=== PATIENT | female | born 1935 | race Caucasian/White ===

== ENCOUNTER 2024-11-24 11:55 | Emergency (ER) | payer MEDICARE, BC, SELFPAY ==
[2024-11-24 12:05] VITALS: BP 114/56; PULSE 88; RESP 18; TEMP 36.6; O2SAT 94
--- NOTE | 2024-11-24 12:08 | XR_ITS ---
Examination: AP chest single view TECHNIQUE: AP sitting portable chest single view Exam date and time: November 24, 2024 12:33 PM INDICATIONS: Shortness of breath today. FINDINGS: Large retrocardiac gastric hernia Pneumonia left base obscuring detail left hemidiaphragm Moderate vascular congestion Mild enlargement cardiac contour Prominent osteopenia with old right-sided rib fractures and bilateral shoulder arthroplasties IMPRESSION: Mild left base pneumonia Mild heart failure
[2024-11-24] MEDS: SCOPOLAMINE 1 MG TDSY TOP (14:16)
[2024-11-24] MEDS: ALPRazoLAM 0.25 MG TABLET 0.5 MG PO (14:16)
[2024-11-24] MEDS: AZITHROMYCIN 250 MG TABLET 500 MG PO (14:16)
--- NOTE | 2024-11-24 14:18 | PD.EDSOB ---
ED SOB =RME/HPI General Chief Complaint: Shortness of Breath/Dyspnea Stated Complaint: SOB, WEAKNESS Time Seen by Provider: 11/24/24 12:00 Arrival date/time: 11/24/24 11:55 RME / HPI RME / HPI Narrative: This section includes all my notes and documentations, including HPI, PE, and ED course. Pieter Schultz MD HPI: 89-year-old female here with about a week history of worsening cough, productive cough, purulent sputum, and dyspnea. No fever or chills. No orthopnea. No leg pain or swelling. She also reports dizziness, spinning sensation. No speech or visual impairment. No loss of power in arms or legs. No other complaints. ROS: All negative except as documented in HPI. Physical Exam: General: Alert and oriented. Appears anxious. Eyes: Conjunctivae and lids clear. EOMI. PERRL. ENT: No nasal congestion. Pharynx normal. Tympanic membrane normal bilaterally. Neck: Supple. No carotid bruit. No JVD. Heart: RRR. Lungs: No respiratory distress. Good air movement with scattered rhonchi. Abdomen: Soft and nontender. Legs: No clubbing, cyanosis, edema. Skin: Warm and dry. Neuro: Alert and oriented X 3. Cranial Nerves II-XII grossly intact. No peripheral motor deficits. I reviewed all diagnostic test results. My interpretation of the chest x-ray is increased bronchial markings. COVID/influenza negative. At this point, diagnoses include low respiratory infection and vertigo and anxiety. Treatment here included Zithromax and Xanax and scopolamine patch. Significant improvement noted. Recommended a trial of treatment at home. Based on my best medical judgment, made decision no further evaluation or treatment indicated at this time. Patient understands and agrees to the discharge instructions customized and printed, see below. Discharge instructions from Dr. Schultz: --No physical exertion for 3 days to help rest the lungs. ?-No smoking or exposure to smoking or pets or dust or cold or humidity. --Zithromax to kill the germs causing the bronchitis. --Prednisone to help decrease the swelling in the airways. --Albuterol 2 puffs every 4-6 hours as needed for cough or shortness of breath. --In case you have starting CHF, take Lasix 20 mg daily for 7 days then as needed. And when resting or sleeping, elevate your feet/ankles above your waist level and elevate head of bed. And limit all fluid intake to 4 cups per 24 hours for 3 full days. --See a private doctor on 11/28/2024 if not completely better. --Seek immediate medical care with worsening or with any concerns. Pieter Schultz MD Related Data Home Medications ?Medication ?Instructions ?Recorded ?Confirmed meclizine 25 mg tablet 25 mg PO QDAY PRN Dizziness 07/23/23 03/06/24 buspirone 15 mg tablet 15 mg PO QDAY 03/06/24 03/06/24 famotidine 10 mg tablet 10 mg PO QDAY 03/06/24 03/06/24 losartan 25 mg tablet 25 mg PO QDAY 03/06/24 03/06/24 venlafaxine 150 mg 150 mg PO BID 03/06/24 03/06/24 capsule,extended release 24 hr Previous Rx's ?Medication ?Instructions ?Recorded albuterol sulfate 90 mcg/actuation 2 inh inhalation QID PRN shortness 11/24/24 aerosol inhaler of breath or wheezing #8.5 grams azithromycin 500 mg tablet 500 mg PO QDAY 3 days #3 tabs 11/24/24 (Zithromax TRI-MOSES) furosemide 20 mg tablet (Lasix) 20 mg PO QDAY #30 tabs 11/24/24 prednisone 20 mg tablet 40 mg PO DAILY 3 days #6 tabs 11/24/24 Allergies Allergy/AdvReac Type Severity Reaction Status Date / Time ciprofloxacin Allergy Intermediate itching Verified 03/06/24 11:37 morphine Allergy Verified 03/06/24 11:37 vancomycin Allergy Verified 03/06/24 11:37 Course Quality Measures none Orders Category Date Time Status Bedside COVID-19 Antigen Test NOW Care 11/24/24 12:08 Active Bedside Influenza A&B Antigen Test NOW Care 11/24/24 12:08 Active Glucose [Bedside Blood Glucose] NOW Care 11/24/24 12:31 Active XR chest 1V portable Stat Exams 11/24/24 12:08 Completed ALPRazoLAM [Xanax] Med 11/24/24 12:07 Discontinued 0.5 mg PO X1 ONE Azithromycin Po [Zithromax PO] Med 11/24/24 14:00 Discontinued 500 mg PO X1 ONE Scopolamine [Transderm-Scop Patch] Med 11/24/24 12:07 Discontinued 1 mg TOP X1 ONE Vital Signs Vital signs: Vital Signs Temperature 97.9 F 11/24/24 12:05 Pulse Rate 88 11/24/24 12:05 Respiratory Rate 18 11/24/24 12:05 Blood Pressure 114/56 L 11/24/24 12:05 Pulse Oximetry (%) 94 L 11/24/24 12:05 Oxygen Delivery Method Room Air 11/24/24 12:05 Shortness of Breath / Dyspnea Patient data External records reviewed:: [facility] previous records Clinical information provided by:: patient Social determinants that could affect healthcare access:: none Patient has the following chronic illnesses:: Anxiety and DM How is presenting disease/condition affected by chronic disease/condition?: exacerbated by Evaluation data The following diagnostics were reviewed and interpreted by me:: lab results and radiology exam(s) Lab and/or radiology exams considered but not ordered:: None Interpretation Summary: Low respiratory infection Medications / Prescriptions Medications or Prescriptions considered but not ordered:: None Medication administrations:: Medication Administration History Discontinued Medications Alprazolam (Alprazolam 0.25 Mg Tablet) 0.5 mg PO X1 ONE Stop: 11/24/24 12:08 Last Admin: 11/24/24 14:16 Dose: 0.5 mg Documented By: SUE Azithromycin (Azithromycin 250 Mg Tablet) 500 mg PO X1 ONE Stop: 11/24/24 14:01 Last Admin: 11/24/24 14:16 Dose: 500 mg Documented By: SUE Scopolamine (Scopolamine 1 Mg Tdsy) 1 mg TOP X1 ONE Stop: 11/24/24 12:08 Last Admin: 11/24/24 14:16 Dose: 1 mg Documented By: SUE Xanax and Zithromax and scopolamine patch Consultations Consultation(s) initiated? (list below): No Diagnosis Shortness of Breath Differential Diagnosis: acute exacerbation of chronic obstructive airways disease, congestive heart failure, community acquired pneumonia, asthma with exacerbation and other (Bronchitis, lower respiratory infection) Most likely diagnosis given after review of the tests above:: Low respiratory infection Admission Indicated Admission indicated?: not indicated Explain why admission is indicated or not indicated:: Admission criteria not met Admission Request Was there a request for admission?: No Disposition Plan Disposition Plan: Discharge Discharge Attestation Discharge Attestation: The patient and all family members were given an opportunity to ask questions and understood the discharge instructions. Discharge instructions specifically effects, indications for sooner follow up or return to the emergency department, and the expected course of current diagnosis. Patient condition: Stable Discharge Plan Plan Patient Disposition: HOME (Self Care) Prescriptions/Referrals Prescriptions/Med Rec: New prednisone 20 mg tablet 40 mg PO DAILY 3 Days Qty: 6 0RF Taper: Prednisone Taper 20 mg DAILY for 2 Days and 0 Hour 10 mg DAILY for 2 Days and 0 Hour 5 mg DAILY for 7 Days and 0 Hour furosemide [Lasix] 20 mg tablet 20 mg PO QDAY Qty: 30 0RF albuterol sulfate 90 mcg/actuation HFA aerosol inhaler 2 inh inhalation QID PRN (Reason: shortness of breath or wheezing) Qty: 8.5 0RF azithromycin [Zithromax TRI-MOSES] 500 mg tablet 500 mg PO QDAY 3 Days Qty: 3 0RF No Action meclizine 25 mg tablet 25 mg PO QDAY PRN (Reason: Dizziness) Patient Comments: Take 1 tablet oral once a day as needed famotidine 10 mg Tablet 10 mg PO QDAY venlafaxine 150 mg capsule,extended release 24hr 150 mg PO BID Patient Comments: TAKE 1 CAPSULE (150 MG TOTAL) TWO TIMES DAILY BY MOUTH losartan 25 mg Tablet 25 mg PO QDAY buspirone 15 mg Tablet 15 mg PO QDAY Problem List Clinical Impression: Lower respiratory infection Patient/Caregiver Discharge Instructions Additional Instructions: Discharge instructions from Dr. Schultz: --No physical exertion for 3 days to help rest the lungs. ?-No smoking or exposure to smoking or pets or dust or cold or humidity. --Zithromax to kill the germs causing the bronchitis. --Prednisone to help decrease the swelling in the airways. --Albuterol 2 puffs every 4-6 hours as needed for cough or shortness of breath. --In case you have starting CHF, take Lasix 20 mg daily for 7 days then as needed. And when resting or sleeping, elevate your feet/ankles above your waist level and elevate head of bed. And limit all fluid intake to 4 cups per 24 hours for 3 full days. --See a private doctor on 11/28/2024 if not completely better. --Seek immediate medical care with worsening or with any concerns. Print Language: Portuguese Stand Alone Forms: Joycelyn Award Info., Patient Portal Info Letter
== END 2024-11-24 14:23 | disposition home or self-care (01) ==
LOC: SERX 14:21
PROVIDERS: Emergency Provider Emergency Medicine; PCP Family Medicine
DX: J22 Unspecified acute lower respiratory infection (principal); R42 Dizziness and giddiness; F41.9 Anxiety disorder, unspecified
CPT/HCPCS: 71045; 99283; A9270

== ENCOUNTER 2025-01-09 15:03 | Inpatient (IN) | payer MEDICARE, BC, SELFPAY ==
[2025-01-09] VITALS (15 sets, daily range): BP systolic 95–196; BP diastolic 49–106; PULSE 68–97; RESP 16–25; TEMP 35.6–37.1; O2SAT 77–98; BMI 23.9
--- NOTE | 2025-01-09 15:27 | EDNOTE_ITS ---
ED Recheck Abnl Lab Rx-RME/HPI General Chief Complaint: Recheck/Abnormal Lab/Rx Stated Complaint: ANEMIA Time Seen by Provider: 01/09/25 15:06 Arrival date/time: 01/09/25 15:03 RME / HPI RME / HPI narrative: 89-year-old female patient with significant history of COPD (2L oxygen at home at nights), DM2, depression, gastric ulcer, valley fever, and chronic vertigo was advised by PCP for evaluation regarding severe anemia. According to the patient has been battling with primary all her life, for the last several weeks been getting worse, described as dyspnea exertion, easy fatigability, low energy, and not feeling well. Patient denies any vomiting blood or blood in the stool. Denies any changes in the stool color. Related Data Home Medications ?Medication ?Instructions ?Recorded ?Confirmed meclizine 25 mg tablet 25 mg PO QDAY PRN Dizziness 07/23/23 03/06/24 buspirone 15 mg tablet 15 mg PO QDAY 03/06/2403/06 famotidine 10 mg tablet 10 mg PO QDAY 03/06/2403/06 losartan 25 mg tablet 25 mg PO QDAY 03/06/2403/06 venlafaxine 150 mg 150 mg PO BID 03/06/2403/06 capsule,extended release 24 hr Previous Rx's ?Medication ?Instructions ?Recorded albuterol sulfate 90 mcg/actuation 2 inh inhalation QI D PRN shortness 11/24/24 aerosol inhaler of breath or wheezing #8.5 g lino furosemide 20 mg tablet (Lasix) 20 mg PO QDAY #30 tabs 11/24/24 Allergies Allergy/AdvReac Type Severity Reaction Status Date / Time ciprofloxacin Allergy Intermediate itching Verified 03/06/24 11:37 morphine Allergy Verified 03/06/24 11:37 vancomycin Allergy Verified 03/06/24 11:37 Review of Systems Review of Systems Narrative Review of Systems: Review of system reviewed and within normal limits except mentioned in HPI ED Exam Narrative Physical exam: VITAL SIGNS: Reviewed. GENERAL APPEARANCE: Alert and interactive, follows commands, no acute distress, HEAD AND FACE: Non-traumatic. ENT: PERRL, pale conjunctiva, eyelid no trauma, Mucous membrane moist. NECK: Supple, nontender, no nuchal rigidity. CHEST: No tenderness, no crepitus, no paradoxical movement, no retractions. LUNGS: Clear, well ventilated, symmetric, no rales, no wheezing, no ronchi, no stridor, good breath sounds bilaterally. HEART: Regular rate, regular rhythm, no murmur, no gallops. ABDOMEN: Soft, positive bowel sounds, nondistended, no guarding, nontender, no rebound, no masses, RECTAL: Deferred. GENITAL: Deferred. NEUROLOGICAL: Gross motor function intact sensory function intact, Appropriate for age. MUSCULOSKELETAL: low back nontender, full range of motion. EXTREMITIES: Nontender, full range of motion. SKIN: Color pale, dry, no rash, no lacerations, no abrasions, no contusions. LYMPHATICS: Deferred. Course Quality Measures none Orders Category Date Time Status COVID-19 Screening Questionnaire NOW Care 01/09/25 23:27 Active Decision to Admit X1 Care 01/09/25 23:27 Completed EKG (ED ONLY) *Do not use* NOW Care 01/09/25 15:30 Completed [place] to [place] Routine Care 01/09/25 23:17 Ordered Miscellaneous Nursing Order X1 Care 01/10/25 01:12 Active Occult Blood,Stool (Nursing) NOW Care 01/09/25 15:30 Active Transfuse,blood/blood products ONCE Care 01/09/25 15:30 Active EKG (ED Only) Stat Exams 01/09/25 15:30 Draft XR chest 1V Stat Exams 01/09/25 15:52 Completed ABG [Arterial Blood Gas] Stat Lab 01/09/25 23:10 Completed ABG [Arterial Blood Gas] Stat Lab 01/10/25 01:05 Completed Blood Culture (Lab) Stat Lab 01/09/25 04:40 Received CBC Stat Lab 01/09/25 16:00 Completed Comprehensive Metabolic Panel Stat Lab 01/09/25 16:00 Completed Lactate (Lactic Acid) Stat Lab 01/09/25 04:42 Completed Occult Blood, Stool (LAB) Stat Lab 01/09/25 19:35 Ordered Partial Thromboplastin Time Stat Lab 01/09/25 16:00 Completed Procalcitonin Stat Lab 01/09/25 16:00 Completed Prothrombin Time with INR Stat Lab 01/09/25 16:00 Completed Type and Screen Stat Lab 01/09/25 16:00 Completed Urinalysis Stat Lab 01/10/25 00:53 Completed prbc [Red Blood Cells] Stat Lab 01/09/25 16:00 Completed Azithromycin Inj [Zithromax Inj] 500 mg Med 01/09/25 22:49 Discontinued Sodium Chloride 0.9% 250 ml [Ns] 250 ml IV X1 Furosemide Inj [Lasix Inj] Med 01/09/25 22:44 Discontinued 80 mg IVP X1 ONE Nitroglycerin Oint 2% [Nitro-paste Oint 2%] Med 01/09/25 23:15 Discontinued 1 inch TOP X1 ONE Nitroglycerin/D5w 50 MG IVPB [Nitroglycerin in D5w Ivpb Med 01/09/25 23:40 Discontinued ] 50 mg in 250 ml IV 5 mcg/min cefTRIAXone [Rocephin] 1,000 mg Med 01/09/25 22:48 Discontinued SODIUM CHLORIDE 0.9% (Popper) [Ns 0.9% (P)] 50 ml IV X1 BiPAP / CPAP NOW RT 01/09/25 23:40 Active O2 [Oxygen Delivery] NOW RT 01/10/25 01:30 Active Vital Signs Vital signs: Vital Signs Temperature 98.1 F 01/09/25 15:23 Pulse Rate 68 01/09/25 15:23 Respiratory Rate 24 H 01/09/25 15:23 Blood Pressure 95/49 L 01/09/25 15:23 Pulse Oximetry (%) 77 L 01/09/25 15:23 Oxygen Delivery Method Nasal Cannula 01/09/25 15:23 Oxygen Flow Rate 3 01/09/25 15:23 Recheck / Abnormal Lab / Rx MDM Narrative MDM Narrative:: 89-year-old female patient with significant history of COPD (2L oxygen at home at nights), DM2, depression, gastric ulcer, valley fever, and chronic vertigo was advised by PCP for evaluation regarding severe anemia. According to the patient has been battling with primary all her life, for the last several weeks been getting worse, described as dyspnea exertion, easy fatigability, low energy, and not feeling well. Patient denies any vomiting blood or blood in the stool. Denies any changes in the stool color. Rectal exam last done by me, it was tested negative for occult blood. CBC showed WBC count of 7.4, hemoglobin was 4.7, hematocrit of 20.1. Platelet was noted to be 198. Carbon dioxide was noted to be 35.7. Chest x-ray showed Worsening pulmonary examination, including worsening pulmonary edema, airspace opacities, and moderate left greater than right pleural effusions. On multiple reevaluation, patient was noted to be to be less alert than seen earlier. ABG was done and showed CO2 of 98 pH of 7.19 Patient received 2 units of packed RBC, supraduction IV Zithromax IV, Lasix IV Santos catheter was inserted. And draining more than 1 L of urine after reposition. Care transferred to at 1130 pm for final disposition Patient data External records reviewed:: None Clinical information provided by:: patient Social determinants that could affect healthcare access:: none Patient has the following chronic illnesses:: Congestive heart failure COPD chronic anemia How is presenting disease/condition affected by chronic disease/condition?: caused by Evaluation data The following diagnostics were reviewed and interpreted by me:: lab results, radiology exam(s) and EKG tracing(s) Lab and/or radiology exams considered but not ordered:: None Interpretation Summary: See results in [facility] Medications / Prescriptions Medications or Prescriptions considered but not ordered:: None Medication administrations:: Medication Administration History Acetaminophen (Acetaminophen 325 Mg Tablet) 650 mg PO Q6H PRN PRN Reason: PAIN SCALE 1-3 (mild Stop: 02/09/25 01:49 Acetaminophen (Acetaminophen 325 Mg Tablet) 650 mg PO Q6H PRN PRN Reason: Fever >100.4 Stop: 02/09/25 01:49 Albuterol/Ipratropium (Albuterol/Ipratropium (Duoneb) Rt Shanelle 3 Ml Nebu) 3 ml INH Q6HRRT BRYNN Stop: 02/09/25 06:59 Last Admin: 01/10/25 12:57 Dose: 3 ml Documented By: Admin: 01/10/25 07:04 Dose: 3 ml Documented By: JV Furosemide (Furosemide Inj 10 Mg/Ml 4ml Vial) 40 mg IVP BID BRYNN Stop: 02/09/25 08:59 Last Admin: 01/10/25 10:39 Dose: 40 mg Documented By: BR Azithromycin 500 mg/ Sodium (Chloride) 250 mls @ 250 mls/hr IV HS BRYNN Stop: 01/17/25 20:59 Meclizine HCl (Meclizine Hcl 25 Mg Tablet) 25 mg PO QDAY BRYNN Stop: 02/09/25 08:59 Last Admin: 01/10/25 10:40 Dose: 25 mg Documented By: BR Prednisone (Prednisone 20 Mg Tablet) 40 mg PO QDAY [facility] Stop: 02/09/25 11:14 Last Admin: 01/10/25 12:59 Dose: 40 mg Documented By: BR Venlafaxine HCl (Venlafaxine Xr 37.5 Mg Capcr) 150 mg PO QDAY [facility] Stop: 02/09/25 08:59 Last Admin: 01/10/25 10:40 Dose: 150 mg Documented By: BR Discontinued Medications Acetaminophen (Acetaminophen 325 Mg Tablet) 650 mg PO Q6H PRN PRN Reason: Fever >101.5 Stop: 02/09/25 01:49 Furosemide (Furosemide Inj 10 Mg/Ml 4ml Vial) 80 mg IVP X1 ONE Stop: 01/09/25 22:45 Last Admin: 01/09/25 23:03 Dose: 80 mg Documented By: KG Ceftriaxone Sodium 1,000 mg/ (Sodium Chloride) 50 mls @ 100 mls/hr IV X1 ONE Stop: 01/09/25 23:17 Last Infusion: 01/10/25 00:03 Dose: Infused Documented By: Admin: 01/09/25 23:33 Dose: 100 mls/hr Documented By: KG Azithromycin 500 mg/ Sodium (Chloride) 250 mls @ 250 mls/hr IV X1 ONE Stop: 01/09/25 23:48 Last Infusion: 01/10/25 01:13 Dose: Infused Documented By: Admin: 01/10/25 00:09 Dose: 250 mls/hr Documented By: KG Nitroglycerin/Dextrose (Nitroglycerin In D5w Ivpb) 50 mg in 250 mls @ 1.5 mls/hr IV .Q24H PRN; Protocol PRN Reason: PER PROTOCOL Stop: 02/08/25 23:39 Last Titration: 01/10/25 01:35 Dose: 0 mcg/min, 0 mls/hr Documented By: Titration: 01/10/25 01:30 Dose: 5 mcg/min, 1.5 mls/hr Documented By: Titration: 01/10/25 01:25 Dose: 10 mcg/min, 3 mls/hr Documented By: Titration: 01/10/25 01:20 Dose: 15 mcg/min, 4.5 mls/hr Documented By: Titration: 01/10/25 01:14 Dose: 20 mcg/min, 6 mls/hr Documented By: Titration: 01/10/25 01:00 Dose: 25 mcg/min, 7.5 mls/hr Documented By: Titration: 01/10/25 00:55 Dose: 20 mcg/min, 6 mls/hr Documented By: Titration: 01/10/25 00:50 Dose: 15 mcg/min, 4.5 mls/hr Documented By: Titration: 01/10/25 00:40 Dose: 10 mcg/min, 3 mls/hr Documented By: Admin: 01/10/25 00:07 Dose: 5 mcg/min, 1.5 mls/hr Documented By: KG Ceftriaxone Sodium 1,000 mg/ (Sodium Chloride) 50 mls @ 100 mls/hr IV HS BRYNN Stop: 01/17/25 20:59 Nitroglycerin (Nitroglycerin Oint 2% 1 Inch Packet) 1 inch TOP X1 ONE Stop: 01/09/25 23:16 Last Admin: 01/09/25 23:42 Dose: Not Given Documented By: KG Non-Admin Reason: Other, see note Comments: per Dr. Hudson, start nitro drip instead 2 units of packed RBC, IV Lasix, Nitropaste, ceftriaxone and Zithromax Consultations Consultation(s) initiated? (list below): No Diagnosis Recheck Differential Diagnosis: other (Acute on chronic respiratory failure, congestive heart failure COPD exacerbation) Most likely diagnosis given after review of the tests above:: Severe anemia, acute on chronic respiratory failure with hypoxia, COPD exacerbation, pleural effusion bilateral Admission Indicated Admission indicated?: indicated Admission Request Was there a request for admission?: Yes Admission Attestation Admission request attestation: Discussed case with [Dr. Matthew] from Hospitalist service regarding admission. Discussed patients ED course, exam findings, labs, and radiology results. The Hospitalist [agrees,] to accept the patient for admission. Disposition Plan Disposition Plan: Admit Critical Care Time Critical Care Time Critical Care Time: Yes Total Critical Care Time (min.): 45 Attestation: Critical Care Time The very real possibility of a deterioration of this patient's condition required the highest level of my preparedness for sudden, emergent intervention for the following systems: Cardiac and Metabolic. I provided critical care services, which included medication orders, frequent re-evaluations of the patient's condition and response to treatment, ordering and reviewing test results, and discussing the case with various consultants including: nursing staff, hospitalist, and more. The critical care time associated with the care of this patient was 45 minutes. Discharge Plan Plan Patient Disposition: Admit Acute Care w/in Hospital Patient condition on transfer: Benefits outweigh risks Problem List Clinical Impression: Symptomatic anemia, History of COPD, Acute and chronic respiratory failure, unspecified whether with hypoxia or hypercapnia, Acute exacerbation of CHF (congestive heart failure), Pleural effusion, bilateral
--- NOTE | 2025-01-09 15:30 | EKG_ITS ---
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: : 1935 Requested By: Rosey Bower Order Number: [id number] Reading MD: Rosey Bower Measurements Intervals [place] Rate: 89 P: 28 [place]: 119 QRS: 104 QRSD: 123 T: 12 QT: 380 QTc: 462 Interpretive Statements SINUS RHYTHM WITH SHORT [place] INTERVAL RIGHT VENTRICULAR HYPERTROPHY [SOME/ALL OF: PROMINENT R IN V1, LATE TRANSITION, RAD, SHERYL, SSS] NONSPECIFIC ST & T-WAVE ABNORMALITY Compared to ECG 07/14/2023 12:23:27 Short [place] interval now present Right ventricular hypertrophy now present Ventricular premature complex(es) no longer present T-wave abnormality still present /store/S0/[id number]/ecg/[id number].pdf
--- NOTE | 2025-01-09 15:52 | XR_ITS ---
EXAMINATION: XR chest 1V ORDERING PROVIDER: SANTIAGO La HISTORY: hypoxia TECHNIQUE: Single portable AP radiograph of the chest. COMPARISON: 01/09/2025, 2725 chest radiographs. 05/03/2022, CT chest abdomen pelvis FINDINGS: Lines and Tubes: Overlying monitoring leads. Lungs: Worsened multi lobar airspace opacities and increased interstitial markings. Worsened left greater than right basilar volume loss/consolidations. Pleura: Moderate left, mild to moderate right blunted costophrenic angles no pneumothorax. Cardiomediastinal Silhouette: Large cardiomegaly, incompletely evaluated due to pleural effusions. Soft Tissues/Bones: Intrathoracic stomach. Previously seen right fifth through eighth rib fractures bilateral shoulder arthroplasty changes. Metallic density over the neck. IMPRESSION: Worsening pulmonary examination, including worsening pulmonary edema, airspace opacities, and moderate left greater than right pleural effusions.
[2025-01-09 16:16] LABS: Basophils % (Auto) 0 % (0-2.5); Eosinophils % (Auto) 0 % (0-10); Immature Granulocytes % (Auto) 1 % (0-0); Immature Granulocytes Auto 0.06 Thou/mm3 (0.00-0.00); Lymphocytes # (Auto) 0.8 Thou/mm3 (1.0-4.8); Lymphocytes % (Auto) 11 % (10-50); Mean Corpuscular HGB Conc 23.4 g/dl (31.0-37.0); Mean Corpuscular Hemoglobin 16.8 pg (25.0-35.0); Mean Corpuscular Volume 72 fL (80-100); Monocytes # (Auto) 0.6 Thou/mm3 (0.0-0.8); Monocytes % (Auto) 8 % (0-12); Neutrophils # (Auto) 5.9 Thou/mm3 (1.8-7.7); Neutrophils % (Auto) 80 % (37-80); Nucleated Red Blood Cell # 0.04 Thou/mm3 (0.00-0.00); Nucleated Red Blood Cell % 1 /100 WBC (0); Platelet Count 198 Thou/mm3 (140-440); RDW Standard Deviation 51.8 fL (36.4-46.3); Red Blood Count 2.79 Miln/mm3 (4.00-5.20); White Blood Count 7.4 Thou/mm3 (3.6-11.0)
[2025-01-09 16:25] LABS: Hematocrit 20.1 % (36.0-46.0)
[2025-01-09 16:26] LABS: Hemoglobin 4.7 g/dL (12.0-16.0)
[2025-01-09 16:48] LABS: Alanine Aminotransferase < 7 U/L (10-49); Albumin, Serum 3.7 gm/dL (3.4-4.8); Albumin/Globulin Ratio 1.2 (1.2-2.2); Alkaline Phosphatase 74 U/L (46-116); Anion Gap 9 (7-16); Aspartate Amino Transferase 15 U/L (0-34); BUN/Creatinine Ratio 14 Ratio (12-20); Bilirubin,Total 0.7 mg/dL (0.3-1.2); Blood Urea Nitrogen 11 mg/dL (9-23); Calcium 8.5 mg/dL (8.3-10.6); Calcium (Corrected) 8.7 mg/dL (8.5-10.1); Carbon Dioxide 35.7 mMol/L (20.0-31.0); Chloride 100 mMol/L (98-107); Creatinine (Component) 0.8 mg/dL (0.6-1.3); Glucose 143 mg/dL (74-106); Osmolality,Calculated 290 (275-295); Potassium 3.8 mMol/L (3.4-5.1); Sodium 145 mMol/L (136-145); Total Protein 6.7 gm/dL (5.7-8.2); eGFR > 60 See Note
[2025-01-09 17:34] LABS: INR 1.2 (0.9-1.3); Partial Thromboplastin Time 20.3 Seconds (22.0-36.0)
[2025-01-09] MEDS: FUROSEMIDE INJ 10 MG/ML 4ML VIAL 80 MG IVP (23:03)
--- NOTE | 2025-01-09 23:12 | PC.NURSE ---
Lab at the bedside to draw blood. Audit Reviewer informed that pt currently receiving blood products and they stated blood draw would have to be done when pt no longer receiving blood products. Informed ordering provider SPENSER Currie. Asked him whether he wants to wait until all blood products are infused and then blood cultures drawn for antibiotics to be given or go ahead and give antibiotics not - provider states to give antibiotics now.
[2025-01-09 23:17] LABS: Base Excess 7 (-3-3); HCO3 37 mEq/L (20-26); Inspired Oxygen, FIO2 36 %; O2 Saturation 88 % (91-98); PCO2 98 mmHg (32.0-48.0); PO2 63 mmHg (83-108)
[2025-01-09 23:18] LABS: Allen Test Performed/OK; Puncture Site Left Radial
[2025-01-09 23:19] LABS: pH, Arterial 7.19 (7.35-7.45)
[2025-01-09] MEDS: cefTRIAXone 1,000 MG in SODIUM CHLORIDE 0.9% (Popper) 50 ML 100 MG IV (23:33)
--- NOTE | 2025-01-09 23:39 | PD.EDADDENDU ---
Emergency Room Addendum Addendum Narrative: Patient is admitted. ICU is at the bedside. Care is taken over from the PA at 2315. Patient is short of breath. Patient did have her oxygen up to 4L, which could likely explain the increase of CO2. The combination of her pleural effusions, CHF, and anemia are likely the etiology of the patient's symptoms. Patient is awake and responding to my questions. She is able to tell me that she wants to be a full code with intubation. Nitroglycerin and diuresis ordered. 2349: Bedside US done by me to check for fiore placement identification. 2V bladder view obtained. US done by me showed a full bladder. I do not see the fiore in the bladder. Nursing will replace the fiore catheter. 0105: Fiore catheter was replaced. 1200cc of clear urine noted to be in the fiore bag. 0108: Discussed case with [the resident physician, attending Dr. Louise] from Hospitalist service regarding admission. Discussed patients ED course, exam findings, labs, and radiology results. The Hospitalist [agrees] to accept the patient for admission. Critical Care Time: 45 minutes The high probability of sudden, clinically significant deterioration in the patient?s condition required the highest level of my preparedness to intervene urgently. The services I provided to this patient were to treat and/or prevent clinically significant deterioration. Services included the following: chart data review, reviewing nursing notes and/or old charts, documentation time, virtualization consultant collaboration regarding findings and treatment options, medication orders and management, direct patient care, vital sign assessments and ordering, interpreting and reviewing diagnostic studies and lab tests. Aggregate critical care time includes only time during which I was engaged in work directly related to the patient?s care, as described above, whether at bedside or elsewhere in the Emergency Department. It did not include time spent performing other reported procedures or the services of residents, students, nurses or physician assistants.
--- NOTE | 2025-01-09 23:43 | PC.NURSE ---
RT at the bedside, pt placed on bipap at this time.
[2025-01-10] VITALS (26 sets, daily range): BP systolic 114–174; BP diastolic 53–81; PULSE 67–91; RESP 16–26; TEMP 35.6–36.6; O2SAT 86–100
[2025-01-10 00:02] LABS: Procalcitonin 0.09 ng/ml (0.0-0.49)
[2025-01-10] MEDS: Nitroglycerin/D5w 50 MG IVPB 50 MG/250 ML BTL IV (00:07)
[2025-01-10] MEDS: AZITHROMYCIN INJ 500 MG in SODIUM CHLORIDE 0.9% 250 ML 250 ML 250 MG IV ×2 (00:09→20:54)
--- NOTE | 2025-01-10 01:05 | PC.NURSE ---
RT at the bedside for ABG
[2025-01-10 01:11] LABS: Base Excess 11 (-3-3); HCO3 40 mEq/L (20-26); O2 Saturation 94 % (91-98); PCO2 83 mmHg (32.0-48.0); PO2 70 mmHg (83-108); pH, Arterial 7.29 (7.35-7.45)
--- NOTE | 2025-01-10 01:12 | PC.NURSE ---
Dr. Hudson at the bedside, verbal order to wean pt off nitroglycerin drip at this time now that pt has voided a significant amount.
[2025-01-10 01:13] LABS: Allen Test Performed/OK; Inspired Oxygen, FIO2 35 %; Puncture Site Right Radial
--- NOTE | 2025-01-10 01:42 | PC.NURSE ---
Admitting resident at the bedside.
--- NOTE | 2025-01-10 02:07 | PD.RESHP ---
Documentation for date of: 01/10/25 [facility] History of Present Illness History of present illness: The patient is an 89-year-old female with significant past medical history of COPD on 2 L home oxygen at night, diabetes mellitus type 2, gastric ulcer, depression, valley fever, chronic vertigo with on and off anemia presented to ED with chief complaint of SOB that has been worsening for past several weeks. She reported that she lives with her friend at home who has [employer] training. She reported having low energy, bilateral lower limb edema, easy fatigability and weak. She also admitted mild lightheadedness, but denied any sore throat, chest pain, abdominal pain, any changes in bowel or bladder habit including any discoloration or blood in the stool. She also denied any fever or chills, nausea or vomiting. In the ED, vitals were initially fairly stable, but later on her SOB worsened and her blood pressure was elevated up to 190s systolic. She was saturating on 3 L NC, later was switched to BiPAP. Labs were significant for hemoglobin 4.4, hematocrit 19.1, MCV 73, RDW 52.1, PT 13.0, INR 1.2, PTT 20.3. Blood gas in the late evening at 2310 revealed pH 7.19, pCO2 98, pO2 63, bicarb 37. The patient was placed on BiPAP, and ABG improved with pH 7.29, pCO2 83, pO2 70 and HCO3 40. Chemistry panel revealed sodium 145, potassium 3.8, bicarb 35.7, blood sugar 143, lipid profile WNL, vitamin B12 and folate WNL. UA revealed urine nitrite positive, leukocyte esterase positive, WBC 7 with 4+ bacteria. Stool occult blood negative. CXR revealed moderate chronic heart failure, and repeat CXR revealed worsening of pulmonary edema with bilateral pleural effusions. PMH: As mentioned above SHX: Cholecystectomy, bilateral knee replacement, bilateral shoulder surgery Family history: Extensive cardiac history on mother, father and sister with CHF Social history: Denies ever smoking cigarette, but admitted secondhand exposure with her father, denies drinking alcohol or any illicit drug use In the ED, patient was given IV furosemide 80 Mg x 1, ceftriaxone 1 g x 1, nitroglycerin 1 inch topical patches, azithromycin 500 Mg IV x 1, and started on nitroglycerin drip 50 Mcg per minute. Patient was given total of 3 units of PRBC. She was admitted to telemetry unit for further management of acute hypoxic hypercapnic respiratory failure 2/2 COPD exacerbation and severe symptomatic anemia Review of Systems Review of Systems Systems Reviewed: All systems reviewed, normal except as documented Exam Vital Signs Temp Pulse Resp BP Pulse Ox O2 Del Method O2 Flow Rate 96.7 F L 85 22 H 151/71 H 98 BiPAP 2 01/10/25 00:44 01/10/25 01:35 01/10/25 01:35 01/10/25 00:59 01/10/25 01:35 01/10/25 00:59 01/10/25 01:33 FiO2 35 01/10/25 01:35 Narrative Exam General: Elderly, cooperative female, no acute distress, Alert and Oriented x 3 HEENT: Moist mucous membranes, oropharynx clear Neck: Supple, No masses, No JVD CVS: S1S2 Regular rate and rhythm, severe crescendo-decrescendo systolic murmur over right second and the left base Lungs: Clear to auscultation with no accessory use, no wheeze no rhonchi Abd: Soft, NT/ND, +BS, no organomegaly Ext: 3-4+ bilateral lower limb edema extended up to the mid thigh, erythema of left toes Skin: No rash Psych: Appropriate mood and affect Results: Labs 01/10/25 04:42 01/10/25 04:42 Labs: Short CBC 01/09/25 Range/Units 16:00 WBC 7.4 (3.6-11.0) Thou/mm3 Hgb 4.7 L* (12.0-16.0) g/dL Hct 20.1 L* (36.0-46.0) % Plt Count 198 D (140-440) Thou/mm3 BMP 01/09/25 16:00 Sodium 145 Potassium 3.8 D Chloride 100 Carbon Dioxide 35.7 H BUN 11 Creatinine 0.8 Glucose 143 H Calcium 8.5 Liver Function 01/09/25 Range/Units 16:00 Total Bilirubin 0.7 (0.3-1.2) mg/dL AST 15 (0-34) U/L ALT < 7 L (10-49) U/L Alkaline Phosphatase 74 (46-116) U/L Albumin 3.7 (3.4-4.8) gm/dL ABG Interpretation ABG results: 01/09/25 01/10/25 23:10 01:05 ABG pH 7.19 L* 7.29 L D ABG pCO2 98 H* 83 H* D ABG pO2 63 L 70 L ABG HCO3 37 H 40 H ABG O2 Saturation 88 L 94 ABG Base Excess 7 H 11 H Quality Measures Quality Measures VTE prophylaxis Advance care planning discussed with:: patient Medications Home Medications and Allergies Home Medications ?Medication ?Instructions ?Recorded ?Confirmed ?Type meclizine 25 mg tablet 25 mg PO QDAY PRN Dizziness 07/23/23 03/06/24 History buspirone 15 mg tablet 15 mg PO QDAY 03/06/24 03/06/24 History famotidine 10 mg tablet 10 mg PO QDAY 03/06/24 03/06/24 History losartan 25 mg tablet 25 mg PO QDAY 03/06/24 03/06/24 History venlafaxine 150 mg 150 mg PO BID 03/06/24 03/06/24 History capsule,extended release 24 hr Allergies Allergy/AdvReac Type Severity Reaction Status Date / Time ciprofloxacin Allergy Intermediate itching Verified 03/06/24 11:37 morphine Allergy Verified 03/06/24 11:37 vancomycin Allergy Verified 03/06/24 11:37 Visit Medications Acetaminophen (Acetaminophen 325 Mg Tablet) 650 mg PO Q6H PRN PRN Reason: Fever >101.5 Stop: 02/09/25 01:49 Acetaminophen (Acetaminophen 325 Mg Tablet) 650 mg PO Q6H PRN PRN Reason: PAIN SCALE 1-3 (mild Stop: 02/09/25 01:49 Albuterol/Ipratropium (Albuterol/Ipratropium (Duoneb) Rt Shanelle 3 Ml Nebu) 3 ml INH Q6HRRT BRYNN Stop: 02/09/25 06:59 Furosemide (Furosemide Inj 10 Mg/Ml 4ml Vial) 40 mg IVP BID BRYNN Stop: 02/09/25 08:59 Azithromycin 500 mg/ Sodium (Chloride) 250 mls @ 250 mls/hr IV HS BRYNN Stop: 01/17/25 20:59 Ceftriaxone Sodium 1,000 mg/ (Sodium Chloride) 50 mls @ 100 mls/hr IV HS BRYNN Stop: 01/17/25 20:59 Discontinued Medications Furosemide (Furosemide Inj 10 Mg/Ml 4ml Vial) 80 mg IVP X1 ONE Stop: 01/09/25 22:45 Last Admin: 01/09/25 23:03 Dose: 80 mg Ceftriaxone Sodium 1,000 mg/ (Sodium Chloride) 50 mls @ 100 mls/hr IV X1 ONE Stop: 01/09/25 23:17 Last Infusion: 01/10/25 00:03 Dose: Infused Azithromycin 500 mg/ Sodium (Chloride) 250 mls @ 250 mls/hr IV X1 ONE Stop: 01/09/25 23:48 Last Infusion: 01/10/25 01:13 Dose: Infused Nitroglycerin/Dextrose (Nitroglycerin In D5w Ivpb) 50 mg in 250 mls @ 1.5 mls/hr IV .Q24H PRN; Protocol PRN Reason: PER PROTOCOL Stop: 02/08/25 23:39 Last Titration: 01/10/25 01:35 Dose: 0 mcg/min, 0 mls/hr Nitroglycerin (Nitroglycerin Oint 2% 1 Inch Packet) 1 inch TOP X1 ONE Stop: 01/09/25 23:16 Last Admin: 01/09/25 23:42 Dose: Not Given Assessment & Plan Plan The patient is an 89-year-old female with significant past medical history of COPD on 2 L home oxygen at night, diabetes mellitus type 2, gastric ulcer, depression, valley fever, chronic vertigo with on and off anemia presented to ED with chief complaint of SOB that has been worsening for past several weeks She was admitted to telemetry unit for further management of acute hypoxic hypercapnic respiratory failure 2/2 COPD exacerbation and severe symptomatic anemia. #Acute hypoxic hypercapnic respiratory failure #Pulmonary edema #Possible CHF exacerbation #COPD exacerbation The patient complained of SOB that has been worsening for past several weeks, reported having low energy, bilateral lower limb edema, easy fatigability and weakness. Physical examination was significant for bilateral lower limb pitting edema extending up to mid thigh. Chest x-ray was significant for moderate CHF later was found to have pulmonary edema. ABG revealed pH 7.19 and PCO2 98. Received Lasix 80 Mg IV x 1 in the ED, ceftriaxone 1 g x 1, nitroglycerin drip -Started on IV Lasix 40 Mg twice daily -Started on BiPAP -Strict ins and outs -Duonebs Q6H -Limit fluid and salt intake when started on diet -Ceftriaxone 1 g IV daily and azithromycin 500 Mg IV daily in the setting of possible COPD exacerbation -TTE ordered, may consider consulting cardiology #Severe symptomatic microcytic anemia Likely secondary to mechanical destruction due to severe aortic stenosis Patient denied any dark bowel movement, or bloody on her stool, occult blood test was negative making GI blood loss less likely Physical examination was significant for severe crescendo-decrescendo midsystolic murmur at right second intercostal space Hemoglobin during presentation was 4.4, hematocrit 19.1, MCV 73, RDW 52.1 -Transfused 3 units of PRBC -Pending posttransfusion H&H -TTE ordered, may consider consulting cardiology -Iron panel, reticulocyte count, peripheral blood smear, ferritin level ordered -Continue to monitor H&H, and transfuse PRBC if hemoglobin less than 7 #Depression -Started on venlafaxine 150 Mg ER daily -Resume home medications after reconciliation #Chronic vertigo -Started on meclizine 25 Mg daily #Diabetes mellitus type 2 A1c ordered -Monitor BMP in the a.m. Health maintenance: Dispo: Patient admitted to telemetry unit for further management of acute hypoxic hypercapnic respiratory failures and severe symptomatic microcytic anemia Diet: N.p.o. for now DVT prophylaxis: SCDs CODE STATUS: DNR, okay to intubate if needed The patient's management plan was discussed with my attending physician MD Jose F Moyer MD, PGY2 Attending Provider Attestation/Addendum 89-year-old female with COPD was admitted for acute on chronic hypoxic and hypercapnic respiratory failure. The patient required BiPAP on presentation she had hypertensive urgency. The patient was given Lasix but she did not pass urine however the catheter was repositioned and she may need a good amount of urine afterwards. The patient also received nitroglycerin IV drip for her high blood pressure. Patient denies chest pain. She is tolerating BiPAP. She is more alert and oriented after 60 minutes on BiPAP she is making good amount of urine. The patient was started on packed red blood cell transfusion for severe symptomatic anemia. FOBT is negative. Discussed with housestaff
[2025-01-10 02:36] LABS: Collection Type, Urine Clean Catch; Squamous Epithelial Cell,Urine 0 /hpf (0-5)
[2025-01-10 02:49] LABS: Bacteria,Urine 2+; Bilirubin,Urine Negative (Negative); Blood,Urine Negative (Negative); Clarity,Urine Clear (Clear/Hazy); Color,Urine Colorless (Lt Yel-Yel); Glucose, Urine Negative (Negative); Hyaline Casts,Urine < 1 /hpf (0-1); Ketones,Urine Negative (Negative); Leukocyte Esterase,Urine Negative (Negative); Nitrite,Urine Negative (Negative); Protein,Urine Negative (Neg - Trace); RBC,Urine 1 /hpf (0-3); Specific Gravity,Urine 1.006 (1.001-1.035); Urobilinogen,Urine Negative mg/dL (0.0-1.0); WBC,Urine 1 /hpf (0-5)
[2025-01-10 05:08] LABS: Lactate (Lactic Acid) 1.1 mMol/L (0.4-2.0)
[2025-01-10 05:16] LABS: Basophils % (Auto) 0 % (0-2.5); Eosinophils % (Auto) 0 % (0-10); Hematocrit 32.2 % (36.0-46.0); Hemoglobin 9.1 g/dL (12.0-16.0); Immature Granulocytes % (Auto) 1 % (0-0); Lymphocytes # (Auto) 0.5 Thou/mm3 (1.0-4.8); Lymphocytes % (Auto) 6 % (10-50); Mean Corpuscular HGB Conc 28.3 g/dl (31.0-37.0); Mean Corpuscular Hemoglobin 21.5 pg (25.0-35.0); Mean Corpuscular Volume 76 fL (80-100); Monocytes # (Auto) 0.9 Thou/mm3 (0.0-0.8); Monocytes % (Auto) 11 % (0-12); Neutrophils # (Auto) 6.7 Thou/mm3 (1.8-7.7); Neutrophils % (Auto) 82 % (37-80); Nucleated Red Blood Cell # 0.06 Thou/mm3 (0.00-0.00); Nucleated Red Blood Cell % 1 /100 WBC (0); Platelet Count 125 Thou/mm3 (140-440); RDW Standard Deviation 54.5 fL (36.4-46.3); Red Blood Count 4.24 Miln/mm3 (4.00-5.20); White Blood Count 8.2 Thou/mm3 (3.6-11.0)
[2025-01-10 05:34] LABS: Ferritin 11 ng/mL (7.3-270.7); Iron 11 mcg/dL (50-170); Percent Iron Saturation 2 % (20-55); Total Iron Binding Capacity 451 mcg/dL (250-425); Unsaturated Iron Binding 440 (225-295)
[2025-01-10 05:39] LABS: Glucose Estimated Average 114 mg/dL (80-131); Hemoglobin A1C 5.6 % Hgb (4.8-6.0)
[2025-01-10 05:51] LABS: Alanine Aminotransferase < 7 U/L (10-49); Albumin, Serum 3.9 gm/dL (3.4-4.8); Albumin/Globulin Ratio 1.3 (1.2-2.2); Alkaline Phosphatase 78 U/L (46-116); Anion Gap 7 (7-16); Aspartate Amino Transferase 14 U/L (0-34); BUN/Creatinine Ratio 15 Ratio (12-20); Bilirubin,Total 0.7 mg/dL (0.3-1.2); Blood Urea Nitrogen 12 mg/dL (9-23); Calcium 8.5 mg/dL (8.3-10.6); Calcium (Corrected) 8.6 mg/dL (8.5-10.1); Carbon Dioxide > 40.0 mMol/L (20.0-31.0); Cardiac Risk Estimate 2.3 RATIO (3.7-5.6); Chloride 97 mMol/L (98-107); Cholesterol 77 mg/dL (132-200); Creatinine (Component) 0.8 mg/dL (0.6-1.3); Glucose 156 mg/dL (74-106); HDL Cholesterol 34 mg/dL (40-60); LDH (Lactate Dehydrogenase) 176 U/L (120-246); LDL Cholesterol,Calculated 24 mg/dL (0-130); Magnesium 1.9 mg/dL (1.6-2.6); Osmolality,Calculated 289 (275-295); Potassium 3.4 mMol/L (3.4-5.1); Sodium 144 mMol/L (136-145); Thyroid Stimulating Hormone 0.72 uIU/mL (0.55-4.78); Total Protein 6.9 gm/dL (5.7-8.2); Triglycerides 94 mg/dL (30-150); eGFR > 60 See Note
--- NOTE | 2025-01-10 06:53 | PC.NURSE ---
RT at the bedside.
[2025-01-10] MEDS: ALBUTEROL/IPRATROPIUM (Duoneb) RT SOL 3 ML NEBU INH ×3 (07:04→18:05)
--- NOTE | 2025-01-10 07:50 | PC.NURSE ---
report given to Abbe on tele floor. pt to go to room 276
--- NOTE | 2025-01-10 09:47 | PD.RESPRO ---
Documentation for date of: 01/10/25 Exam Vital Signs Temp Pulse Resp BP Pulse Ox O2 Del Method O2 Flow Rate 97.0 F 85 26 H 141/68 H 95 BiPAP 35 01/10/25 07:51 01/10/25 08:55 01/10/25 08:55 01/10/25 07:51 01/10/25 08:55 01/10/25 07:51 01/10/25 07:12 FiO2 40 01/10/25 08:55 Objective Labs 01/10/25 04:42 01/10/25 04:42 Labs: Laboratory Results - last 24 hr 01/09/25 01/09/25 01/09/25 04:42 16:00 23:10 WBC 7.4 RBC 2.79 L Hgb 4.7 L* Hct 20.1 L* MCV 72 L MCH 16.8 L MCHC 23.4 L RDW Std Deviation 51.8 H Plt Count 198 D Neut % (Auto) 80 Lymph % (Auto) 11 [place] % (Auto) 8 Eos % (Auto) 0 Baso % (Auto) 0 Neut # (Auto) 5.9 Lymph # (Auto) 0.8 L [place] # (Auto) 0.6 Eos # (Auto) 0.0 Baso # (Auto) 0.0 Immature Gran # (Auto) 0.06 H Absolute Nucleated RBC 0.04 H Immature Gran % 1 H Nucleated RBC % 1 H PT 13.0 H INR 1.2 APTT 20.3 L Puncture Site Left Radial ABG pH 7.19 L* ABG pCO2 98 H* ABG pO2 63 L ABG HCO3 37 H ABG O2 Saturation 88 L ABG Base Excess 7 H FiO2 36 Sodium 145 Potassium 3.8 D Chloride 100 Carbon Dioxide 35.7 H Anion Gap 9 BUN 11 Creatinine 0.8 Estim Creat Clear Calc Not Performed. eGFR > 60 BUN/Creatinine Ratio [address] Glu mg/dL Hemoglobin A1c Calculated Osmolality 290 Lactic Acid 1.1 Calcium 8.5 Corrected Calcium 8.7 Magnesium Iron TIBC Iron Saturation Unsat Iron Binding Ferritin Total Bilirubin 0.7 AST 15 ALT < 7 L Alkaline Phosphatase 74 Lactate Dehydrogenase Total Protein 6.7 Albumin 3.7 Globulin 3.0 Albumin/Globulin Ratio 1.2 Triglycerides Cholesterol LDL Cholesterol, Calc HDL Cholesterol Cholesterol/HDL Ratio Procalcitonin 0.09 TSH Ur Collection Type Urine Color Urine Clarity Urine pH Ur Specific [place] Urine Protein Urine Glucose (UA) Urine Ketones Urine Blood Urine Nitrite Urine Bilirubin Urine Urobilinogen (Auto) Ur Leukocyte Esterase Urine RBC Urine WBC Ur Squamous Epith Cells Urine Bacteria Hyaline Casts Blood Type O Positive Antibody Screen NEGATIVE Crossmatch See Detail Blood Bank Wristband ID Yes 01/10/25 01/10/25 01/10/25 00:53 01:05 04:42 WBC 8.2 RBC 4.24 Hgb 9.1 L D Hct 32.2 L D MCV 76 L MCH 21.5 L MCHC 28.3 L RDW Std Deviation 54.5 H Plt Count 125 L D Neut % (Auto) 82 H Lymph % (Auto) 6 L [place] % (Auto) 11 Eos % (Auto) 0 Baso % (Auto) 0 Neut # (Auto) 6.7 Lymph # (Auto) 0.5 L [place] # (Auto) 0.9 H Eos # (Auto) 0.0 Baso # (Auto) 0.0 Immature Gran # (Auto) 0.10 H Absolute Nucleated RBC 0.06 H Immature Gran % 1 H Nucleated RBC % 1 H PT INR APTT Puncture Site Right Radial ABG pH 7.29 L D ABG pCO2 83 H* D ABG pO2 70 L ABG HCO3 40 H ABG O2 Saturation 94 ABG Base Excess 11 H FiO2 35 Sodium 144 Potassium 3.4 Chloride 97 L Carbon Dioxide > 40.0 H Anion Gap 7 BUN 12 Creatinine 0.8 Estim Creat Clear Calc 41.0 L eGFR > 60 BUN/Creatinine Ratio [address]ucose [address] Glu mg/dL 114 Hemoglobin A1c 5.6 Calculated Osmolality 289 Lactic Acid Calcium 8.5 Corrected Calcium 8.6 Magnesium 1.9 Iron 11 L TIBC 451 H Iron Saturation 2 L Unsat Iron Binding 440 H Ferritin 11 Total Bilirubin 0.7 AST 14 ALT < 7 L Alkaline Phosphatase 78 Lactate Dehydrogenase 176 Total Protein 6.9 Albumin 3.9 Globulin 3.0 Albumin/Globulin Ratio 1.3 Triglycerides 94 Cholesterol 77 L LDL Cholesterol, Calc 24 HDL Cholesterol 34 L Cholesterol/HDL Ratio 2.3 L Procalcitonin TSH 0.72 Ur Collection Type Clean Catch Urine Color Colorless A Urine Clarity Clear Urine pH 5.0 Ur Specific [place] 1.006 Urine Protein Negative Urine Glucose (UA) Negative Urine Ketones Negative Urine Blood Negative Urine Nitrite Negative Urine Bilirubin Negative Urine Urobilinogen (Auto) Negative Ur Leukocyte Esterase Negative Urine RBC 1 Urine WBC 1 Ur Squamous Epith Cells 0 Urine Bacteria 2+ A Hyaline Casts < 1 Blood Type Antibody Screen Crossmatch Blood Bank Wristband ID ABG Interpretation ABG results: 01/09/25 01/10/25 23:10 01:05 ABG pH 7.19 L* 7.29 L D ABG pCO2 98 H* 83 H* D ABG pO2 63 L 70 L ABG HCO3 37 H 40 H ABG O2 Saturation 88 L 94 ABG Base Excess 7 H 11 H Quality Measures Quality Measures VTE prophylaxis Assessment & Plan Assessment Current Active Medications: Generic Name Dose Route Start Last Admin Trade Name Freq PRN Reason Stop Dose Admin Acetaminophen 650 mg 01/10/25 01:50 Acetaminophen 325 Mg Tablet PO 02/09/25 01:49 Q6H PRN PAIN SCALE 1-3 (mild Acetaminophen 650 mg 01/10/25 06:05 Acetaminophen 325 Mg Tablet PO 02/09/25 01:49 Q6H PRN Fever >100.4 Albuterol/Ipratropium 3 ml 01/10/25 07:00 01/10/25 07:04 Albuterol/Ipratropium (Duoneb) Rt Shanelle 3 Ml Nebu INH 02/09/25 06:59 3 ml Q6HRRT BRYNN Administration Furosemide 40 mg 01/10/25 09:00 Furosemide Inj 10 Mg/Ml 4ml Vial IVP 02/09/25 08:59 BID BRYNN Azithromycin 500 mg/ Sodium 250 mls @ 250 mls/hr 01/10/25 21:00 Chloride IV 01/17/25 20:59 HS BRYNN Ceftriaxone Sodium 1,000 mg/ 50 mls @ 100 mls/hr 01/10/25 21:00 Sodium Chloride IV 01/17/25 20:59 HS BRYNN Meclizine HCl 25 mg 01/10/25 09:00 Meclizine Hcl 25 Mg Tablet PO 02/09/25 08:59 QDAY BRYNN Venlafaxine HCl 150 mg 01/10/25 09:00 Venlafaxine Xr 37.5 Mg Capcr PO 02/09/25 08:59 QDAY BRYNN
--- NOTE | 2025-01-10 09:48 | PD.RESCONSUL ---
HPI Data of Consult Patient: new to practice Consult date: 01/10/25 Requesting Physician: Tray Becerril MD Admitting Provider: Tray Becerril MD Attending Provider: Tray Becerril MD Primary Care Provider: Varun Diaz MD Consult Narrative History of present illness: Ms. Viera is a 89-year-old female with significant past medical history of COPD on 2 L home oxygen at night, diabetes mellitus type 2, gastric ulcer, depression, valley fever, chronic vertigo and anemia presented to ED with chief complaint of SOB that has been worsening for past several weeks. Patient reported having low energy, bilateral lower limb edema, easy fatigability and weakness with mild lightheadedness, patient denies any chest pain, chest pressure nausea and vomiting. Patient denies history of cardiac disease, denies following up with any guest services director. Patient is on BiPAP currently unable to provide more history, most history obtained from chart review. ED course: On presentation in ED, patient's blood pressure 95/49 millimeters mercury, heart rate 68, respiratory rate 24, temp 98.1, O2 sat 77 on 3 L nasal cannula. ED labs significant for hemoglobin 4.4, hematocrit 19.1, MCV 73, RDW 52.1, PT 13.0, INR 1.2, PTT 20.3. Blood gas in the late evening at 2310 revealed pH 7.19, pCO2 98, pO2 63, bicarb 37. The patient was placed on BiPAP, and ABG improved with pH 7.29, pCO2 83, pO2 70 and HCO3 40. Chemistry panel revealed sodium 145, potassium 3.8, bicarb 35.7, blood sugar 143, lipid profile WNL, vitamin B12 and folate WNL. UA revealed urine nitrite positive, leukocyte esterase positive, WBC 7 with 4+ bacteria. Stool occult blood negative. CXR revealed moderate chronic heart failure, and repeat CXR revealed worsening of pulmonary edema with bilateral pleural effusions. Patient was given IV furosemide 80 Mg x 1, ceftriaxone 1 g x 1, nitroglycerin 1 inch topical patches, azithromycin 500 Mg IV x 1, and started on nitroglycerin drip 50 Mcg stopped at 01:35. Patient was given total of 3 units of PRBC. She was admitted to telemetry unit for further management of acute hypoxic hypercapnic respiratory failure 2/2 COPD exacerbation and severe symptomatic anemia. Cardiology consulted due to patient's underlying moderate to severe aortic stenosis and concern of CHF exacerbation. cc:: cc: Tray Becerril MD Review of Systems Review of Systems ROS Unobtainable: other (Patient on BiPAP) Past Medical History Past Medical History Comments PMH COMMENT: PMX: COPD on 2 L home oxygen at night, diabetes mellitus type 2, gastric ulcer, depression, valley fever, chronic vertigo and anemia SHX: Cholecystectomy, bilateral knee replacement, bilateral shoulder surgery Family history: Extensive cardiac history on mother, father and sister with CHF Social history: Denies ever smoking cigarette, but admitted secondhand exposure with her father, denies drinking alcohol or any illicit drug use Exam Vital Signs Temp Pulse Resp BP Pulse Ox O2 Del Method O2 Flow Rate 97.0 F 85 26 H 141/68 H 95 BiPAP 35 01/10/25 07:51 01/10/25 08:55 01/10/25 08:55 01/10/25 07:51 01/10/25 08:55 01/10/25 07:51 01/10/25 07:12 FiO2 40 01/10/25 08:55 Narrative Exam Constitutional: Elderly female somewhat short of breath on a BiPAP machine HEENT: Normocephalic, atraumatic, mucous membranes moist. CVS: RRR, S1 and S2 present, no murmurs, rubs or gallops . RESP: CTAB, no SOB, no rales. There is bilateral rhonchi with some wheezing GI: Normal BS, Nontender/Nondistended. MSK: Full range of motion, No trauma or deformities or masses. Skin: There is mild diffused erythema in the bilateral lower extremities with 4+ pitting edema bilaterally. Neuro: AAOx3. cabinet assembler II-XII grossly intact. Sensation grossly intact. Psych: Appropriate mood and affect. Results Labs 01/11/25 04:34 01/11/25 13:29 Labs: Short CBC 01/09/25 01/10/25 Range/Units 16:00 04:42 WBC 7.4 8.2 (3.6-11.0) Thou/mm3 Hgb 4.7 L* 9.1 L D (12.0-16.0) g/dL Hct 20.1 L* 32.2 L D (36.0-46.0) % Plt Count 198 D 125 L D (140-440) Thou/mm3 BMP 01/09/25 01/10/25 16:00 04:42 Sodium 145 144 Potassium 3.8 D 3.4 Chloride 100 97 L Carbon Dioxide 35.7 H > 40.0 H BUN 11 12 Creatinine 0.8 0.8 Glucose 143 H 156 H Calcium 8.5 8.5 Liver Function 01/09/25 01/10/25 Range/Units 16:00 04:42 Total Bilirubin 0.7 0.7 (0.3-1.2) mg/dL AST 15 14 (0-34) U/L ALT < 7 L < 7 L (10-49) U/L Alkaline Phosphatase 74 78 (46-116) U/L Albumin 3.7 3.9 (3.4-4.8) gm/dL Urine 01/10/25 Range/Units 00:53 Urine Color Colorless A (Lt Yel-Yel) Urine Clarity Clear (Clear/Hazy) Urine pH 5.0 (5.0-7.0) Ur Specific [place] 1.006 (1.001-1.035) Urine Protein Negative (Neg - Trace) Urine Glucose (UA) Negative (Negative) ABG Interpretation ABG results: 01/09/25 01/10/25 23:10 01:05 ABG pH 7.19 L* 7.29 L D ABG pCO2 98 H* 83 H* D ABG pO2 63 L 70 L ABG HCO3 37 H 40 H ABG O2 Saturation 88 L 94 ABG Base Excess 7 H 11 H Quality Measures Quality Measures VTE prophylaxis Advance care planning discussed with:: patient Medications Home Medications and Allergies Home Medications ?Medication ?Instructions ?Recorded ?Confirmed ?Type meclizine 25 mg tablet 25 mg PO QDAY PRN Dizziness 07/23/23 03/06/24 History buspirone 15 mg tablet 15 mg PO QDAY 03/06/24 03/06/24 History famotidine 10 mg tablet 10 mg PO QDAY 03/06/24 03/06/24 History losartan 25 mg tablet 25 mg PO QDAY 03/06/24 03/06/24 History venlafaxine 150 mg 150 mg PO BID 03/06/24 03/06/24 History capsule,extended release 24 hr Allergies Allergy/AdvReac Type Severity Reaction Status Date / Time ciprofloxacin Allergy Intermediate itching Verified 03/06/24 11:37 morphine Allergy Verified 03/06/24 11:37 vancomycin Allergy Verified 03/06/24 11:37 Visit Medications Acetaminophen (Acetaminophen 325 Mg Tablet) 650 mg PO Q6H PRN PRN Reason: PAIN SCALE 1-3 (mild Stop: 02/09/25 01:49 Acetaminophen (Acetaminophen 325 Mg Tablet) 650 mg PO Q6H PRN PRN Reason: Fever >100.4 Stop: 02/09/25 01:49 Albuterol/Ipratropium (Albuterol/Ipratropium (Duoneb) Rt Shanelle 3 Ml Nebu) 3 ml INH Q6HRRT BRYNN Stop: 02/09/25 06:59 Last Admin: 01/10/25 07:04 Dose: 3 ml Furosemide (Furosemide Inj 10 Mg/Ml 4ml Vial) 40 mg IVP BID BRYNN Stop: 02/09/25 08:59 Azithromycin 500 mg/ Sodium (Chloride) 250 mls @ 250 mls/hr IV HS BRYNN Stop: 01/17/25 20:59 Ceftriaxone Sodium 1,000 mg/ (Sodium Chloride) 50 mls @ 100 mls/hr IV HS BRYNN Stop: 01/17/25 20:59 Meclizine HCl (Meclizine Hcl 25 Mg Tablet) 25 mg PO QDAY BRYNN Stop: 02/09/25 08:59 Venlafaxine HCl (Venlafaxine Xr 37.5 Mg Capcr) 150 mg PO QDAY [facility] Stop: 02/09/25 08:59 Discontinued Medications Acetaminophen (Acetaminophen 325 Mg Tablet) 650 mg PO Q6H PRN PRN Reason: Fever >101.5 Stop: 02/09/25 01:49 Furosemide (Furosemide Inj 10 Mg/Ml 4ml Vial) 80 mg IVP X1 ONE Stop: 01/09/25 22:45 Last Admin: 01/09/25 23:03 Dose: 80 mg Ceftriaxone Sodium 1,000 mg/ (Sodium Chloride) 50 mls @ 100 mls/hr IV X1 ONE Stop: 01/09/25 23:17 Last Infusion: 01/10/25 00:03 Dose: Infused Azithromycin 500 mg/ Sodium (Chloride) 250 mls @ 250 mls/hr IV X1 ONE Stop: 01/09/25 23:48 Last Infusion: 01/10/25 01:13 Dose: Infused Nitroglycerin/Dextrose (Nitroglycerin In D5w Ivpb) 50 mg in 250 mls @ 1.5 mls/hr IV .Q24H PRN; Protocol PRN Reason: PER PROTOCOL Stop: 02/08/25 23:39 Last Titration: 01/10/25 01:35 Dose: 0 mcg/min, 0 mls/hr Nitroglycerin (Nitroglycerin Oint 2% 1 Inch Packet) 1 inch TOP X1 ONE Stop: 01/09/25 23:16 Last Admin: 01/09/25 23:42 Dose: Not Given Assessment & Plan Plan Assessment and Plan: Summary: Ms. Viera is a 89-year-old female with significant past medical history of COPD on 2 L home oxygen at night, diabetes mellitus type 2, gastric ulcer, depression, valley fever, chronic vertigo and anemia presented to ED with chief complaint of SOB that has been worsening for past several weeks. Cardiology consulted secondary to CHF exacerbation and moderate to severe aortic stenosis. #Acute hypoxic and hypercapnic respiratory failure secondary to #COPD exacerbation #Acute decompensated heart failure #Congestive heart failure, new onset #Severe symptomatic anemia Patient presented initially with worsening shortness of breath over the past several weeks, tiredness low energy, bilateral lower extremity edema. Patient had SpO2 77 on 3 L nasal cannula, ABG showed pH 7.19, pCO2 98 and hence patient was started on BiPAP. Patient denies any history of heart disease, has never seen a guest services director. Patient was admitted in June 2023 for acute left femoral neck and cardiology was consulted to obtain preop cardiac clearance. Echocardiogram from 2022 showed Echocardiogram 2022: Normal LV size and function. Mild LVH. Estimated EF 55-60% Normal RV size and function. Mild MAC. Trace MR Moderate AV stenosis. Mean PG 26mmHg, Vmax 3.2m/s Mild AI, Trace TR EKG for this visit shows sinus rhythm, heart rate 89. No acute ST-T changes noted. Chest x-ray shows significant bilateral edema. On physical exam patient does have 4+ bilateral lower extremity edema Patient's hemoglobin on presentation 4.4, hematocrit 19.1, further investigation shows severe iron deficiency, iron 11, TIBC 451, iron saturation 2%, unsaturated iron binding 440, ferritin 11. 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 Patient had colonoscopy done per review of records on 03/06/2024, shows no AV malformations, or diffuse area of mildly erythematous mucosa was seen in descending colon, pathology for those showed normal colonic mucosa Patient denies any history of smoking, did have extensive exposure to secondhand smoke. Patient has been on home oxygen for at least 2 years, use albuterol inhaler. Recommendations: -Continue Lasix 40 mg twice daily, cautious diuresis considering patient has moderate to severe aortic stenosis. -Continue BiPAP as needed -Strict intake and output -Goal output for hospitalization 3 to 5 L -Fluid restriction 1500 cc, daily weight -Cardiac low-sodium diet -Follow transthoracic echocardiogram to assess LV/RV function and systolic and diastolic function. -Management of COPD exacerbation per primary team, patient is on DuoNeb every 6 hour LETTUCE TRIMMER, ceftriaxone and azithromycin was given x 1 in ED and is on prednisone 40 mg p.o. 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 -Patient was transfused 3 units PRBC, posttransfusion H&H stable. -Monitor for GI bleed. -Patient has significant iron deficiency, will benefit from iron supplementation. #Aortic stenosis Patient's last echo showed moderate AV stenosis, mean PG 26 mmHg, V-max 3.2 m/s. Patient has a significant systolic aortic murmur Patient's hemoglobin on presentation 4.4, hematocrit 19.1, further investigation shows severe iron deficiency, iron 11, TIBC 451, iron saturation 2%, unsaturated iron binding 440, ferritin 11. 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 Patient had colonoscopy done per review of records on 03/06/2024, shows no AV malformations, or diffuse area of mildly erythematous mucosa was seen in descending colon, pathology for those showed normal colonic mucosa Recommendations: Patient would likely outpatient workup once more stable for possible aortic valve replacement. #Depression -Started on venlafaxine 150 Mg ER daily #Chronic vertigo -Started on meclizine 25 Mg daily #Diabetes mellitus type 2 A1c 5.6, patient's blood glucose on BMP in range of 140-180 Thank you for the consult and allowing to participate in the care of the patient. Cardiology will continue to follow. Case discussed with Attending Dr. Aguilar. Lisa Wilkerson PGY1 Disclaimer: This note was dictated by speech recognition. Minor errors in abstract searcher may be present due to voice recognition software. Attending Provider Attestation/Addendum I have personally seen and examined the patient separately on the above date of service and discussed the plan of care with the resident. I reviewed the resident Dr. Lisa Wilkerson consultation progress note and agree with the resident findings and plan in the note above and have also edited the documentation to reflect my findings and plan. 89-year-old female with a past medical history of moderate aortic stenosis by echo in June 2023, diastolic congestive heart failure, COPD on 2 L oxygen at night, diabetes mellitus type 2, essential hypertension, history of gastric ulcer, GI bleed, chronic anemia, valley fever, chronic vertigo presented to the emergency department for further evaluation of shortness of breath that was worsening over the last few weeks. Patient apparently has been having increased weakness, shortness of breath over the last few weeks in the also noted bilateral lower extremity swelling with easy fatigability and some dizziness. Patient denies Chest pain chest pressure or palpitations or PND. Does have some orthopnea. Patient does not know for history of moderate aortic stenosis was diastolic congestive heart failure and does not follow-up with any guest services director. Patient does have a history of COPD and is on 2 L of oxygen via nasal cannula. At home patient is ADL independent but IADL dependent. On presentation to the emergency department patient was hypoxic and saturating 77% on 3 L nasal cannula and blood pressure was also low at 95/49 mmHg heart rate of 68 and respiratory rate of 24 labs showed hemoglobin of 4.4 and hematocrit of 19 MCV of 73 and INR, PTT normal, sodium 145, potassium 3.8 bicarb 36, LDL 24, HDL 34 total cholesterol 77. TSH normal A1c 5.6%, kidney function with BUN and creatinine normal at 0.8. B12 folate normal, UA positive stool occult negative. Chest x-ray vascular congestion with moderate CHF as well as bilateral pleural effusions and some pulmonary edema. EKG showed normal sinus rhythm with right bundle branch block as well as nonspecific ST-T changes. Patient was placed on BiPAP and was given IV Lasix 80 mg in the emergency department along with IV antibiotics ceftriaxone and Zithromax. Total of 3 units of PRBC was given. Cardiology was consulted for CHF. Assessment and plan: 1. Acute hypoxic and hypercapnic respiratory failure secondary to CHF exacerbation and possible COPD exacerbation 2. Acute on chronic diastolic congestive heart failure versus systolic heart failure 3. Severe anemia with hemoglobin of 4.4 4. COPD exacerbation acute on chronic 5. Moderate aortic stenosis in 2022 6. Iron deficiency anemia 7. COPD on 2 L oxygen at night 8. Diabetes mellitus type 2 9. Essential hypertension 10. History of gastric ulcer or GI bleed previously 11. Valley fever 12. Chronic vertigo Patient presented with acute hypoxic and hypercapnic respiratory failure. Initial pH was 7.19 and pCO2 was 98 mmHg pO2 was only 63 mmHg and saturations were 88% on the ABG. Acute hypoxic and hypercarbic respiratory failure mostly secondary to acute COPD exacerbation as well as acute on chronic exacerbation mostly diastolic and need to rule out systolic heart failure. Recommend to continue on Lasix 40 mg IV twice daily for diuresis. Strict input output Daily weights and 2 g odium diet. Fluid restriction of 1.5 L. Recommended -1 to 2 L/day. [place] potassium greater than 4 magnesium greater than 2.0 at all times. Regarding the COPD exacerbation patient should be IV or p.o. steroids and continue with BiPAP for now during the entire day and eventually patient should be on BiPAP every night. Serial ABGs to follow the pCO2 and pO2. Patient should be on inhalers both short acting and long-acting. Continue ceftriaxone and Zithromax. Patient was found to have severe anemia with hemoglobin of 4.4 and was transferred to 3 unit PRBC. Recommend to complete complete anemia workup. Iron panel/show patient has a severe iron discharge anemia and given IV iron daily for total of 5 days. Recommend to consult GI to rule out other GI bleed as she has a history of gastric ulcer with GI bleed previously. Stool occult was negative at the. B12 and folate was also normal. Will need to rule out Heyde syndrome given the history of aortic stenosis. Recommend to keep hemoglobin between 9-10. Severe systolic murmur noted in the aortic area and patient has history of moderate aortic stenosis with V-max of 3.2 m/s in June 2023 and mean PG was 26 mmHg. Patient mostly has severe aortic stenosis now noted on examination and her presentation. Patient will need complete workup for aortic valve replacement with SAVR versus TAVR. Patient mostly is a candidate for TAVR given her advanced age and probable increased mortality with SAVR. Continue the workup for the aortic stenosis as outpatient and echocardiogram ordered right now to evaluate for the severe . UTI treatment as per primary team Management of rest of the medical conditions as per primary team and other consultants. Thank you for the consult and allowing me to participate in the care of the patient. Cardiology will continue to follow. Wenceslao Aguilar M.D. Interventional Cardiology
[2025-01-10] MEDS: FUROSEMIDE INJ 10 MG/ML 4ML VIAL 40 MG IVP ×2 (10:39→20:53)
[2025-01-10] MEDS: MECLIZINE HCL 25 MG TABLET PO (10:40)
[2025-01-10] MEDS: VENLAFAXINE XR 37.5 MG CAPCR 150 MG PO (10:40)
--- NOTE | 2025-01-10 11:41 | ESPR_ITS ---
Documentation for date of: 01/10/25 Subjective Subjective Interval history: Patient was seen and examined telemetry this morning. She was on the BiPAP saturating well at 40% FiO2. She was actively using the TV remote to find a new sternal and otherwise had no complaints. She seemed comfortable on BiPAP. There is large bilateral lower extremity pitting edema on physical examination. A systolic murmur was heard on auscultation and cardiology was consulted for history of aortic valve stenosis. Exam Vital Signs Temp Pulse Resp BP Pulse Ox O2 Del Method O2 Flow Rate 97.0 F 75 20 141/68 H 98 BiPAP 35 01/10/25 07:51 01/10/25 11:00 01/10/25 11:00 01/10/25 10:39 01/10/25 11:00 01/10/25 07:51 01/10/25 07:12 FiO2 40 01/10/25 11:00 Narrative Exam Constitutional: Elderly female somewhat short of breath on a BiPAP machine CVS: RRR, S1 and S2 present, no murmurs, rubs or gallops . RESP: CTAB, no SOB, no rales. There is bilateral rhonchi with some wheezing GI: Normal BS, Nontender/Nondistended. MSK: Full range of motion, No trauma or deformities or masses. Skin: There is mild diffused erythema in the bilateral lower extremities with 4+ pitting edema bilaterally. Neuro: incident handler II-XII grossly intact. Sensation grossly intact. Psych: (AAO) x3 . Appropriate mood and affect. Objective Labs 01/11/25 04:34 01/11/25 04:34 Labs: Laboratory Results - last 24 hr 01/09/25 01/09/25 01/09/25 04:42 16:00 23:10 WBC 7.4 RBC 2.79 L Hgb 4.7 L* Hct 20.1 L* MCV 72 L MCH 16.8 L MCHC 23.4 L RDW Std Deviation 51.8 H Plt Count 198 D Neut % (Auto) 80 Lymph % (Auto) 11 [place] % (Auto) 8 Eos % (Auto) 0 Baso % (Auto) 0 Neut # (Auto) 5.9 Lymph # (Auto) 0.8 L [place] # (Auto) 0.6 Eos # (Auto) 0.0 Baso # (Auto) 0.0 Immature Gran # (Auto) 0.06 H Absolute Nucleated RBC 0.04 H Immature Gran % 1 H Nucleated RBC % 1 H PT 13.0 H INR 1.2 APTT 20.3 L Puncture Site Left Radial ABG pH 7.19 L* ABG pCO2 98 H* ABG pO2 63 L ABG HCO3 37 H ABG O2 Saturation 88 L ABG Base Excess 7 H FiO2 36 Sodium 145 Potassium 3.8 D Chloride 100 Carbon Dioxide 35.7 H Anion Gap 9 BUN 11 Creatinine 0.8 Estim Creat Clear Calc Not Performed. eGFR > 60 BUN/Creatinine Ratio [address] Glu mg/dL Hemoglobin A1c Calculated Osmolality 290 Lactic Acid 1.1 Calcium 8.5 Corrected Calcium 8.7 Magnesium Iron TIBC Iron Saturation Unsat Iron Binding Ferritin Total Bilirubin 0.7 AST 15 ALT < 7 L Alkaline Phosphatase 74 Lactate Dehydrogenase Total Protein 6.7 Albumin 3.7 Globulin 3.0 Albumin/Globulin Ratio 1.2 Triglycerides Cholesterol LDL Cholesterol, Calc HDL Cholesterol Cholesterol/HDL Ratio Procalcitonin 0.09 TSH Ur Collection Type Urine Color Urine Clarity Urine pH Ur Specific [place] Urine Protein Urine Glucose (UA) Urine Ketones Urine Blood Urine Nitrite Urine Bilirubin Urine Urobilinogen (Auto) Ur Leukocyte Esterase Urine RBC Urine WBC Ur Squamous Epith Cells Urine Bacteria Hyaline Casts Blood Type O Positive Antibody Screen NEGATIVE Crossmatch See Detail Blood Bank Wristband ID Yes 01/10/25 01/10/25 01/10/25 00:53 01:05 04:42 WBC 8.2 RBC 4.24 Hgb 9.1 L D Hct 32.2 L D MCV 76 L MCH 21.5 L MCHC 28.3 L RDW Std Deviation 54.5 H Plt Count 125 L D Neut % (Auto) 82 H Lymph % (Auto) 6 L [place] % (Auto) 11 Eos % (Auto) 0 Baso % (Auto) 0 Neut # (Auto) 6.7 Lymph # (Auto) 0.5 L [place] # (Auto) 0.9 H Eos # (Auto) 0.0 Baso # (Auto) 0.0 Immature Gran # (Auto) 0.10 H Absolute Nucleated RBC 0.06 H Immature Gran % 1 H Nucleated RBC % 1 H PT INR APTT Puncture Site Right Radial ABG pH 7.29 L D ABG pCO2 83 H* D ABG pO2 70 L ABG HCO3 40 H ABG O2 Saturation 94 ABG Base Excess 11 H FiO2 35 Sodium 144 Potassium 3.4 Chloride 97 L Carbon Dioxide > 40.0 H Anion Gap 7 BUN 12 Creatinine 0.8 Estim Creat Clear Calc 41.0 L eGFR > 60 BUN/Creatinine Ratio [address]ucose [address] Glu mg/dL 114 Hemoglobin A1c 5.6 Calculated Osmolality 289 Lactic Acid Calcium 8.5 Corrected Calcium 8.6 Magnesium 1.9 Iron 11 L TIBC 451 H Iron Saturation 2 L Unsat Iron Binding 440 H Ferritin 11 Total Bilirubin 0.7 AST 14 ALT < 7 L Alkaline Phosphatase 78 Lactate Dehydrogenase 176 Total Protein 6.9 Albumin 3.9 Globulin 3.0 Albumin/Globulin Ratio 1.3 Triglycerides 94 Cholesterol 77 L LDL Cholesterol, Calc 24 HDL Cholesterol 34 L Cholesterol/HDL Ratio 2.3 L Procalcitonin TSH 0.72 Ur Collection Type Clean Catch Urine Color Colorless A Urine Clarity Clear Urine pH 5.0 Ur Specific [place] 1.006 Urine Protein Negative Urine Glucose (UA) Negative Urine Ketones Negative Urine Blood Negative Urine Nitrite Negative Urine Bilirubin Negative Urine Urobilinogen (Auto) Negative Ur Leukocyte Esterase Negative Urine RBC 1 Urine WBC 1 Ur Squamous Epith Cells 0 Urine Bacteria 2+ A Hyaline Casts < 1 Blood Type Antibody Screen Crossmatch Blood Bank Wristband ID ABG Interpretation ABG results: 01/09/25 01/10/25 23:10 01:05 ABG pH 7.19 L* 7.29 L D ABG pCO2 98 H* 83 H* D ABG pO2 63 L 70 L ABG HCO3 37 H 40 H ABG O2 Saturation 88 L 94 ABG Base Excess 7 H 11 H Quality Measures Quality Measures VTE prophylaxis Advance care planning discussed with:: patient Assessment & Plan Assessment Current Active Medications: Generic Name Dose Route Start Last Admin Trade Name Freq PRN Reason Stop Dose Admin Acetaminophen 650 mg 01/10/25 01:50 Acetaminophen 325 Mg Tablet PO 02/09/25 01:49 Q6H PRN PAIN SCALE 1-3 (mild Acetaminophen 650 mg 01/10/25 06:05 Acetaminophen 325 Mg Tablet PO 02/09/25 01:49 Q6H PRN Fever >100.4 Albuterol/Ipratropium 3 ml 01/10/25 07:00 01/10/25 07:04 Albuterol/Ipratropium (Duoneb) Rt Shanelle 3 Ml Nebu INH 02/09/25 06:59 3 ml Q6HRRT BRYNN Administration Furosemide 40 mg 01/10/25 09:00 01/10/25 10:39 Furosemide Inj 10 Mg/Ml 4ml Vial IVP 02/09/25 08:59 40 mg BID BRYNN Administration Azithromycin 500 mg/ Sodium 250 mls @ 250 mls/hr 01/10/25 21:00 Chloride IV 01/17/25 20:59 HS BRYNN Meclizine HCl 25 mg 01/10/25 09:00 01/10/25 10:40 Meclizine Hcl 25 Mg Tablet PO 02/09/25 08:59 25 mg QDAY BRYNN Administration Prednisone 40 mg 01/10/25 11:15 Prednisone 20 Mg Tablet PO 02/09/25 11:14 QDAY BRYNN Venlafaxine HCl 150 mg 01/10/25 09:00 01/10/25 10:40 Venlafaxine Xr 37.5 Mg Capcr PO 02/09/25 08:59 150 mg QDAY BRYNN Administration Plan The patient is an 89-year-old female with significant past medical history of COPD on 2 L home oxygen at night, diabetes mellitus type 2, gastric ulcer, depression, valley fever, chronic vertigo with on and off anemia presented to ED with chief complaint of SOB that has been worsening for past several weeks She was admitted to telemetry unit for further management of acute hypoxic hypercapnic respiratory failure 2/2 COPD exacerbation and severe symptomatic anemia. #Acute hypoxic hypercapnic respiratory failure #Pulmonary edema #Possible CHF exacerbation #COPD exacerbation The patient complained of SOB that has been worsening for past several weeks, reported having low energy, bilateral lower limb edema, easy fatigability and weakness. Physical examination was significant for bilateral lower limb pitting edema extending up to mid thigh. Chest x-ray was significant for moderate CHF later was found to have pulmonary edema. ABG revealed pH 7.19 and PCO2 98. Received Lasix 80 Mg IV x 1 in the ED, ceftriaxone 1 g x 1, nitroglycerin drip -Started on IV Lasix 40 Mg twice daily -Patient has been on the BiPAP and clinically is improving -Strict ins and outs -Duonebs Q6H ?Prednisone 40 mg IV twice daily -Limit fluid and salt intake when started on diet -azithromycin 500 Mg IV daily in the setting of possible COPD exacerbation ?DC'd ceftriaxone at this time as we are less suspicious for superimposed pneumonia -TTE ordered #Moderate aortic stenosis Physical examination reveals a 4 out of 6 systolic murmur best heard in the left parasternal chest wall Previous echocardiogram was done in June 2023 which revealed an EF of 55 to 60% with moderate AV stenosis with a mean pressure of 26 mmHg and a V-max of 3.2 m/s Likely playing a component in patient's shortness of breath as well as anemia Plan: ? Echocardiogram ? Cardiology consulted #Severe symptomatic microcytic anemia Likely secondary to mechanical destruction due to severe aortic stenosis Patient denied any dark bowel movement, or bloody on her stool, occult blood test was negative making GI blood loss less likely Physical examination was significant for severe crescendo-decrescendo midsystolic murmur at right second intercostal space Hemoglobin during presentation was 4.4, hematocrit 19.1, MCV 73, RDW 52.1 -Transfused 3 units of PRBC -Pending posttransfusion H&H -TTE ordered, may consider consulting cardiology -Iron panel, reticulocyte count, peripheral blood smear, ferritin level ordered -Continue to monitor H&H, and transfuse PRBC if hemoglobin less than 7 #Depression -Started on venlafaxine 150 Mg ER daily -Resume home medications after reconciliation #Chronic vertigo -Started on meclizine 25 Mg daily #Diabetes mellitus type 2 A1c ordered -Monitor BMP in the a.m. Health maintenance: Dispo: Patient admitted to telemetry unit for further management of acute hypoxic hypercapnic respiratory failures and severe symptomatic microcytic anemia Diet: Cardiac diet with fluid restriction of 1500 cc DVT prophylaxis: SCDs CODE STATUS: DNR, okay to intubate if needed I discussed patient's care with attending physician, Dr Tabitha Grimm PGY3 Attending Provider Attestation/Addendum I reviewed labs, imaging, EKG, home medications and prior available records. Face to face evaluation was performed by me. I have personally examined the patient and discussed assessment and plan with the IM team. I reviewed the resident note and agree with the plan with exceptions as below. Acute respiratory failure with hypoxia Acute respiratory failure with hypercarbia Acute on chronic anemia Thrombocytopenia CHF exacerbation COPD exacerbation ABG showed improvement in the hypercarbia Continue BiPAP Started IV diuresis Started DuoNebs. Started p.o. prednisone 3 PRBC transfused. H&H improved appropriately posttransfusion. Monitor H&H Monitor platelet level. Monitor for bleed
[2025-01-10] MEDS: predniSONE 20 MG TABLET 40 MG PO (12:59)
[2025-01-11] VITALS (12 sets, daily range): BP systolic 119–146; BP diastolic 58–70; PULSE 73–89; RESP 16–25; TEMP 36.2–36.9; O2SAT 92–99
[2025-01-11] MEDS: ALBUTEROL/IPRATROPIUM (Duoneb) RT SOL 3 ML NEBU INH ×4 (00:40→19:05)
--- NOTE | 2025-01-11 00:45 | PC.NURSE ---
MADE DR. WARNER AND EBONY AWARE REGARDING PT ATTEMPTING TO REMOVE BIPAP EVEN WITH AVASURE. PT REQUIRES MULTIPLE ATTEMPTS AT REORIENTATION. CONCERNED REGARDING POSSIBLE INCREASE IN CO2 LEVELS. LAST ABG DRAWN AT 01/[address] BECK STATES HE WILL RELAY THE NEED FOR ABG TO DAY TEAM.
--- NOTE | 2025-01-11 03:15 | PC.NURSE ---
MADE AWARE THAT PT IS ATTEMPTING TO REMOVE BIPAP. DID APPROVE ORDER FOR BILATERAL MITTENS. ELEANOR SOLIS MADE AWARE. WILL NEED A SITTER IN ORDER TO REINFORCE BILATERAL MITTENS.
[2025-01-11 05:51] LABS: Basophils % (Auto) 0 % (0-2.5); Eosinophils % (Auto) 0 % (0-10); Immature Granulocytes % (Auto) 1 % (0-0); Immature Granulocytes Auto 0.04 Thou/mm3 (0.00-0.00); Immature Reticulocyte Fraction 24.8 % (3.0-15.9); Lymphocytes # (Auto) 0.7 Thou/mm3 (1.0-4.8); Lymphocytes % (Auto) 12 % (10-50); Mean Corpuscular HGB Conc 28.9 g/dl (31.0-37.0); Mean Corpuscular Hemoglobin 21.8 pg (25.0-35.0); Mean Corpuscular Volume 76 fL (80-100); Monocytes # (Auto) 0.7 Thou/mm3 (0.0-0.8); Monocytes % (Auto) 12 % (0-12); Neutrophils # (Auto) 4.2 Thou/mm3 (1.8-7.7); Neutrophils % (Auto) 75 % (37-80); Nucleated Red Blood Cell # 0.04 Thou/mm3 (0.00-0.00); Nucleated Red Blood Cell % 1 /100 WBC (0); Platelet Count 134 Thou/mm3 (140-440); RDW Standard Deviation 63.1 fL (36.4-46.3); Red Blood Count 3.71 Miln/mm3 (4.00-5.20); Reticulocyte % (Auto) 3.2 % (0.5-1.5); Reticulocyte Absolute Auto 119.1 Biln/L (25.0-75.0); Reticulocyte Hgb Content 18.7 pg (28.0-35.0); White Blood Count 5.7 Thou/mm3 (3.6-11.0)
[2025-01-11 05:54] LABS: Hemoglobin 8.1 g/dL (12.0-16.0)
[2025-01-11 06:31] LABS: Alanine Aminotransferase < 7 U/L (10-49); Albumin, Serum 3.3 gm/dL (3.4-4.8); Albumin/Globulin Ratio 1.3 (1.2-2.2); Alkaline Phosphatase 63 U/L (46-116); Anion Gap 15 (7-16); Aspartate Amino Transferase 17 U/L (0-34); BUN/Creatinine Ratio 16 Ratio (12-20); Bilirubin,Total 0.7 mg/dL (0.3-1.2); Blood Urea Nitrogen 13 mg/dL (9-23); Calcium (Corrected) 8.6 mg/dL (8.5-10.1); Carbon Dioxide > 40.0 mMol/L (20.0-31.0); Chloride 90 mMol/L (98-107); Creatinine (Component) 0.8 mg/dL (0.6-1.3); Globulin 2.6 gm/dL (2.3-3.5); Glucose 117 mg/dL (74-106); Magnesium 1.6 mg/dL (1.6-2.6); Osmolality,Calculated 289 (275-295); Phosphorous 2.8 mg/dL (2.4-5.1); Potassium 2.8 mMol/L (3.4-5.1); Sodium 145 mMol/L (136-145); Total Protein 5.9 gm/dL (5.7-8.2); eGFR > 60 See Note
--- NOTE | 2025-01-11 06:42 | PC.NURSE ---
DR. BECK MADE AWARE OF K 2.8 THIS MORNING. STATES HE WILL TAKE A LOOK AT IT . NO ORDERS GIVEN. SR ON MONITOR. NO SIGNS OF ECTOPY
[2025-01-11 07:31] LABS: Path Review Blood Smear Sent to Pathologist
[2025-01-11] MEDS: FUROSEMIDE INJ 10 MG/ML 4ML VIAL 40 MG IVP (08:45)
[2025-01-11] MEDS: MECLIZINE HCL 25 MG TABLET PO (08:46)
[2025-01-11] MEDS: POTASSIUM CHLORIDE 20 mEq TABCR 40 MEQ PO (08:46)
[2025-01-11] MEDS: VENLAFAXINE XR 37.5 MG CAPCR 150 MG PO (08:46)
[2025-01-11] MEDS: predniSONE 20 MG TABLET 40 MG PO (08:46)
[2025-01-11] MEDS: POTASSIUM CHL 10 mEq IVPB 10 MEQ/100 ML BAG 75 MEQ IV ×6 (08:47→20:55)
[2025-01-11] MEDS: Magnesium Sulfate 4 GM Ivpb 4 GM/50 ML BAG IV (08:47)
--- NOTE | 2025-01-11 09:37 | ESPR_ITS ---
Documentation for date of: 01/11/25 Subjective Subjective Interval history: Patient seen and examined at bedside. Over the last 24 hours patient had urine output 6.2 L, net -5.6 L, patient has elevated venous CO2 and CMP today, underlying metabolic alkalosis, has contraction metabolic alkalosis. Will give Diamox BID today, will change Lasix to 40mg Qday Potassium 2.8, potassium replaced by primary team Renal function stable. Otherwise patient edema has improved, still has significant edema bilateral lower extremities, dependent parts, bilateral crackles appreciated. Patient started on IV Iron by primary team, replace IV Iron for 3-5 days due to severe symptomastic anemia has iron deficiency component. 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 Pending echocardiogram. Exam Vital Signs Temp Pulse Resp BP Pulse Ox O2 Del Method O2 Flow Rate 98.4 F 76 19 146/58 H 94 L BiPAP 35 01/11/25 08:00 01/11/25 08:45 01/11/25 08:00 01/11/25 08:45 01/11/25 08:00 01/11/25 08:00 01/11/25 08:00 FiO2 35 01/11/25 08:00 Narrative Exam Constitutional: Elderly female comfortable on BiPAP machine HEENT: Normocephalic, atraumatic, mucous membranes moist. CVS: RRR, S1 and S2 present, + systolic murmur aortic area, no rubs or gallops . RESP: CTAB, no SOB, no rales. There is bilateral rhonchi with some wheezing GI: Normal BS, Nontender/Nondistended. MSK: Full range of motion, No trauma or deformities or masses. Skin: Improved erythema, bilateral lower extremities with 4+ pitting edema bilaterally, significant edema noted on dependent body parts. Neuro: AAOx3. retail parts professional II-XII grossly intact. Sensation grossly intact. Psych: Appropriate mood and affect. Objective Labs 01/11/25 04:34 01/11/25 13:29 Labs: Laboratory Results - last 24 hr 01/11/25 04:34 WBC 5.7 RBC 3.71 L Hgb 8.1 L Hct 28.0 L MCV 76 L MCH 21.8 L MCHC 28.9 L RDW Std Deviation 63.1 H Plt Count 134 L Neut % (Auto) 75 Lymph % (Auto) 12 [place] % (Auto) 12 Eos % (Auto) 0 Baso % (Auto) 0 Neut # (Auto) 4.2 Lymph # (Auto) 0.7 L [place] # (Auto) 0.7 Eos # (Auto) 0.0 Baso # (Auto) 0.0 Immature Gran # (Auto) 0.04 H Absolute Nucleated RBC 0.04 H Immature Gran % 1 H Nucleated RBC % 1 H Smear Path Review Sent to Pathologist Retic Count (auto) 3.2 H Absolute Retic 119.1 H Immature Retic Fraction 24.8 H Retic Hgb Content CHr 18.7 L Sodium 145 Potassium 2.8 L D Chloride 90 L Carbon Dioxide > 40.0 H Anion Gap 15 BUN 13 Creatinine 0.8 Estim Creat Clear Calc 41.0 L eGFR > 60 BUN/Creatinine Ratio 16 Glucose 117 H Calculated Osmolality 289 Calcium 8.0 L Corrected Calcium 8.6 Phosphorus 2.8 Magnesium 1.6 Total Bilirubin 0.7 AST 17 ALT < 7 L Alkaline Phosphatase 63 Total Protein 5.9 Albumin 3.3 L D Globulin 2.6 Albumin/Globulin Ratio 1.3 ABG Interpretation ABG results: 01/09/25 01/10/25 23:10 01:05 ABG pH 7.19 L* 7.29 L D ABG pCO2 98 H* 83 H* D ABG pO2 63 L 70 L ABG HCO3 37 H 40 H ABG O2 Saturation 88 L 94 ABG Base Excess 7 H 11 H Quality Measures Quality Measures none Advance care planning discussed with:: patient Assessment & Plan Assessment Current Active Medications: Generic Name Dose Route Start Last Admin Trade Name Freq PRN Reason Stop Dose Admin Acetaminophen 650 mg 01/10/25 01:50 Acetaminophen 325 Mg Tablet PO 02/09/25 01:49 Q6H PRN PAIN SCALE 1-3 (mild Acetaminophen 650 mg 01/10/25 06:05 Acetaminophen 325 Mg Tablet PO 02/09/25 01:49 Q6H PRN Fever >100.4 Albuterol/Ipratropium 3 ml 01/10/25 07:00 01/11/25 06:51 Albuterol/Ipratropium (Duoneb) Rt Shanelle 3 Ml Nebu INH 02/09/25 06:59 3 ml Q6HRRT BRYNN Administration Furosemide 40 mg 01/10/25 09:00 01/11/25 08:45 Furosemide Inj 10 Mg/Ml 4ml Vial IVP 02/09/25 08:59 40 mg BID BRYNN Administration Azithromycin 500 mg/ Sodium 250 mls @ 250 mls/hr 01/10/25 21:00 01/10/25 20:54 Chloride IV 01/17/25 20:59 250 mls/hr HS BRYNN Administration Potassium Chloride 10 meq in 100 mls @ 100 mls/hr 01/11/25 06:40 01/11/25 08:47 Kcl Ivpb IV 01/11/25 10:39 75 mls/hr Q1H BRYNN Administration Magnesium Sulfate 4 gm in 50 mls @ 12.5 mls/hr 01/11/25 08:11 01/11/25 08:47 Magnesium Sulfate Ivpb IV 01/11/25 12:10 12.5 mls/hr X1 ONE Administration Meclizine HCl 25 mg 01/10/25 09:00 01/11/25 08:46 Meclizine Hcl 25 Mg Tablet PO 02/09/25 08:59 25 mg QDAY BRYNN Administration Prednisone 40 mg 01/10/25 11:15 01/11/25 08:46 Prednisone 20 Mg Tablet PO 02/09/25 11:14 40 mg QDAY BRYNN Administration Venlafaxine HCl 150 mg 01/10/25 09:00 01/11/25 08:46 Venlafaxine Xr 37.5 Mg Capcr PO 02/09/25 08:59 150 mg QDAY BRYNN Administration Plan Assessment and Plan: Summary: Ms. Virea is a 89-year-old female with significant past medical history of COPD on 2 L home oxygen at night, diabetes mellitus type 2, gastric ulcer, depression, valley fever, chronic vertigo and anemia presented to ED with chief complaint of SOB that has been worsening for past several weeks. Cardiology consulted secondary to CHF exacerbation and moderate to severe aortic stenosis. #Acute hypoxic and hypercapnic respiratory failure secondary to #COPD exacerbation #Acute decompensated heart failure #Congestive heart failure, new onset #Severe symptomatic anemia Patient presented initially with worsening shortness of breath over the past several weeks, tiredness low energy, bilateral lower extremity edema. Patient had SpO2 77 on 3 L nasal cannula, ABG showed pH 7.19, pCO2 98 and hence patient was started on BiPAP. Patient denies any history of heart disease, has never seen a kitchen manager. Patient was admitted in June 2023 for acute left femoral neck and cardiology was consulted to obtain preop cardiac clearance. Echocardiogram from 2022 showed Echocardiogram 2022: Normal LV size and function. Mild LVH. Estimated EF 55-60% Normal RV size and function. Mild MAC. Trace MR Moderate AV stenosis. Mean PG 26mmHg, Vmax 3.2m/s Mild AI, Trace TR EKG for this visit shows sinus rhythm, heart rate 89. No acute ST-T changes noted. Chest x-ray shows significant bilateral edema. On physical exam patient does have 4+ bilateral lower extremity edema Patient's hemoglobin on presentation 4.4, hematocrit 19.1, further investigation shows severe iron deficiency, iron 11, TIBC 451, iron saturation 2%, unsaturated iron binding 440, ferritin 11. 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 Patient had colonoscopy done per review of records on 03/06/2024, shows no AV malformations, or diffuse area of mildly erythematous mucosa was seen in descending colon, pathology for those showed normal colonic mucosa Patient denies any history of smoking, did have extensive exposure to secondhand smoke. Patient has been on home oxygen for at least 2 years, use albuterol inhaler. 01/11-Over the last 24 hours patient had urine output 6.2 L, net -5.6 L Recommendations: -Change Lassix to 40mg qday, cautious diuresis considering patient has moderate to severe aortic stenosis. -Given Diamox 500 mg x2 today -Continue IV Iron Sucrose, replace IV Iron for 3-5 days due to severe symptomastic anemia has iron deficiency component. 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 -Continue BiPAP as needed -Strict intake and output -Fluid restriction 1500 cc, daily weight -Cardiac low-sodium diet -Follow transthoracic echocardiogram to assess LV/RV function and systolic and diastolic function. -Management of COPD exacerbation per primary team, patient is on DuoNeb every 6 hour PARTS CLEANER, ceftriaxone and azithromycin was given x 1 in ED and is on prednisone 40 mg p.o. 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 -Patient was transfused 3 units PRBC, posttransfusion H&H stable. -Monitor for GI bleed, bleeding precautions. -Patient has significant iron deficiency, will benefit from iron supplementation. #Aortic stenosis Patient's last echo showed moderate AV stenosis, mean PG 26 mmHg, V-max 3.2 m/s. Patient has a significant systolic aortic murmur Patient's hemoglobin on presentation 4.4, hematocrit 19.1, further investigation shows severe iron deficiency, iron 11, TIBC 451, iron saturation 2%, unsaturated iron binding 440, ferritin 11. 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 -Patient would likely outpatient workup once more stable for possible aortic valve replacement. #Electrolyte abnormalities #Hypokalemia Correct and replace electrolytes as needed, aggressively replace potassium and magnesium Keep potassium more than 4 and magnesium more than 2 # Metabolic alkalosis Patient likely has contraction alkalosis due to diuresis with IV Lasix, patient is still fluid overloaded. Was given Diamox 500 mg IV x 1. #Depression -Started on venlafaxine 150 Mg ER daily #Chronic vertigo -Started on meclizine 25 Mg daily #Diabetes mellitus type 2 A1c 5.6, patient's blood glucose on BMP in range of 140-180 Thank you for the consult and allowing to participate in the care of the patient. Cardiology will continue to follow. Case discussed with Attending Dr. Aguilar. Lisa Wilkerson PGY1 Disclaimer: This note was dictated by speech recognition. Minor errors in smooth stucco resurfacer may be present due to voice recognition software. Attending Provider Attestation/Addendum I reviewed the resident Dr. Lisa Wilkerson consultation progress note and agree with the resident findings and plan in the note above and have also edited the documentation to reflect my findings and plan. Wenceslao Aguilar M.D. Interventional Cardiology
[2025-01-11 10:00] LABS: Allen Test Performed/OK; Base Excess 26 (-3-3); HCO3 53 mEq/L (20-26); Inspired Oxygen, FIO2 35 %; O2 Saturation 93 % (91-98); PCO2 68 mmHg (32.0-48.0); PO2 61 mmHg (83-108); Puncture Site Right Radial
[2025-01-11] MEDS: ACETAzolaMIDE SOD 500 MG in SODIUM CHLORIDE 0.9% (Popper) 50 ML 100 MG IV ×2 (11:01→21:42)
[2025-01-11] MEDS: POTASSIUM CHL 10 mEq IVPB 10 MEQ/100 ML BAG 100 MEQ IV ×2 (13:47→15:35)
[2025-01-11 14:09] LABS: Albumin, Serum 3.6 gm/dL (3.4-4.8); Anion Gap 13 (7-16); BUN/Creatinine Ratio 15 Ratio (12-20); Blood Urea Nitrogen 16 mg/dL (9-23); Calcium 8.1 mg/dL (8.3-10.6); Calcium (Corrected) 8.4 mg/dL (8.5-10.1); Carbon Dioxide > 40.0 mMol/L (20.0-31.0); Chloride 88 mMol/L (98-107); Creatinine (Component) 1.1 mg/dL (0.6-1.3); Estimated Creatinine Clearance 29.8 mL/min (>60); Glucose 221 mg/dL (74-106); Osmolality,Calculated 289 (275-295); Phosphorous 2.8 mg/dL (2.4-5.1); Potassium 3.6 mMol/L (3.4-5.1); Sodium 141 mMol/L (136-145); eGFR 49 See Note
--- NOTE | 2025-01-11 14:26 | ESPR_ITS ---
Documentation for date of: 01/11/25 Subjective Subjective Interval history: No acute events overnight.?Patient seen and examined at bedside this AM, awake and on BiPAP. Patient reports some improvement in breathing. Wheezing is significantly improved. Lower extremity edema is significantly reduced, but still with 3+ pitting. Patient has diuresed over 6L in the last 24 hours. Lasix dose adjusted from 40 mg IV BID to 40 mg IV qday. Labs were showing some contraction alkalosis with CO2>40.0, ABG with pH 7.50, pCO2 68, pO2 61, HCO3 53. Potassium 2.8. Patient was given dose of acetazolamine 500 mg IV and another dose of 500 mg IV is scheduled for the evening. Potassium repleted with 40 mEq PO and 40 mEq IV. Renal panel was repeated in the afternoon showing potassium 3.6 thus another 40 mEq IV was scheduled. No further complaints at this time. Awaiting echo to be taken. Iron infusion ordered as recommended by Cardio. Review of systems otherwise negative except what is mentioned above. Exam Vital Signs Temp Pulse Resp BP Pulse Ox O2 Del Method O2 Flow Rate 97.2 F 84 25 H 132/65 H 95 BiPAP 35 01/11/25 12:00 01/11/25 13:31 01/11/25 13:31 01/11/25 12:00 01/11/25 13:31 01/11/25 12:00 01/11/25 12:00 FiO2 35 01/11/25 13:31 Narrative Exam Constitutional: Elderly female somewhat short of breath on a BiPAP machine CVS: RRR, S1 and S2 present, 4/6 systolic ejection murmur heard best at the right upper sternal border, no rubs or gallops. RESP: CTAB, no SOB, no rales. Mild bilateral crackles at the lower bases. GI: Normal BS, Nontender/Nondistended. MSK: Full range of motion, No trauma or deformities or masses. Skin: There is mild diffused erythema in the bilateral lower extremities with 3+ pitting edema bilaterally. 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 Sensation grossly intact. Psych: (AAO) x3 . Appropriate mood and affect. Objective Labs 01/12/25 05:57 01/12/25 05:57 Labs: Laboratory Results - last 24 hr 01/11/25 01/11/25 01/11/25 04:34 09:54 13:29 WBC 5.7 RBC 3.71 L Hgb 8.1 L Hct 28.0 L MCV 76 L MCH 21.8 L MCHC 28.9 L RDW Std Deviation 63.1 H Plt Count 134 L Neut % (Auto) 75 Lymph % (Auto) 12 [place] % (Auto) 12 Eos % (Auto) 0 Baso % (Auto) 0 Neut # (Auto) 4.2 Lymph # (Auto) 0.7 L [place] # (Auto) 0.7 Eos # (Auto) 0.0 Baso # (Auto) 0.0 Immature Gran # (Auto) 0.04 H Absolute Nucleated RBC 0.04 H Immature Gran % 1 H Nucleated RBC % 1 H Smear Path Review Sent to Pathologist Retic Count (auto) 3.2 H Absolute Retic 119.1 H Immature Retic Fraction 24.8 H Retic Hgb Content CHr 18.7 L Puncture Site Right Radial ABG pH 7.50 H D ABG pCO2 68 H D ABG pO2 61 L ABG HCO3 53 H ABG O2 Saturation 93 ABG Base Excess 26 H FiO2 35 Sodium 145 141 Potassium 2.8 L D 3.6 D Chloride 90 L 88 L Carbon Dioxide > 40.0 H > 40.0 H Anion Gap 15 13 BUN 13 16 Creatinine 0.8 1.1 Estim Creat Clear Calc 41.0 L 29.8 L eGFR > 60 49 L BUN/Creatinine Ratio 16 15 Glucose 117 H 221 H D Calculated Osmolality 289 289 Calcium 8.0 L 8.1 L Corrected Calcium 8.6 8.4 L Phosphorus 2.8 2.8 Magnesium 1.6 Total Bilirubin 0.7 AST 17 ALT < 7 L Alkaline Phosphatase 63 Total Protein 5.9 Albumin 3.3 L D 3.6 Globulin 2.6 Albumin/Globulin Ratio 1.3 ABG Interpretation ABG results: 01/09/25 01/10/25 01/11/25 23:10 01:05 09:54 ABG pH 7.19 L* 7.29 L D 7.50 H D ABG pCO2 98 H* 83 H* D 68 H D ABG pO2 63 L 70 L 61 L ABG HCO3 37 H 40 H 53 H ABG O2 Saturation 88 L 94 93 ABG Base Excess 7 H 11 H 26 H Quality Measures Quality Measures none Advance care planning discussed with:: patient Assessment & Plan Assessment Current Active Medications: Generic Name Dose Route Start Last Admin Trade Name Freq PRN Reason Stop Dose Admin Acetaminophen 650 mg 01/10/25 01:50 Acetaminophen 325 Mg Tablet PO 02/09/25 01:49 Q6H PRN PAIN SCALE 1-3 (mild Acetaminophen 650 mg 01/10/25 06:05 Acetaminophen 325 Mg Tablet PO 02/09/25 01:49 Q6H PRN Fever >100.4 Albuterol/Ipratropium 3 ml 01/10/25 07:00 01/11/25 13:30 Albuterol/Ipratropium (Duoneb) Rt Shanelle 3 Ml Nebu INH 02/09/25 06:59 3 ml Q6HRRT BRYNN Administration Furosemide 40 mg 01/12/25 09:00 Furosemide Inj 10 Mg/Ml 4ml Vial IVP 02/11/25 08:59 QDAY BRYNN Azithromycin 500 mg/ Sodium 250 mls @ 250 mls/hr 01/10/25 21:00 01/10/25 20:54 Chloride IV 01/17/25 20:59 250 mls/hr HS BRYNN Administration Acetazolamide Sodium 500 mg/ 50 mls @ 100 mls/hr 01/11/25 21:00 Sodium Chloride IV 01/11/25 21:29 X1 ONE Potassium Chloride 10 meq in 100 mls @ 100 mls/hr 01/11/25 14:00 Kcl Ivpb IV 01/11/25 17:59 Q1H BRYNN Meclizine HCl 25 mg 01/10/25 09:00 01/11/25 08:46 Meclizine Hcl 25 Mg Tablet PO 02/09/25 08:59 25 mg QDAY BRYNN Administration Prednisone 40 mg 01/10/25 11:15 01/11/25 08:46 Prednisone 20 Mg Tablet PO 02/09/25 11:14 40 mg QDAY BRYNN Administration Venlafaxine HCl 150 mg 01/10/25 09:00 01/11/25 08:46 Venlafaxine Xr 37.5 Mg Capcr PO 02/09/25 08:59 150 mg QDAY BRYNN Administration Plan The patient is an 89-year-old female with significant past medical history of COPD on 2L home oxygen at night, diabetes mellitus type 2, gastric ulcer, depression, valley fever, chronic vertigo with on and off anemia presented to ED with chief complaint of SOB that has been worsening for past several weeks She was admitted to telemetry unit for further management of acute hypoxic hypercapnic respiratory failure 2/2 COPD exacerbation and severe symptomatic anemia. #Acute hypoxic and hypercapnic respiratory failure #Pulmonary edema #New onset CHF exacerbation #COPD exacerbation The patient complained of SOB that has been worsening for past several weeks, reported having low energy, bilateral lower limb edema, easy fatigability and weakness. Physical examination was significant for bilateral lower limb pitting edema extending up to mid thigh. Chest x-ray was significant for moderate CHF later was found to have pulmonary edema. Initial ABG revealed pH 7.19 and PCO2 98. Last documented echo in 06/2023 showed EF 55-60% and moderate aortic stenosis. -Reduced IV Lasix 40 Mg twice daily to 40 mg IV qday -Continue BiPAP -Strict ins and outs -Duonebs Q6H scheduled -Continue prednisone 40 mg IV qday -Fluid restriction 1500 ml, low sodium diet -Continue azithromycin 500 Mg IV daily in the setting of COPD exacerbation -TTE pending #Moderate aortic stenosis Physical examination reveals a 4 out of 6 systolic murmur best heard in the right upper sternal border Previous echocardiogram was done in June 2023 which revealed an EF of 55 to 60% with moderate AV stenosis with a mean pressure of 26 mmHg and a V-max of 3.2 m/s Likely playing a component in patient's shortness of breath as well as anemia -TTE pending -Cardiology consulted and following, appreciate recommendations #Severe symptomatic microcytic anemia Likely secondary to mechanical destruction due to severe aortic stenosis Patient denied any dark bowel movement, or bloody on her stool, occult blood test was negative making GI blood loss less likely Physical examination was significant for severe crescendo-decrescendo midsystolic murmur at right second intercostal space Hemoglobin during presentation was 4.4, hematocrit 19.1, MCV 73, RDW 52.1 Iron panel showed low iron of 11, TIBC 451, 2% iron saturation, ferritin 11 Reticulocyte count high at 3.2% s/p 3 units of PRBC -TTE pending -Continue to monitor H&H, and transfuse PRBC if hemoglobin less than 7 -Avoid NSAIDs/ASA/chemical prophylaxis #Depression -Continue venlafaxine 150 mg ER daily -Resume home medications after reconciliation #Chronic vertigo -Continue meclizine 25 mg daily #Diabetes mellitus type 2 A1c 5.6, patient not in diabetic range. AM glucose has ranged 116-221, patient is currently on steroid as well. -No need for subQ insulin at this time -Monitor daily glucose on chem panel Health maintenance: Dispo: Patient admitted to telemetry unit for further management of acute hypoxic hypercapnic respiratory failures and severe symptomatic microcytic anemia Diet: Cardiac diet with fluid restriction of 1500 cc DVT prophylaxis: SCDs CODE STATUS: DNR, okay to intubate if needed Patient plan of care was discussed with the attending physician, Dr. Lu. Mallory Quintanilla, PGY-2 Attending Provider Attestation/Addendum I reviewed labs, imaging, EKG, home medications and prior available records. Face to face evaluation was performed by me. I have personally examined the patient and discussed assessment and plan with the IM team. I reviewed the resident note and agree with the plan with exceptions as below. Acute respiratory failure with hypoxia Acute respiratory failure with hypercarbia Metabolic alkalosis, new complication Acute on chronic anemia Thrombocytopenia CHF exacerbation COPD exacerbation ABG showed improvement in the hypercarbia Continue BiPAP Bicarb increased. Likely contraction alkalosis. Discussed with cardiology: Recommended giving Diamox Continue IV diuresis. Decreased Lasix to 40 mg IV daily Follow-up echocardiogram Replete potassium as needed and monitor BMP Started DuoNebs. Started p.o. prednisone 3 PRBC transfused. H&H improved appropriately posttransfusion. Monitor H&H Monitor platelet level. Monitor for bleed
[2025-01-11] MEDS: IRON SUCROSE CPLX INJ 20 MG/ML VIAL 5 ML 100 MG IVP (15:36)
[2025-01-11] MEDS: ACETAMINOPHEN 325 MG TABLET 650 MG PO (19:55)
[2025-01-11] MEDS: Magnesium Sulfate 2 GM Ivpb 2 GM/50 ML BAG IV (19:56)
[2025-01-11] MEDS: AZITHROMYCIN INJ 500 MG in SODIUM CHLORIDE 0.9% 250 ML 250 ML 250 MG IV (20:09)
[2025-01-12] VITALS (10 sets, daily range): BP systolic 116–136; BP diastolic 62–84; PULSE 70–91; RESP 16–28; TEMP 36–37.1; O2SAT 94–99
[2025-01-12] MEDS: ALBUTEROL/IPRATROPIUM (Duoneb) RT SOL 3 ML NEBU INH ×4 (00:20→18:40)
--- NOTE | 2025-01-12 01:55 | ECHO_ITS ---
Transthoracic Echo Report Ht (in): 63 Wt (lb): 135 Exam Location: Portable Status: Inpatient Food And Nutrition Services Assistant: MAYRA Rico^^^^ Indications: Procedure Performed: BP: / HR: 82 Technical Quality: Technically difficult study MEASUREMENTS (Male / Female) Normal Values 2D ECHO LV Diastolic Diameter PLAX 4.5 cm 4.2 - 5.9 / 3.9 - 5.3 cm LV Systolic Diameter PLAX 3.1 cm IVS Diastolic Thickness 1.0 cm 0.6 - 1.0 / 0.6 - 0.9 cm LVPW Diastolic Thickness 0.8 cm 0.6 - 1.0 / 0.6 - 0.9 cm LV Relative Wall Thickness 0.4 LVOT Diameter 1.6 cm Aortic Root Diameter 3.3 cm LA Systolic Diameter LX 4.2 cm 3.0 - 4.0 / 2.7 - 3.8 cm DOPPLER AV Peak Velocity 392.6 cm/s AV Peak Gradient 61.7 mmHg AV Mean Gradient 42.6 mmHg AV Velocity Time Integral 102.3 cm LVOT Peak Velocity 132.0 cm/s LVOT Peak Gradient 7.0 mmHg LVOT Velocity Time Integral 42.8 cm LVOT Cardiac Index 4254.3 cm?/min?m? AV Area Cont Eq vti 0.8 cm? AV Area Cont Eq pk 0.7 cm? MV Area PHT 2.3 cm? Mitral E Point Velocity 111.0 cm/s Mitral A Point Velocity 133.0 cm/s Mitral E to A Ratio 0.8 LV E' Lateral Velocity 6.3 cm/s Mitral E to LV E' Lateral Ratio 17.7 LV E' Septal Velocity 5.7 cm/s Mitral E to LV E' Septal Ratio 19.4 TR Peak Velocity 177.5 cm/s TR Peak Gradient 12.6 mmHg FINDINGS Left Ventricle Normal left ventricular size, wall thickness, systolic function with no obvious regional wall motion abnormalities. There is grade I diastolic dysfunction of the left ventricle (impaired relaxation pattern). The left ventricular ejection fraction is normal, estimated at 60-65%. Right Ventricle The right ventricle is normal in size and systolic function. The estimated right ventricular systolic pressure, 20 mmHg. Left Atrium The left atrial cavity size is mildly increased. Right Atrium The right atrium is normal by two-dimensional imaging, color flow and Doppler imaging with no structural abnormalities, no thrombus formation present. Atrial Septum The interatrial septum appears normal with no evidence of a shunt. Aorta The aorta is normal by two-dimensional, color flow and Doppler interrogation. Mitral Valve Trace to mild mitral regurgitation. Mild mitral annular calcification. Aortic Valve Severe aortic valve stenosis, mean gradient 42.6 mmHg, MAIKOL 0.84 cm?. Tricuspid Valve There is mild tricuspid valve regurgitation. Pulmonic Valve The pulmonic valve is not well visualized. There is no significant pulmonic valve regurgitation. Vessels The pulmonary artery appears normal. The inferior vena cava pulmonary and hepatic veins appear normal. Pericardium The pericardium is normal by two-dimensional imaging. There is no significant pericardial effusion. CONCLUSIONS Indication: CHF and rule out severe Normal LV size and function with an EF of 60 to 65%. Mild to moderate LVH. Diastolic dysfunction stage I. Normal RV size and function. RVSP normal at 25 mmHg. Severe aortic stenosis with aortic valve area MAIKOL of 0.8 cm?, V-max 4.1 m/s, mean PG of 50 mmHg, peak PG of 70 mmHg. Mild MAC with mild MR and as well as mild TR. Mildly dilated LA. No pericardial effusion Wenceslao Aguilar (Electronically Signed) Final Date: 12 January 2025 22:25
--- NOTE | 2025-01-12 04:50 | PC.NURSE ---
DR. BECK NOTIFIED OF PT REFUSING HER BIPAP AND IS REQUESTING TO SPEAK WITH A DR. ENCOURAGED PT TO WEAR BIPAP UNTIL MD COMES AND SPEAKS TO HER.
[2025-01-12 06:23] LABS: Basophils % (Auto) 0 % (0-2.5); Eosinophils % (Auto) 0 % (0-10); Hematocrit 30.9 % (36.0-46.0); Immature Granulocytes % (Auto) 1 % (0-0); Immature Granulocytes Auto 0.04 Thou/mm3 (0.00-0.00); Lymphocytes % (Auto) 14 % (10-50); Mean Corpuscular HGB Conc 27.8 g/dl (31.0-37.0); Mean Corpuscular Hemoglobin 21.3 pg (25.0-35.0); Mean Corpuscular Volume 77 fL (80-100); Monocytes # (Auto) 0.8 Thou/mm3 (0.0-0.8); Monocytes % (Auto) 11 % (0-12); Neutrophils # (Auto) 5.2 Thou/mm3 (1.8-7.7); Neutrophils % (Auto) 73 % (37-80); Nucleated Red Blood Cell # 0.03 Thou/mm3 (0.00-0.00); Nucleated Red Blood Cell % 0 /100 WBC (0); Platelet Count 143 Thou/mm3 (140-440); RDW Standard Deviation 68.8 fL (36.4-46.3); Red Blood Count 4.03 Miln/mm3 (4.00-5.20)
[2025-01-12 06:25] LABS: Hemoglobin 8.6 g/dL (12.0-16.0)
[2025-01-12 07:03] LABS: Albumin, Serum 3.5 gm/dL (3.4-4.8); Albumin/Globulin Ratio 1.3 (1.2-2.2); Alkaline Phosphatase 64 U/L (46-116); Anion Gap 8 (7-16); Aspartate Amino Transferase 12 U/L (0-34); BUN/Creatinine Ratio 22 Ratio (12-20); Bilirubin,Total 0.9 mg/dL (0.3-1.2); Blood Urea Nitrogen 20 mg/dL (9-23); Calcium 8.1 mg/dL (8.3-10.6); Calcium (Corrected) 8.5 mg/dL (8.5-10.1); Carbon Dioxide > 40.0 mMol/L (20.0-31.0); Chloride 93 mMol/L (98-107); Creatinine (Component) 0.9 mg/dL (0.6-1.3); Estimated Creatinine Clearance 36.4 mL/min (>60); Globulin 2.7 gm/dL (2.3-3.5); Glucose 107 mg/dL (74-106); Magnesium 2.4 mg/dL (1.6-2.6); Osmolality,Calculated 283 (275-295); Phosphorous 2.1 mg/dL (2.4-5.1); Potassium 3.1 mMol/L (3.4-5.1); Sodium 141 mMol/L (136-145); Total Protein 6.2 gm/dL (5.7-8.2); eGFR > 60 See Note
[2025-01-12 07:10] LABS: Alanine Aminotransferase 7 U/L (10-49)
[2025-01-12] MEDS: MECLIZINE HCL 25 MG TABLET PO (09:37)
[2025-01-12] MEDS: VENLAFAXINE XR 37.5 MG CAPCR 150 MG PO (09:37)
[2025-01-12] MEDS: predniSONE 20 MG TABLET 40 MG PO (09:37)
[2025-01-12] MEDS: POTASSIUM CHLORIDE 20 mEq TABCR 40 MEQ PO (09:38)
[2025-01-12] MEDS: FUROSEMIDE INJ 10 MG/ML 4ML VIAL 40 MG IVP (09:38)
[2025-01-12] MEDS: POT PHOS 15 mMol in NS 250 ML 15 MMOL/250 ML BAG 62.5 MMOL IV (09:39)
[2025-01-12] MEDS: ACETAMINOPHEN 325 MG TABLET 650 MG PO (10:52)
[2025-01-12] MEDS: ACETAzolaMIDE SOD 500 MG in SODIUM CHLORIDE 0.9% (Popper) 50 ML 100 MG IV (10:58)
--- NOTE | 2025-01-12 13:40 | PC.SS ---
REIMBURSEMENT REP conducted bedside contact with the patient conduct initial assessment and to discuss discharge planning.? Patient confirmed demographic information.? 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 Patient resides at home with brand executive, Andrew Edwards . ?Patient confirms access to basic utilizes and provisions.? Patient reports no home safety concerns.? Patient utilizes a walker to assist with ambulation.? Patient utilizes home oxygen.? Patient requires assistance with the completion of ADL?s.? Patient?s surrogate medical decision maker is Josefa bradley .? Patient?s PCP is Varun Diaz.? Patient does not participate with dialysis.? Patient?s head of ethics and compliance is Dr. Rapp.? Patient utilizes [facility] for medication services.? Plan is for the patient to return home at the time of discharge.? clinical sociologist will provide transportation on behalf of the patient. ?No discharge needs identified by the patient.? No further intervention required at this time, social worker palliative care will be available to address any further concerns.? Next of Kin: Roby Martinez D/C Plan: Home
--- NOTE | 2025-01-12 13:44 | PC.SS ---
TRIMMER MACHINE conducted bedside contact with the patient conduct initial assessment and to discuss discharge planning.? Patient confirmed demographic information.? 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 Patient resides at home with vat overhauler, Andrew Edwards . ?Patient confirms access to basic utilizes and provisions.? Patient reports no home safety concerns.? Patient utilizes a walker to assist with ambulation.? Patient utilizes home oxygen.? Patient requires assistance with the completion of ADL?s.? Patient?s surrogate medical decision maker is Josefa bradley .? Patient?s PCP is Varun Diaz.? Patient does not participate with dialysis.? Patient?s industrial sales representative is Dr. Rapp.? Patient utilizes [facility] for medication services.? Plan is for the patient to return home at the time of discharge.? lawn caretaker will provide transportation on behalf of the patient. ?No discharge needs identified by the patient.? No further intervention required at this time, social psychologist will be available to address any further concerns.? Next of Kin: Josefa Faye D/C Plan: Home
--- NOTE | 2025-01-12 15:23 | PD.RESPRO ---
Documentation for date of: 01/12/25 Subjective Subjective Interval history: No acute events overnight.?Patient seen and examined at bedside this AM.?Patient seen on BiPAP, awake and answering questions appropriately. Patient has diuresed about 3.2L in the last 24 hours. Labs and vitals were reviewed. Potassium 3.1 and was repleted with 40 PO mEq. Phos 2.1 and was repleted with 15 mmol IV KPhos. Hgb stable at 8.6. Patient received 500 mg acetazolamide x1 for contraction alkalosis. Continued IV iron sucrose per cardio recommendations. Waiting for echo read. No further complaints at this time. Review of systems otherwise negative except what is mentioned above. Exam Vital Signs Temp Pulse Resp BP Pulse Ox O2 Del Method O2 Flow Rate 98.4 F 80 27 H 126/69 99 BiPAP 5 01/12/25 08:00 01/12/25 13:04 01/12/25 13:04 01/12/25 09:38 01/12/25 13:04 01/12/25 08:00 01/12/25 13:04 FiO2 35 01/12/25 08:07 Narrative Exam Constitutional: Elderly female somewhat short of breath on a BiPAP machine CVS: RRR, S1 and S2 present, 4/6 systolic ejection murmur heard best at the right upper sternal border, no rubs or gallops. RESP: CTAB, no SOB, no rales. Mild bilateral crackles at the lower bases. GI: Normal BS, Nontender/Nondistended. MSK: Full range of motion, No trauma or deformities or masses. Skin: There is mild diffused erythema in the bilateral lower extremities with 3+ pitting edema bilaterally. 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 Sensation grossly intact. Psych: (AAO) x3 . Appropriate mood and affect. Objective Labs 01/12/25 05:57 01/12/25 05:57 Labs: Laboratory Results - last 24 hr 01/12/25 05:57 WBC 7.0 RBC 4.03 Hgb 8.6 L Hct 30.9 L MCV 77 L MCH 21.3 L MCHC 27.8 L RDW Std Deviation 68.8 H Plt Count 143 Neut % (Auto) 73 Lymph % (Auto) 14 [place] % (Auto) 11 Eos % (Auto) 0 Baso % (Auto) 0 Neut # (Auto) 5.2 Lymph # (Auto) 1.0 [place] # (Auto) 0.8 Eos # (Auto) 0.0 Baso # (Auto) 0.0 Immature Gran # (Auto) 0.04 H Absolute Nucleated RBC 0.03 H Immature Gran % 1 H Nucleated RBC % 0 Sodium 141 Potassium 3.1 L D Chloride 93 L Carbon Dioxide > 40.0 H Anion Gap 8 BUN 20 Creatinine 0.9 Estim Creat Clear Calc 36.4 L eGFR > 60 BUN/Creatinine Ratio 22 H Glucose 107 H D Calculated Osmolality 283 Calcium 8.1 L Corrected Calcium 8.5 Phosphorus 2.1 L Magnesium 2.4 Total Bilirubin 0.9 AST 12 ALT 7 L Alkaline Phosphatase 64 Total Protein 6.2 Albumin 3.5 Globulin 2.7 Albumin/Globulin Ratio 1.3 ABG Interpretation ABG results: 01/09/25 01/10/25 01/11/25 23:10 01:05 09:54 ABG pH 7.19 L* 7.29 L D 7.50 H D ABG pCO2 98 H* 83 H* D 68 H D ABG pO2 63 L 70 L 61 L ABG HCO3 37 H 40 H 53 H ABG O2 Saturation 88 L 94 93 ABG Base Excess 7 H 11 H 26 H Quality Measures Quality Measures none Advance care planning discussed with:: patient Assessment & Plan Assessment Current Active Medications: Generic Name Dose Route Start Last Admin Trade Name Freq PRN Reason Stop Dose Admin Acetaminophen 650 mg 01/10/25 01:50 01/12/25 10:52 Acetaminophen 325 Mg Tablet PO 02/09/25 01:49 650 mg Q6H PRN Administration PAIN SCALE 1-3 (mild Acetaminophen 650 mg 01/10/25 06:05 Acetaminophen 325 Mg Tablet PO 02/09/25 01:49 Q6H PRN Fever >100.4 Albuterol/Ipratropium 3 ml 01/10/25 07:00 01/12/25 13:02 Albuterol/Ipratropium (Duoneb) Rt Shanelle 3 Ml Nebu INH 02/09/25 06:59 3 ml Q6HRRT BRYNN Administration Furosemide 40 mg 01/12/25 09:00 01/12/25 09:38 Furosemide Inj 10 Mg/Ml 4ml Vial IVP 02/11/25 08:59 40 mg QDAY BRYNN Administration Azithromycin 500 mg/ Sodium 250 mls @ 250 mls/hr 01/10/25 21:00 01/11/25 20:09 Chloride IV 01/17/25 20:59 250 mls/hr HS BRYNN Administration Meclizine HCl 25 mg 01/10/25 09:00 01/12/25 09:37 Meclizine Hcl 25 Mg Tablet PO 02/09/25 08:59 25 mg QDAY BRYNN Administration Prednisone 40 mg 01/10/25 11:15 01/12/25 09:37 Prednisone 20 Mg Tablet PO 02/09/25 11:14 40 mg QDAY BRYNN Administration Venlafaxine HCl 150 mg 01/10/25 09:00 01/12/25 09:37 Venlafaxine Xr 37.5 Mg Capcr PO 02/09/25 08:59 150 mg QDAY BRYNN Administration Plan The patient is an 89-year-old female with significant past medical history of COPD on 2L home oxygen at night, diabetes mellitus type 2, gastric ulcer, depression, valley fever, chronic vertigo with on and off anemia presented to ED with chief complaint of SOB that has been worsening for past several weeks. She was admitted to telemetry unit for further management of acute hypoxic hypercapnic respiratory failure 2/2 COPD exacerbation and severe symptomatic anemia. #Acute hypoxic and hypercapnic respiratory failure #Pulmonary edema #New onset CHF exacerbation #COPD exacerbation The patient complained of SOB that has been worsening for past several weeks, reported having low energy, bilateral lower limb edema, easy fatigability and weakness. Physical examination was significant for bilateral lower limb pitting edema extending up to mid thigh. Chest x-ray was significant for moderate CHF later was found to have pulmonary edema. Initial ABG revealed pH 7.19 and PCO2 98. Last documented echo in 06/2023 showed EF 55-60% and moderate aortic stenosis. -Continue Lasix 40 mg IV qday -Continue BiPAP -Strict ins and outs -Duonebs Q6H scheduled -Continue prednisone 40 mg PO qday -Fluid restriction 1500 ml -Low sodium diet -Continue azithromycin 500 Mg IV daily in the setting of COPD exacerbation -TTE pending #Moderate aortic stenosis Physical examination reveals a 4 out of 6 systolic murmur best heard in the right upper sternal border Previous echocardiogram was done in June 2023 which revealed an EF of 55 to 60% with moderate AV stenosis with a mean pressure of 26 mmHg and a V-max of 3.2 m/s Likely playing a component in patient's shortness of breath as well as anemia -TTE pending -Cardiology consulted and following, appreciate recommendations #Severe symptomatic microcytic anemia Likely secondary to mechanical destruction due to severe aortic stenosis Patient denied any dark bowel movement, or bloody on her stool, occult blood test was negative making GI blood loss less likely Physical examination was significant for severe crescendo-decrescendo midsystolic murmur at right second intercostal space Hemoglobin during presentation was 4.4, hematocrit 19.1, MCV 73, RDW 52.1 Iron panel showed low iron of 11, TIBC 451, 2% iron saturation, ferritin 11 Reticulocyte count high at 3.2% s/p 3 units of PRBC -Continue to monitor H&H, and transfuse PRBC if hemoglobin less than 7 -Avoid NSAIDs/ASA/chemical prophylaxis #Depression -Continue venlafaxine 150 mg ER daily -Resume home medications after reconciliation #Chronic vertigo -Continue meclizine 25 mg daily #Diabetes mellitus type 2 A1c 5.6, patient not in diabetic range. AM glucose has ranged 116-221, patient is currently on steroid as well. -No need for subQ insulin at this time -Monitor daily glucose on chem panel Health maintenance: Dispo: Patient admitted to telemetry unit for further management of acute hypoxic hypercapnic respiratory failures and severe symptomatic microcytic anemia Diet: Cardiac diet with fluid restriction of 1500 cc DVT prophylaxis: SCDs CODE STATUS: DNR, okay to intubate if needed Patient plan of care was discussed with the attending physician, Dr. Lu. Mallory Quintanilla, PGY-2 Attending Provider Attestation/Addendum I reviewed labs, imaging, EKG, home medications and prior available records. Face to face evaluation was performed by me. I have personally examined the patient and discussed assessment and plan with the IM team. I reviewed the resident note and agree with the plan with exceptions as below. Acute respiratory failure with hypoxia Acute respiratory failure with hypercarbia Metabolic alkalosis, new complication Acute on chronic anemia Microcytic anemia Thrombocytopenia CHF exacerbation COPD exacerbation ABG showed improvement in the hypercarbia Wean off oxygen as tolerated Bicarb increased. Likely contraction alkalosis. Discussed with cardiology: Recommended giving Diamox Continue IV diuresis. Decreased Lasix to 40 mg IV daily Follow-up echocardiogram Replete potassium as needed and monitor BMP Started DuoNebs. Started p.o. prednisone 3 PRBC transfused. H&H improved appropriately posttransfusion. No evidence of GI bleed. Monitor H&H Monitor platelet level. Monitor for bleed
--- NOTE | 2025-01-12 15:40 | ESPR_ITS ---
Documentation for date of: 01/12/25 Subjective Subjective Interval history: Patient seen and examined at bedside, off BiPAP breathing comfortably on nasal cannula. Patient is -2.3 L in the last 24 hours hospitalization net negative -6.9 L Continue diuresis with 40 mg IV Lasix daily, patient still has significant bilateral lower extremity edema. Patient is receiving IV iron infusions Potassium 3.1, phosphorus 2.1 this morning replaced by primary team Will continue IV diuresis and continue to monitor patient. Exam Vital Signs Temp Pulse Resp BP Pulse Ox O2 Del Method O2 Flow Rate 98.4 F 80 27 H 126/69 99 BiPAP 5 01/12/25 08:00 01/12/25 13:04 01/12/25 13:04 01/12/25 09:38 01/12/25 13:04 01/12/25 08:00 01/12/25 13:04 FiO2 35 01/12/25 08:07 Narrative Exam Constitutional: Elderly female comfortable on BiPAP machine HEENT: Normocephalic, atraumatic, mucous membranes moist. CVS: RRR, S1 and S2 present, + systolic murmur aortic area, no rubs or gallops . RESP: CTAB, no SOB, no rales. There is bilateral rhonchi with some wheezing GI: Normal BS, Nontender/Nondistended. MSK: Full range of motion, No trauma or deformities or masses. Skin: Improved erythema, bilateral lower extremities with 4+ pitting edema bilaterally, significant edema noted on dependent body parts. Neuro: AAOx3. musculoskeletal physiotherapist II-XII grossly intact. Sensation grossly intact. Psych: Appropriate mood and affect. Objective Labs 01/12/25 05:57 01/12/25 05:57 Labs: Laboratory Results - last 24 hr 01/12/25 05:57 WBC 7.0 RBC 4.03 Hgb 8.6 L Hct 30.9 L MCV 77 L MCH 21.3 L MCHC 27.8 L RDW Std Deviation 68.8 H Plt Count 143 Neut % (Auto) 73 Lymph % (Auto) 14 [place] % (Auto) 11 Eos % (Auto) 0 Baso % (Auto) 0 Neut # (Auto) 5.2 Lymph # (Auto) 1.0 [place] # (Auto) 0.8 Eos # (Auto) 0.0 Baso # (Auto) 0.0 Immature Gran # (Auto) 0.04 H Absolute Nucleated RBC 0.03 H Immature Gran % 1 H Nucleated RBC % 0 Sodium 141 Potassium 3.1 L D Chloride 93 L Carbon Dioxide > 40.0 H Anion Gap 8 BUN 20 Creatinine 0.9 Estim Creat Clear Calc 36.4 L eGFR > 60 BUN/Creatinine Ratio 22 H Glucose 107 H D Calculated Osmolality 283 Calcium 8.1 L Corrected Calcium 8.5 Phosphorus 2.1 L Magnesium 2.4 Total Bilirubin 0.9 AST 12 ALT 7 L Alkaline Phosphatase 64 Total Protein 6.2 Albumin 3.5 Globulin 2.7 Albumin/Globulin Ratio 1.3 ABG Interpretation ABG results: 01/09/25 01/10/25 01/11/25 23:10 01:05 09:54 ABG pH 7.19 L* 7.29 L D 7.50 H D ABG pCO2 98 H* 83 H* D 68 H D ABG pO2 63 L 70 L 61 L ABG HCO3 37 H 40 H 53 H ABG O2 Saturation 88 L 94 93 ABG Base Excess 7 H 11 H 26 H Quality Measures Quality Measures none Advance care planning discussed with:: patient Assessment & Plan Assessment Current Active Medications: Generic Name Dose Route Start Last Admin Trade Name Freq PRN Reason Stop Dose Admin Acetaminophen 650 mg 01/10/25 01:50 01/12/25 10:52 Acetaminophen 325 Mg Tablet PO 02/09/25 01:49 650 mg Q6H PRN Administration PAIN SCALE 1-3 (mild Acetaminophen 650 mg 01/10/25 06:05 Acetaminophen 325 Mg Tablet PO 02/09/25 01:49 Q6H PRN Fever >100.4 Albuterol/Ipratropium 3 ml 01/10/25 07:00 01/12/25 13:02 Albuterol/Ipratropium (Duoneb) Rt Shanelle 3 Ml Nebu INH 02/09/25 06:59 3 ml Q6HRRT BRYNN Administration Furosemide 40 mg 01/12/25 09:00 01/12/25 09:38 Furosemide Inj 10 Mg/Ml 4ml Vial IVP 02/11/25 08:59 40 mg QDAY BRYNN Administration Azithromycin 500 mg/ Sodium 250 mls @ 250 mls/hr 01/10/25 21:00 01/11/25 20:09 Chloride IV 01/17/25 20:59 250 mls/hr HS BRYNN Administration Meclizine HCl 25 mg 01/10/25 09:00 01/12/25 09:37 Meclizine Hcl 25 Mg Tablet PO 02/09/25 08:59 25 mg QDAY BRYNN Administration Prednisone 40 mg 01/10/25 11:15 01/12/25 09:37 Prednisone 20 Mg Tablet PO 02/09/25 11:14 40 mg QDAY BRYNN Administration Venlafaxine HCl 150 mg 01/10/25 09:00 01/12/25 09:37 Venlafaxine Xr 37.5 Mg Capcr PO 02/09/25 08:59 150 mg QDAY BRYNN Administration Plan Assessment and Plan: Summary: Ms. Viera is a 89-year-old female with significant past medical history of COPD on 2 L home oxygen at night, diabetes mellitus type 2, gastric ulcer, depression, valley fever, chronic vertigo and anemia presented to ED with chief complaint of SOB that has been worsening for past several weeks. Cardiology consulted secondary to CHF exacerbation and moderate to severe aortic stenosis. #Acute hypoxic and hypercapnic respiratory failure secondary to #COPD exacerbation #Acute decompensated heart failure #Congestive heart failure, new onset #Severe symptomatic anemia Patient presented initially with worsening shortness of breath over the past several weeks, tiredness low energy, bilateral lower extremity edema. Patient had SpO2 77 on 3 L nasal cannula, ABG showed pH 7.19, pCO2 98 and hence patient was started on BiPAP. Patient denies any history of heart disease, has never seen a reconnaissance man. Patient was admitted in June 2023 for acute left femoral neck and cardiology was consulted to obtain preop cardiac clearance. Echocardiogram from 2022 showed Echocardiogram 2022: Normal LV size and function. Mild LVH. Estimated EF 55-60% Normal RV size and function. Mild MAC. Trace MR Moderate AV stenosis. Mean PG 26mmHg, Vmax 3.2m/s Mild AI, Trace TR EKG for this visit shows sinus rhythm, heart rate 89. No acute ST-T changes noted. Chest x-ray shows significant bilateral edema. On physical exam patient does have 4+ bilateral lower extremity edema Patient's hemoglobin on presentation 4.4, hematocrit 19.1, further investigation shows severe iron deficiency, iron 11, TIBC 451, iron saturation 2%, unsaturated iron binding 440, ferritin 11. 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 Patient had colonoscopy done per review of records on 03/06/2024, shows no AV malformations, or diffuse area of mildly erythematous mucosa was seen in descending colon, pathology for those showed normal colonic mucosa Patient denies any history of smoking, did have extensive exposure to secondhand smoke. Patient has been on home oxygen for at least 2 years, use albuterol inhaler. 01/12-Patient is -2.3 L in the last 24 hours hospitalization neck negative -6.9 L Recommendations: -Continue Lasix 40 mg daily cautious diuresis considering patient has moderate to severe aortic stenosis. -Continue IV Iron Sucrose, replace IV Iron for 3-5 days due to severe symptomastic anemia has iron deficiency component. 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 -Continue BiPAP at night -Strict intake and output -Fluid restriction 1500 cc, daily weight -Cardiac low-sodium diet -Follow transthoracic echocardiogram to assess LV/RV function and systolic and diastolic function. 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 -Patient was transfused 3 units PRBC, posttransfusion H&H stable. -Monitor for GI bleed, bleeding precautions. -Patient has significant iron deficiency, will benefit from iron supplementation. #Aortic stenosis Patient's last echo showed moderate AV stenosis, mean PG 26 mmHg, V-max 3.2 m/s. Patient has a significant systolic aortic murmur Patient's hemoglobin on presentation 4.4, hematocrit 19.1, further investigation shows severe iron deficiency, iron 11, TIBC 451, iron saturation 2%, unsaturated iron binding 440, ferritin 11. 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 -Patient would likely outpatient workup once more stable for possible aortic valve replacement. #Electrolyte abnormalities #Hypokalemia Correct and replace electrolytes as needed, aggressively replace potassium and magnesium Keep potassium more than 4 and magnesium more than 2 # Metabolic alkalosis Patient likely has contraction alkalosis due to diuresis with IV Lasix, patient is still fluid overloaded. Was given Diamox 500 mg IV x 2 -01/11 -Start on Diamox 500 mg qday #Depression -Started on venlafaxine 150 Mg ER daily #Chronic vertigo -Started on meclizine 25 Mg daily #Diabetes mellitus type 2 A1c 5.6, patient's blood glucose on BMP in range of 140-180 Thank you for the consult and allowing to participate in the care of the patient. Cardiology will continue to follow. Case discussed with Attending Dr. Aguilar. Lisa Wilkerson PGY1 Disclaimer: This note was dictated by speech recognition. Minor errors in drafting detailer may be present due to voice recognition software. Attending Provider Attestation/Addendum I have personally seen and examined the patient separately on the above date of service and discussed the plan of care with the resident. I reviewed the resident Dr. Lisa Wilkerson consultation progress note and agree with the resident findings and plan in the note above and have also edited the documentation to reflect my findings and plan. Wenceslao Aguilar M.D. Interventional Cardiology
[2025-01-12] MEDS: IRON SUCROSE CPLX INJ 20 MG/ML VIAL 5 ML 100 MG IVP (16:16)
[2025-01-12] MEDS: AZITHROMYCIN INJ 500 MG in SODIUM CHLORIDE 0.9% 250 ML 250 ML 250 MG IV (20:22)
[2025-01-13] VITALS (19 sets, daily range): BP systolic 94–134; BP diastolic 46–70; PULSE 70–136; RESP 16–30; TEMP 36.1–36.9; O2SAT 92–99; BMI 37.2; BMI 36.8
[2025-01-13] MEDS: ALBUTEROL/IPRATROPIUM (Duoneb) RT SOL 3 ML NEBU INH ×4 (01:10→18:18)
[2025-01-13 07:58] LABS: Basophils % (Auto) 0 % (0-2.5); Eosinophils % (Auto) 0 % (0-10); Hematocrit 31.9 % (36.0-46.0); Immature Granulocytes % (Auto) 1 % (0-0); Immature Granulocytes Auto 0.06 Thou/mm3 (0.00-0.00); Lymphocytes # (Auto) 1.1 Thou/mm3 (1.0-4.8); Lymphocytes % (Auto) 12 % (10-50); Mean Corpuscular HGB Conc 27.6 g/dl (31.0-37.0); Mean Corpuscular Hemoglobin 21.9 pg (25.0-35.0); Mean Corpuscular Volume 79 fL (80-100); Monocytes % (Auto) 10 % (0-12); Neutrophils # (Auto) 7.3 Thou/mm3 (1.8-7.7); Neutrophils % (Auto) 77 % (37-80); Nucleated Red Blood Cell # 0.03 Thou/mm3 (0.00-0.00); Nucleated Red Blood Cell % 0 /100 WBC (0); Platelet Count 126 Thou/mm3 (140-440); Red Blood Count 4.02 Miln/mm3 (4.00-5.20); White Blood Count 9.5 Thou/mm3 (3.6-11.0)
[2025-01-13 08:01] LABS: Hemoglobin 8.8 g/dL (12.0-16.0)
[2025-01-13 08:27] LABS: Anion Gap 5 (7-16); BUN/Creatinine Ratio 24 Ratio (12-20); Blood Urea Nitrogen 19 mg/dL (9-23); Calcium 8.1 mg/dL (8.3-10.6); Carbon Dioxide > 40.0 mMol/L (20.0-31.0); Chloride 97 mMol/L (98-107); Creatinine (Component) 0.8 mg/dL (0.6-1.3); Estimated Creatinine Clearance 54.4 mL/min (>60); Glucose 101 mg/dL (74-106); Osmolality,Calculated 285 (275-295); Phosphorous 3.4 mg/dL (2.4-5.1); Potassium 3.9 mMol/L (3.4-5.1); Sodium 142 mMol/L (136-145); eGFR > 60 See Note
[2025-01-13] MEDS: FUROSEMIDE INJ 10 MG/ML 4ML VIAL 40 MG IVP (09:05)
[2025-01-13] MEDS: ACETAzolaMIDE SOD 500 MG in SODIUM CHLORIDE 0.9% (Popper) 50 ML 100 MG IV (09:05)
[2025-01-13] MEDS: MECLIZINE HCL 25 MG TABLET PO (09:06)
[2025-01-13] MEDS: VENLAFAXINE XR 37.5 MG CAPCR 150 MG PO (09:06)
[2025-01-13] MEDS: predniSONE 20 MG TABLET 40 MG PO (09:06)
[2025-01-13 09:33] LABS: Base Excess 12 (-3-3); HCO3 39 mEq/L (20-26); Inspired Oxygen, FIO2 35 %; O2 Saturation 97 % (91-98); PCO2 68 mmHg (32.0-48.0); PO2 80 mmHg (83-108); pH, Arterial 7.37 (7.35-7.45)
[2025-01-13 09:34] LABS: Allen Test Performed/OK; Puncture Site Right Radial
--- NOTE | 2025-01-13 10:04 | PD.RESPRO ---
Documentation for date of: 01/13/25 Subjective Subjective Interval history: Patient seen and examined at bedside, -1 L net negative in the last 24 hours, Total hospitalization net negative -7.7 L Continue Lasix 40 mg IV daily and Diamox 500 mg daily. Patient is confused this morning, was not put on BiPAP overnight, ABG this morning shows pH 7.37, pCO2 68. Possible hospital-acquired delirium. Echocardiogram shows Normal LV size and function with an EF of 60 to 65%. Mild to moderate LVH. Diastolic dysfunction stage I. Normal RV size and function. RVSP normal at 25 mmHg. Severe aortic stenosis with aortic valve area MAIKOL of 0.8 cm?, V-max 4.1 m/s, mean PG of 50 mmHg, peak PG of 70 mmHg. Mild MAC with mild MR and as well as mild TR. Mildly dilated LA. No pericardial effusion. Hemoglobin has been stable since transfusion of 3 units, should obtain GI workup to rule out gastrointestinal angiodysplasias, patient had severe symptomatic anemia, had severe iron deficiency on presentation, was given IV iron x 2, will benefit from iron supplementation and GI workup to rule out Heyde syndrome. Patient had an episode of atrial fibrillation with rapid ventricular response today, was started on amiodarone drip by primary team. Patient's [id number] score 5, patient will be started on heparin drip for anticoagulation, will continue amiodarone drip and monitor the patient. Exam Vital Signs Temp Pulse Resp BP Pulse Ox O2 Del Method O2 Flow Rate 97.2 F 80 18 120/60 97 BiPAP 4 01/13/25 08:00 01/13/25 09:05 01/13/25 08:00 01/13/25 09:05 01/13/25 08:00 01/13/25 08:00 01/13/25 08:00 FiO2 35 01/13/25 08:00 Narrative Exam Constitutional: Elderly female comfortable on BiPAP machine HEENT: Normocephalic, atraumatic, mucous membranes moist. CVS: RRR, S1 and S2 present, + systolic murmur aortic area, no rubs or gallops . RESP: CTAB, no SOB, no rales. There is bilateral rhonchi with some wheezing GI: Normal BS, Nontender/Nondistended. MSK: Full range of motion, No trauma or deformities or masses. Skin: Improved erythema, bilateral lower extremities with 4+ pitting edema bilaterally, significant edema noted on dependent body parts. Neuro: AAOx3. acquisition professional II-XII grossly intact. Sensation grossly intact. Psych: Appropriate mood and affect. Objective Labs 01/14/25 07:10 01/14/25 07:10 Labs: Laboratory Results - last 24 hr 01/13/25 01/13/25 07:00 09:15 WBC 9.5 RBC 4.02 Hgb 8.8 L Hct 31.9 L MCV 79 L MCH 21.9 L MCHC 27.6 L RDW Std Deviation 71.0 H Plt Count 126 L Neut % (Auto) 77 Lymph % (Auto) 12 [place] % (Auto) 10 Eos % (Auto) 0 Baso % (Auto) 0 Neut # (Auto) 7.3 Lymph # (Auto) 1.1 [place] # (Auto) 1.0 H Eos # (Auto) 0.0 Baso # (Auto) 0.0 Immature Gran # (Auto) 0.06 H Absolute Nucleated RBC 0.03 H Immature Gran % 1 H Nucleated RBC % 0 Puncture Site Right Radial ABG pH 7.37 D ABG pCO2 68 H ABG pO2 80 L ABG HCO3 39 H ABG O2 Saturation 97 ABG Base Excess 12 H FiO2 35 Sodium 142 Potassium 3.9 D Chloride 97 L Carbon Dioxide > 40.0 H Anion Gap 5 L BUN 19 Creatinine 0.8 Estim Creat Clear Calc 54.4 L eGFR > 60 BUN/Creatinine Ratio 24 H Glucose 101 Calculated Osmolality 285 Calcium 8.1 L Phosphorus 3.4 ABG Interpretation ABG results: 01/09/25 01/10/25 01/11/25 23:10 01:05 09:54 ABG pH 7.19 L* 7.29 L D 7.50 H D ABG pCO2 98 H* 83 H* D 68 H D ABG pO2 63 L 70 L 61 L ABG HCO3 37 H 40 H 53 H ABG O2 Saturation 88 L 94 93 ABG Base Excess 7 H 11 H 26 H 01/13/25 09:15 ABG pH 7.37 D ABG pCO2 68 H ABG pO2 80 L ABG HCO3 39 H ABG O2 Saturation 97 ABG Base Excess 12 H Quality Measures Quality Measures none Advance care planning discussed with:: patient Assessment & Plan Assessment Current Active Medications: Generic Name Dose Route Start Last Admin Trade Name Freq PRN Reason Stop Dose Admin Acetaminophen 650 mg 01/10/25 01:50 01/12/25 10:52 Acetaminophen 325 Mg Tablet PO 02/09/25 01:49 650 mg Q6H PRN Administration PAIN SCALE 1-3 (mild Acetaminophen 650 mg 01/10/25 06:05 Acetaminophen 325 Mg Tablet PO 02/09/25 01:49 Q6H PRN Fever >100.4 Albuterol/Ipratropium 3 ml 01/10/25 07:00 01/13/25 06:40 Albuterol/Ipratropium (Duoneb) Rt Shanelle 3 Ml Nebu INH 02/09/25 06:59 3 ml Q6HRRT BRYNN Administration Furosemide 40 mg 01/12/25 09:00 01/13/25 09:05 Furosemide Inj 10 Mg/Ml 4ml Vial IVP 02/11/25 08:59 40 mg QDAY BRYNN Administration Acetazolamide Sodium 500 mg/ 50 mls @ 100 mls/hr 01/13/25 09:00 01/13/25 09:05 Sodium Chloride IV 02/12/25 08:59 100 mls/hr QDAY BRYNN Administration Meclizine HCl 25 mg 01/10/25 09:00 01/13/25 09:06 Meclizine Hcl 25 Mg Tablet PO 02/09/25 08:59 25 mg QDAY BRYNN Administration Prednisone 40 mg 01/10/25 11:15 01/13/25 09:06 Prednisone 20 Mg Tablet PO 02/09/25 11:14 40 mg QDAY BRYNN Administration Venlafaxine HCl 150 mg 01/10/25 09:00 01/13/25 09:06 Venlafaxine Xr 37.5 Mg Capcr PO 02/09/25 08:59 150 mg QDAY BRYNN Administration Plan Assessment and Plan: Summary: Ms. Viera is a 89-year-old female with significant past medical history of COPD on 2 L home oxygen at night, diabetes mellitus type 2, gastric ulcer, depression, valley fever, chronic vertigo and anemia presented to ED with chief complaint of SOB that has been worsening for past several weeks. Cardiology consulted secondary to CHF exacerbation and moderate to severe aortic stenosis. #Acute hypoxic and hypercapnic respiratory failure secondary to #COPD exacerbation #Acute decompensated heart failure #Heart failure with preserved ejection fraction, EF 60 to 65% #Diastolic heart failure #Severe symptomatic anemia Patient presented initially with worsening shortness of breath over the past several weeks, tiredness low energy, bilateral lower extremity edema. Patient had SpO2 77 on 3 L nasal cannula, ABG showed pH 7.19, pCO2 98 and hence patient was started on BiPAP. Patient denies any history of heart disease, has never seen a motion study engineer. Patient was admitted in June 2023 for acute left femoral neck and cardiology was consulted to obtain preop cardiac clearance. Echocardiogram from 2022 showed EKG for this visit shows sinus rhythm, heart rate 89. No acute ST-T changes noted. Chest x-ray shows significant bilateral edema. On physical exam patient does have 4+ bilateral lower extremity edema Patient's hemoglobin on presentation 4.4, hematocrit 19.1, further investigation shows severe iron deficiency, iron 11, TIBC 451, iron saturation 2%, unsaturated iron binding 440, ferritin 11. 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 Patient had colonoscopy done per review of records on 03/06/2024, shows no AV malformations, or diffuse area of mildly erythematous mucosa was seen in descending colon, pathology for those showed normal colonic mucosa Patient denies any history of smoking, did have extensive exposure to secondhand smoke. Patient has been on home oxygen for at least 2 years, use albuterol inhaler. 01/13-Patient is -1 L net negative in the last 24 hours, Total hospitalization net negative -7.7 L Echocardiogram 01/12/25: Normal LV size and function with an EF of 60 to 65%. Mild to moderate LVH. Diastolic dysfunction stage I. Normal RV size and function. RVSP normal at 25 mmHg. Severe aortic stenosis with aortic valve area MAIKOL of 0.8 cm?, V-max 4.1 m/s, mean PG of 50 mmHg, peak PG of 70 mmHg. Mild MAC with mild MR and as well as mild TR. Mildly dilated LA. No pericardial effusion. Recommendations: -Continue Lasix 40 mg daily cautious diuresis considering patient has moderate to severe aortic stenosis. -Continue IV Iron Sucrose, replace IV Iron for 3-5 days due to severe symptomatic anemia has iron deficiency component. 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 -Continue BiPAP at night -Strict intake and output -Fluid restriction 1500 cc, daily weight -Cardiac low-sodium diet -Management of COPD exacerbation per primary team, patient is on DuoNeb every 6 hour [employer], ceftriaxone and azithromycin was given x 1 in ED and is on prednisone 40 mg p.o. daily -Patient has significant symptomatic anemia, has history of gastric ulcers, there is suspicion of heyde syndrome, was transfused 3 units PRBC, posttransfusion H&H stable. -Monitor for GI bleed, bleeding precautions. -Patient has significant iron deficiency, will benefit from iron supplementation. # New onset atrial fibrillation with rapid ventricular response EKG 01/13/2025 shows atrial fibrillation with RVR, patient was on BiPAP. [id number] score 5 Recommendations: -Continue amiodarone drip -Start patient on heparin drip for anticoagulation -Continue telemonitoring #Severe aortic stenosis Patient's echocardiogram 2022 showed moderate AV stenosis, mean PG 26 mmHg, V-max 3.2 m/s. Patient has a significant systolic aortic murmur Patient's hemoglobin on presentation 4.4, hematocrit 19.1, further investigation shows severe iron deficiency, iron 11, TIBC 451, iron saturation 2%, unsaturated iron binding 440, ferritin 11. 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 Patient had colonoscopy done per review of records on 03/06/2024, shows no AV malformations, or diffuse area of mildly erythematous mucosa was seen in descending colon, pathology for those showed normal colonic mucosa Echocardiogram 01/12/25: Normal LV size and function with an EF of 60 to 65%. Mild to moderate LVH. Diastolic dysfunction stage I. Normal RV size and function. RVSP normal at 25 mmHg. Severe aortic stenosis with aortic valve area MAIKOL of 0.8 cm?, V-max 4.1 m/s, mean PG of 50 mmHg, peak PG of 70 mmHg. Mild MAC with mild MR and as well as mild TR. Mildly dilated LA. No pericardial effusion. 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 -Patient would likely outpatient workup once more stable for possible aortic valve replacement. #Electrolyte abnormalities #Hypokalemia Correct and replace electrolytes as needed, aggressively replace potassium and magnesium Keep potassium more than 4 and magnesium more than 2 # Metabolic alkalosis Patient likely has contraction alkalosis due to diuresis with IV Lasix, patient is still fluid overloaded. Was given Diamox 500 mg IV x 2 -01/11 -Start on Diamox 500 mg qday #Depression -Started on venlafaxine 150 Mg ER daily #Chronic vertigo -Started on meclizine 25 Mg daily #Diabetes mellitus type 2 A1c 5.6, patient's blood glucose on BMP in range of 140-180 Thank you for the consult and allowing to participate in the care of the patient. Cardiology will continue to follow. Case discussed with Attending Dr. Aguilar. Lisa Wilkerson PGY1 Disclaimer: This note was dictated by speech recognition. Minor errors in ammonia refrigeration worker may be present due to voice recognition software. Attending Provider Attestation/Addendum I have personally seen and examined the patient separately on the above date of service and discussed the plan of care with the resident. I reviewed the resident Dr. Lisa Wilkerson consultation progress note and agree with the resident findings and plan in the note above and have also edited the documentation to reflect my findings and plan. Wenceslao Aguilar M.D. Interventional Cardiology
--- NOTE | 2025-01-13 10:38 | CHAP ---
Patient was visited by a Spiritual Care Volunteer on 01/13/2025 between 0900 and 0945 and received comfort, encouragement, and prayer.
[2025-01-13] MEDS: IRON SUCROSE CPLX INJ 20 MG/ML VIAL 5 ML 100 MG IVP (11:39)
--- NOTE | 2025-01-13 12:45 | EKG_ITS ---
[facility] Test Date: 2025-01-13 Pat Name: LAMBERT MALONE [facility]: [facility] Gender: Female Fabric Lay Out Worker: KELLY : 1935 Requested By: Filipe Lu Order Number: [id number] Reading MD: Filipe Lu Measurements Intervals [place] Rate: 128 P: [place]: QRS: 33 QRSD: 118 T: 30 QT: 326 QTc: 477 Interpretive Statements ATRIAL FIBRILLATION WITH RAPID VENTRICULAR RESPONSE INDETERMINATE AXIS MODERATE INTRAVENTRICULAR CONDUCTION DELAY MODERATE ST DEPRESSION Compared to ECG 01/09/2025 16:09:37 Indeterminate axis now present Intraventricular conduction delay now present ST (T wave) deviation now present Sinus rhythm no longer present Short MI interval no longer present Atrial abnormality no longer present Right ventricular hypertrophy no longer present T-wave abnormality no longer present /store/S0/[id number].pdf
--- NOTE | 2025-01-13 12:55 | PD.ADDPROG ---
Addendum Progress Note Addendum Date of report being addended: 01/13/25 Narrative: I reviewed labs, imaging, EKG, home medications and prior available records. Face to face evaluation was performed by me. I have personally examined the patient and discussed assessment and plan with the IM team. I reviewed the resident note and agree with the plan with exceptions as below. Atrial fibrillation with RVR, new complication on 01/13 Acute respiratory failure with hypoxia Acute respiratory failure with hypercarbia Metabolic alkalosis Acute on chronic anemia Microcytic anemia, iron deficiency anemia Thrombocytopenia CHF exacerbation COPD exacerbation Ordered stat EKG: Showed A-fib with RVR. Discussed with cardiology: Started IV amiodarone and heparin drip. ABG showed improvement in the hypercarbia Wean off oxygen as tolerated Bicarb increased. Likely contraction alkalosis. Discussed with cardiology: Recommended giving Diamox Continue IV diuresis. Decreased Lasix to 40 mg IV daily Follow-up echocardiogram: EF 60 to 65%. Showed severe aortic stenosis. Discussed with cardiology: Recommended GI consultation for colonoscopy for concern for Heyde's syndrome Outpatient follow-up for the aortic valve repair Replete potassium as needed and monitor BMP Started DuoNebs. She received p.o. prednisone 3 PRBC transfused. H&H improved appropriately posttransfusion. No evidence of GI bleed. Monitor H&H. Start iron therapy Monitor platelet level. Monitor for bleed
[2025-01-13] MEDS: AMIODARONE 150 MG IVPB 150 MG/100 ML BAG 600 MG IV (13:26)
[2025-01-13] MEDS: AMIODARONE 360 MG IVPB 360 MG/200 ML BAG 33.333 MG IV (13:38)
--- NOTE | 2025-01-13 15:52 | ESPR_ITS ---
<Statement entered by Mallory Quintanilla MD - 01/14/25 08:12> Patient was seen and examined by me personally. I have directly supervised and reviewed documentation by the team resident and agree with its findings with any exceptions or additional findings as below. Plan of care was discussed with the attending, Dr. Lu. Patient was seen on BiPAP this morning, awake and alert. Continues to diurese well with more than 2L output in last 24 hours. On exam there is still bilateral lower extremity pitting edema but improved significantly. GI was consulted at the request of the Cardiology team to further evaluate anemia. This afternoon the patient started having afib with RvR at a rate in the 130. She was started on an amiodarone drip and heparin drip as recommended by Cardiology as CHADS- Vasc is 5. Hgb has been stable thus far. Mallory Quintanilla, PGY-2 Documentation for date of: 01/13/25 Subjective Subjective Interval history: Patient was seen and examined by the bedside. No acute overnight events. Patient reports feeling better, still weak. ABG was negative for additional pCO2 retention, showed improved hypoxia. She is saturating well on BiPAP. Around 1 PM on telemetry A-fib was recorded, EKG showed A-fib with RVR, blood pressure was 120/74, heart rate was in the 130s. Patient was started on amiodarone and heparin drip due to new onset A-fib, [id number] 5. Cardiology is following, appreciate recommendations. Exam Vital Signs Temp Pulse Resp BP Pulse Ox O2 Del Method O2 Flow Rate 97.4 F 95 19 97/53 L 97 BiPAP 4 01/13/25 12:00 01/13/25 13:53 01/13/25 13:53 01/13/25 13:38 01/13/25 13:53 01/13/25 12:00 01/13/25 12:00 FiO2 35 01/13/25 13:53 Narrative Exam Constitutional: Chronically ill-appearing female on BiPAP. CVS: RRR, S1 and S2 present, 4/6 systolic murmur heard best at the right upper sternal border. RESP: CTAB, no SOB, no rales. GI: Normal BS, Nontender/Nondistended. MSK: Full range of motion, No trauma or deformities or masses. Skin: There is mild diffused erythema in the bilateral lower extremities with 1+ pitting edema bilaterally. 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 Sensation grossly intact. Psych: (AAO) x3 . Appropriate mood and affect. Objective Labs 01/13/25 07:00 01/13/25 07:00 Labs: Laboratory Results - last 24 hr 01/13/25 01/13/25 07:00 09:15 WBC 9.5 RBC 4.02 Hgb 8.8 L Hct 31.9 L MCV 79 L MCH 21.9 L MCHC 27.6 L RDW Std Deviation 71.0 H Plt Count 126 L Neut % (Auto) 77 Lymph % (Auto) 12 [place] % (Auto) 10 Eos % (Auto) 0 Baso % (Auto) 0 Neut # (Auto) 7.3 Lymph # (Auto) 1.1 [place] # (Auto) 1.0 H Eos # (Auto) 0.0 Baso # (Auto) 0.0 Immature Gran # (Auto) 0.06 H Absolute Nucleated RBC 0.03 H Immature Gran % 1 H Nucleated RBC % 0 Puncture Site Right Radial ABG pH 7.37 D ABG pCO2 68 H ABG pO2 80 L ABG HCO3 39 H ABG O2 Saturation 97 ABG Base Excess 12 H FiO2 35 Sodium 142 Potassium 3.9 D Chloride 97 L Carbon Dioxide > 40.0 H Anion Gap 5 L BUN 19 Creatinine 0.8 Estim Creat Clear Calc 54.4 L eGFR > 60 BUN/Creatinine Ratio 24 H Glucose 101 Calculated Osmolality 285 Calcium 8.1 L Phosphorus 3.4 ABG Interpretation ABG results: 01/09/25 01/10/25 01/11/25 23:10 01:05 09:54 ABG pH 7.19 L* 7.29 L D 7.50 H D ABG pCO2 98 H* 83 H* D 68 H D ABG pO2 63 L 70 L 61 L ABG HCO3 37 H 40 H 53 H ABG O2 Saturation 88 L 94 93 ABG Base Excess 7 H 11 H 26 H 01/13/25 09:15 ABG pH 7.37 D ABG pCO2 68 H ABG pO2 80 L ABG HCO3 39 H ABG O2 Saturation 97 ABG Base Excess 12 H Quality Measures Quality Measures VTE prophylaxis Advance care planning discussed with:: other Assessment & Plan Assessment Current Active Medications: Generic Name Dose Route Start Last Admin Trade Name Freq PRN Reason Stop Dose Admin Acetaminophen 650 mg 01/10/25 01:50 01/12/25 10:52 Acetaminophen 325 Mg Tablet PO 02/09/25 01:49 650 mg Q6H PRN Administration PAIN SCALE 1-3 (mild Acetaminophen 650 mg 01/10/25 06:05 Acetaminophen 325 Mg Tablet PO 02/09/25 01:49 Q6H PRN Fever >100.4 Albuterol/Ipratropium 3 ml 01/10/25 07:00 01/13/25 13:52 Albuterol/Ipratropium (Duoneb) Rt Shanelle 3 Ml Nebu INH 02/09/25 06:59 3 ml Q6HRRT BRYNN Administration Furosemide 40 mg 01/12/25 09:00 01/13/25 09:05 Furosemide Inj 10 Mg/Ml 4ml Vial IVP 02/11/25 08:59 40 mg QDAY BRYNN Administration Acetazolamide Sodium 500 mg/ 50 mls @ 100 mls/hr 01/13/25 09:00 01/13/25 09:35 Sodium Chloride IV 02/12/25 08:59 Infused QDAY BRYNN Infusion Amiodarone HCl/Dextrose 360 mg in 200 mls @ 33.333 mls/hr 01/13/25 13:09 01/13/25 13:38 Nexterone Ivpb IV 01/13/25 19:08 33.333 mls/hr .Q6H ONE Administration Amiodarone HCl/Dextrose 360 mg in 200 mls @ 16.667 mls/hr 01/13/25 19:00 Nexterone Ivpb IV 01/14/25 18:59 .Q12H BRYNN Heparin Sodium/Dextrose 25,000 unit in 250 mls @ 10.003 mls/hr 01/13/25 14:30 Heparin In D5w Ivpb IV 01/27/25 14:29 .Q24H BRYNN Protocol 10.6 UNITS/KG/HR Meclizine HCl 25 mg 01/10/25 09:00 01/13/25 09:06 Meclizine Hcl 25 Mg Tablet PO 02/09/25 08:59 25 mg QDAY BRYNN Administration Prednisone 40 mg 01/10/25 11:15 01/13/25 09:06 Prednisone 20 Mg Tablet PO 02/09/25 11:14 40 mg QDAY BRYNN Administration Venlafaxine HCl 150 mg 01/10/25 09:00 01/13/25 09:06 Venlafaxine Xr 37.5 Mg Capcr PO 02/09/25 08:59 150 mg QDAY BRYNN Administration Plan The patient is an 89-year-old female with significant past medical history of COPD on 2L home oxygen at night, diabetes mellitus type 2, gastric ulcer, depression, valley fever, chronic vertigo with on and off anemia presented to ED with chief complaint of SOB that has been worsening for past several weeks. She was admitted to telemetry unit for further management of acute hypoxic hypercapnic respiratory failure 2/2 COPD exacerbation and severe symptomatic anemia. #New onset Afib 01/14/24 patient started to have Afib. Before that she did not have a history of Afib. [id number] score is 5. Plan: - amiodaron drip - heparin drip - cardiology is following, appreciate recommendations #Acute hypoxic and hypercapnic respiratory failure, improving #Pulmonary edema #New onset CHF exacerbation #COPD exacerbation The patient complained of SOB that has been worsening for past several weeks, reported having low energy, bilateral lower limb edema, easy fatigability and weakness. Physical examination was significant for bilateral lower limb pitting edema extending up to mid thigh. Chest x-ray was significant for moderate CHF later was found to have pulmonary edema. Initial ABG revealed pH 7.19 and PCO2 98. Last documented echo in 06/2023 showed EF 55-60% and moderate aortic stenosis. TTE 01/12/25: EF of 60 to 65%. Severe aortic stenosis with aortic valve area MAIKOL of 0.8 cm?, V-max 4.1 m/s, mean PG of 50 mmHg, peak PG of 70 mmHg. Plan: -Continue Lasix 40 mg IV qday -Continue BiPAP -Strict ins and outs -Duonebs Q6H scheduled -Continue prednisone 40 mg PO qday -Fluid restriction 1500 ml -Low sodium diet -Discontinued azithromycin 500 Mg IV 01/11-01/13 #Moderate aortic stenosis Physical examination reveals a 4 out of 6 systolic murmur best heard in the right upper sternal border Previous echocardiogram was done in June 2023 which revealed an EF of 55 to 60% with moderate AV stenosis with a mean pressure of 26 mmHg and a V-max of 3.2 m/s Likely playing a component in patient's shortness of breath as well as anemia TTE 01/12/25: EF of 60 to 65%. Severe aortic stenosis with aortic valve area MAIKOL of 0.8 cm?, V-max 4.1 m/s, mean PG of 50 mmHg, peak PG Plan: -Cardiology consulted and following, appreciate recommendations #Severe symptomatic microcytic anemia Likely secondary to mechanical destruction due to severe aortic stenosis Patient denied any dark bowel movement, or bloody on her stool, occult blood test was negative making GI blood loss less likely Physical examination was significant for severe crescendo-decrescendo midsystolic murmur at right second intercostal space Hemoglobin during presentation was 4.4, hematocrit 19.1, MCV 73, RDW 52.1 Iron panel showed low iron of 11, TIBC 451, 2% iron saturation, ferritin 11 Reticulocyte count high at 3.2% s/p 3 units of PRBC Plan: -Continue to monitor H&H, and transfuse PRBC if hemoglobin less than 7 -Avoid NSAIDs/ASA/chemical prophylaxis - GI consulted for 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 AM glucose has ranged 116-221, patient is currently on steroid as well. -No need for subQ insulin at this time -Monitor daily glucose on chem panel Health maintenance: Dispo: Patient admitted to telemetry unit for further management of acute hypoxic hypercapnic respiratory failures and severe symptomatic microcytic anemia Diet: Cardiac diet with fluid restriction of 1500 cc DVT prophylaxis: heparin drip CODE STATUS: DNR, okay to intubate if needed Plan of care discussed with attending Dr. Lu, PGY-[address] Quintanilla and PGY-[address] Grimm. Vero Petersen MD, PGY 1. Attending Provider Attestation/Addendum I reviewed labs, imaging, EKG, home medications and prior available records. Face to face evaluation was performed by me. I have personally examined the patient and discussed assessment and plan with the IM team. I reviewed the resident note and agree with the plan with exceptions as below. Please refer to my addendum note for the same date
--- NOTE | 2025-01-13 16:23 | PC.SS ---
Rounding Note: GI is consulting. Patient went into AFIB today. Plan is to diuresis the patient.
[2025-01-13 17:32] LABS: INR 1.2 (0.9-1.3); Partial Thromboplastin Time 23.6 Seconds (22.0-36.0); Prothrombin Time 13.4 Seconds (9.0-12.2)
[2025-01-13] MEDS: HEPARIN SOD INJ 5000 UNIT/ML VIAL 4000 UNIT IV (18:20)
[2025-01-13] MEDS: Heparin/D5w 25K 250 ML Ivpb 25,000 UNIT/250 ML BAG 10.003 UNIT IV (18:21)
--- NOTE | 2025-01-13 18:41 | PD.IMCONS ---
HPI Data of Consult Requesting Physician: Filipe Lu MD Primary Care Provider: Varun Diaz MD Consult Narrative Reason for consult: H/H 4.4/19.1 requiring blood transfusion History of present illness: 89 years of female I been consulted for iron saturation of 2% and presenting hemoglobin hematocrit on 01/09/2025 was 4.4 and 19.1 since then patient has been transfused patient has serious medical issues with aortic stenosis Acute hypoxic hypercapnic respiratory failure requiring BiPAP new onset atrial fibrillation with RVR on amiodarone drip and heparin as well as diabetes mellitus type 1 chronic COPD on 2 L nasal cannula at home [facility] valley fever chronic vertigo She presented on 2024 with shortness of breath requiring BiPAP support Been consulted for low hemoglobin hematocrit No history of any shayne melena hematemesis hematochezia or bright red bleeding per rectum cc:: cc: Filipe Lu MD Review of Systems Review of Systems Systems Reviewed: All systems reviewed, normal except as documented Past Medical History Surgical History OTHER SURGICAL HX: As in the history of present illness Meds Home Medications and Allergies Home Medications ?Medication ?Instructions ?Recorded ?Confirmed ?Type meclizine 25 mg tablet 25 mg PO QDAY PRN Dizziness 07/23/23 03/06/24 History buspirone 15 mg tablet 15 mg PO QDAY 03/06/24 03/06/24 History famotidine 10 mg tablet 10 mg PO QDAY 03/06/24 03/06/24 History losartan 25 mg tablet 25 mg PO QDAY 03/06/24 03/06/24 History venlafaxine 150 mg 150 mg PO BID 03/06/24 03/06/24 History capsule,extended release 24 hr Allergies Allergy/AdvReac Type Severity Reaction Status Date / Time ciprofloxacin Allergy Intermediate itching Verified 03/06/24 11:37 morphine Allergy Verified 03/06/24 11:37 vancomycin Allergy Verified 03/06/24 11:37 Exam Vital Signs Temp Pulse Resp BP Pulse Ox O2 Del Method O2 Flow Rate 97.7 F 74 28 H 103/63 95 BiPAP 4 01/13/25 16:00 01/13/25 18:18 01/13/25 18:18 01/13/25 16:00 01/13/25 18:18 01/13/25 16:00 01/13/25 16:00 FiO2 35 01/13/25 18:18 Constitutional Comments: Chronically ill-appearing Routine Respiratory Exam Comments: Required BiPAP support Results Labs 01/14/25 07:10 01/14/25 07:10 Labs: Short CBC 01/13/25 Range/Units 07:00 WBC 9.5 (3.6-11.0) Thou/mm3 Hgb 8.8 L (12.0-16.0) g/dL Hct 31.9 L (36.0-46.0) % Plt Count 126 L (140-440) Thou/mm3 BMP 01/13/25 07:00 Sodium 142 Potassium 3.9 D Chloride 97 L Carbon Dioxide > 40.0 H BUN 19 Creatinine 0.8 Glucose 101 Calcium 8.1 L ABG Interpretation ABG results: 01/09/25 01/10/25 01/11/25 23:10 01:05 09:54 ABG pH 7.19 L* 7.29 L D 7.50 H D ABG pCO2 98 H* 83 H* D 68 H D ABG pO2 63 L 70 L 61 L ABG HCO3 37 H 40 H 53 H ABG O2 Saturation 88 L 94 93 ABG Base Excess 7 H 11 H 26 H 01/13/25 09:15 ABG pH 7.37 D ABG pCO2 68 H ABG pO2 80 L ABG HCO3 39 H ABG O2 Saturation 97 ABG Base Excess 12 H Assessment and Plan Additional Assessment & Plan Additional Plan: # Acute anemia blood loss requiring transfusion in the setting of aortic stenosis and unexplained iron deficiency anemia Patient having intermittent bleeding, 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 Her general health at the moment is not conducive to perform any procedure under intravenous moderate sedation because of her respiratory status Recommendation is to transfuse as needed and wait for the opportunity when her respiratory function improves and at least perform an upper endoscopy to quickly fix the problem if there is 1 The best option would be to fix her aortic stenosis Other medical problems include # Acute hypoxic hypercapnic respiratory failure # COPD # Atrial fibrillation with RVR # Diabetes mellitus type 1 depression # Chronic vertigo # Depression Thank you very much for the opportunity to participate in the care of this patient
[2025-01-13] MEDS: AMIODARONE 360 MG IVPB 360 MG/200 ML BAG 16.667 MG IV (20:20)
[2025-01-14] VITALS (17 sets, daily range): BP systolic 119–138; BP diastolic 51–97; PULSE 60–82; RESP 16–95; TEMP 36.1–36.4; O2SAT 91–99
[2025-01-14] MEDS: ALBUTEROL/IPRATROPIUM (Duoneb) RT SOL 3 ML NEBU INH ×4 (00:19→19:39)
[2025-01-14 01:49] LABS: Partial Thromboplastin Time 54.7 Seconds (22.0-36.0)
[2025-01-14 07:38] LABS: Basophils % (Auto) 0 % (0-2.5); Eosinophils # (Auto) 0.1 Thou/mm3 (0.0-0.5); Eosinophils % (Auto) 1 % (0-10); Hematocrit 30.1 % (36.0-46.0); Immature Granulocytes % (Auto) 1 % (0-0); Immature Granulocytes Auto 0.08 Thou/mm3 (0.00-0.00); Lymphocytes # (Auto) 1.7 Thou/mm3 (1.0-4.8); Lymphocytes % (Auto) 17 % (10-50); Mean Corpuscular HGB Conc 27.6 g/dl (31.0-37.0); Mean Corpuscular Hemoglobin 22.2 pg (25.0-35.0); Mean Corpuscular Volume 81 fL (80-100); Monocytes # (Auto) 0.8 Thou/mm3 (0.0-0.8); Monocytes % (Auto) 8 % (0-12); Neutrophils # (Auto) 7.4 Thou/mm3 (1.8-7.7); Neutrophils % (Auto) 73 % (37-80); Nucleated Red Blood Cell # 0.03 Thou/mm3 (0.00-0.00); Nucleated Red Blood Cell % 0 /100 WBC (0); Platelet Count 123 Thou/mm3 (140-440); RDW Standard Deviation 72.5 fL (36.4-46.3); Red Blood Count 3.74 Miln/mm3 (4.00-5.20); White Blood Count 10.1 Thou/mm3 (3.6-11.0)
[2025-01-14 07:43] LABS: Hemoglobin 8.3 g/dL (12.0-16.0)
[2025-01-14 07:54] LABS: Anion Gap 6 (7-16); BUN/Creatinine Ratio 21 Ratio (12-20); Blood Urea Nitrogen 19 mg/dL (9-23); Chloride 97 mMol/L (98-107); Creatinine (Component) 0.9 mg/dL (0.6-1.3); Estimated Creatinine Clearance 47.1 mL/min (>60); Glucose 104 mg/dL (74-106); Magnesium 2.1 mg/dL (1.6-2.6); Osmolality,Calculated 283 (275-295); Phosphorous 2.8 mg/dL (2.4-5.1); Potassium 3.1 mMol/L (3.4-5.1); Sodium 141 mMol/L (136-145); eGFR > 60 See Note
[2025-01-14 08:18] LABS: Partial Thromboplastin Time 49.5 Seconds (22.0-36.0)
[2025-01-14] MEDS: AMIODARONE 360 MG IVPB 360 MG/200 ML BAG 16.667 MG IV (08:20)
[2025-01-14] MEDS: FUROSEMIDE INJ 10 MG/ML 4ML VIAL 40 MG IVP (09:09)
[2025-01-14] MEDS: ACETAzolaMIDE SOD 500 MG in SODIUM CHLORIDE 0.9% (Popper) 50 ML 100 MG IV (09:10)
[2025-01-14] MEDS: predniSONE 20 MG TABLET 40 MG PO (09:11)
[2025-01-14] MEDS: VENLAFAXINE XR 37.5 MG CAPCR 150 MG PO (09:11)
[2025-01-14] MEDS: MECLIZINE HCL 25 MG TABLET PO (09:11)
[2025-01-14] MEDS: HEPARIN SOD INJ 5000 UNIT/ML VIAL 2000 UNIT IVP (09:16)
[2025-01-14 09:18] LABS: Base Excess 14 (-3-3); HCO3 40 mEq/L (20-26); Inspired Oxygen, FIO2 35 %; O2 Saturation 95 % (91-98); PCO2 62 mmHg (32.0-48.0); PO2 70 mmHg (83-108); pH, Arterial 7.42 (7.35-7.45)
[2025-01-14 09:21] LABS: Allen Test Performed/OK; Puncture Site Right Radial
--- NOTE | 2025-01-14 09:40 | CHAP ---
Patient was sleeping. Prayed quietly by bed.
--- NOTE | 2025-01-14 10:00 | EKG_ITS ---
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
[2025-01-14] MEDS: POTASSIUM CHLORIDE 20 mEq TABCR 40 MEQ PO (10:02)
[2025-01-14] MEDS: IRON SUCROSE CPLX INJ 20 MG/ML VIAL 5 ML 100 MG IVP (10:13)
--- NOTE | 2025-01-14 10:14 | PD.RESPRO ---
Documentation for date of: 01/14/25 Subjective Subjective Interval history: Patient seen and examined at bedside. Currently on BiPAP, sleeping. Patient had atrial fibrillation with RVR yesterday, was started on amiodarone drip. Patient is currently on amiodarone drip, will transition to Diltiazem 30mg PO TID Consider additional Diltiazem 30 mg PO as needed for A Fib RVR. Currently patient on heparin drip for anticoagulation, will continue. Patient has hypokalemia today, potassium replaced by primary team. Renal function is stable, bicarb is improving. Will continue diuresing with Lasix 40 mg daily and Diamox 500 mg daily. Patient is -1 L in the last 24 hours, net hospitalization negative -8.8 L. Patient still has 1+ bilateral lower extremity edema, has improved remarkably, will continue diuresis. Patient is receiving IV iron infusions, day 4 today Continue BiPAP overnight Exam Vital Signs Temp Pulse Resp BP Pulse Ox O2 Del Method O2 Flow Rate 97.0 F 70 17 127/51 L 94 L BiPAP 4 01/14/25 08:00 01/14/25 09:09 01/14/25 08:00 01/14/25 09:09 01/14/25 08:00 01/14/25 08:00 01/14/25 08:00 FiO2 35 01/14/25 08:00 Narrative Exam Constitutional: Elderly female sleeping on BiPAP machine HEENT: Normocephalic, atraumatic, mucous membranes moist. CVS: Irregularly irregular, S1 and S2 present, + systolic murmur aortic area, no rubs or gallops . RESP: CTAB, no SOB, no rales. There is bilateral rhonchi with some wheezing GI: Normal BS, Nontender/Nondistended. MSK: Full range of motion, No trauma or deformities or masses. Skin: Resolved erythema, bilateral lower extremities with 1+ pitting edema bilaterally, significant edema-improving noted on dependent body parts. Neuro: AAOx3. 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 Sensation grossly intact. Psych: Appropriate mood and affect. Objective Labs 01/14/25 07:10 01/14/25 07:10 Labs: Laboratory Results - last 24 hr 01/13/25 01/14/25 01/14/25 16:17 00:37 07:10 WBC 10.1 RBC 3.74 L Hgb 8.3 L Hct 30.1 L MCV 81 MCH 22.2 L MCHC 27.6 L RDW Std Deviation 72.5 H Plt Count 123 L Neut % (Auto) 73 Lymph % (Auto) 17 [place] % (Auto) 8 Eos % (Auto) 1 Baso % (Auto) 0 Neut # (Auto) 7.4 Lymph # (Auto) 1.7 [place] # (Auto) 0.8 Eos # (Auto) 0.1 Baso # (Auto) 0.0 Immature Gran # (Auto) 0.08 H Absolute Nucleated RBC 0.03 H Immature Gran % 1 H Nucleated RBC % 0 PT 13.4 H INR 1.2 APTT 23.6 54.7 H D 49.5 H Puncture Site ABG pH ABG pCO2 ABG pO2 ABG HCO3 ABG O2 Saturation ABG Base Excess FiO2 Sodium 141 Potassium 3.1 L D Chloride 97 L Carbon Dioxide 38.0 H Anion Gap 6 L BUN 19 Creatinine 0.9 Estim Creat Clear Calc 47.1 L eGFR > 60 BUN/Creatinine Ratio 21 H Glucose 104 Calculated Osmolality 283 Calcium 8.0 L Phosphorus 2.8 Magnesium 2.1 01/14/25 09:12 WBC RBC Hgb Hct MCV MCH MCHC RDW Std Deviation Plt Count Neut % (Auto) Lymph % (Auto) [place] % (Auto) Eos % (Auto) Baso % (Auto) Neut # (Auto) Lymph # (Auto) [place] # (Auto) Eos # (Auto) Baso # (Auto) Immature Gran # (Auto) Absolute Nucleated RBC Immature Gran % Nucleated RBC % PT INR APTT Puncture Site Right Radial ABG pH 7.42 ABG pCO2 62 H ABG pO2 70 L ABG HCO3 40 H ABG O2 Saturation 95 ABG Base Excess 14 H FiO2 35 Sodium Potassium Chloride Carbon Dioxide Anion Gap BUN Creatinine Estim Creat Clear Calc eGFR BUN/Creatinine Ratio Glucose Calculated Osmolality Calcium Phosphorus Magnesium ABG Interpretation ABG results: 01/09/25 01/10/25 01/11/25 23:10 01:05 09:54 ABG pH 7.19 L* 7.29 L D 7.50 H D ABG pCO2 98 H* 83 H* D 68 H D ABG pO2 63 L 70 L 61 L ABG HCO3 37 H 40 H 53 H ABG O2 Saturation 88 L 94 93 ABG Base Excess 7 H 11 H 26 H 01/13/25 01/14/25 09:15 09:12 ABG pH 7.37 D 7.42 ABG pCO2 68 H 62 H ABG pO2 80 L 70 L ABG HCO3 39 H 40 H ABG O2 Saturation 97 95 ABG Base Excess 12 H 14 H Quality Measures Quality Measures VTE prophylaxis Advance care planning discussed with:: patient Assessment & Plan Assessment Current Active Medications: Generic Name Dose Route Start Last Admin Trade Name Freq PRN Reason Stop Dose Admin Acetaminophen 650 mg 01/10/25 01:50 01/12/25 10:52 Acetaminophen 325 Mg Tablet PO 02/09/25 01:49 650 mg Q6H PRN Administration PAIN SCALE 1-3 (mild Acetaminophen 650 mg 01/10/25 06:05 Acetaminophen 325 Mg Tablet PO 02/09/25 01:49 Q6H PRN Fever >100.4 Albuterol/Ipratropium 3 ml 01/10/25 07:00 01/14/25 06:30 Albuterol/Ipratropium (Duoneb) Rt Shanelle 3 Ml Nebu INH 02/09/25 06:59 3 ml Q6HRRT BRYNN Administration Furosemide 40 mg 01/12/25 09:00 01/14/25 09:09 Furosemide Inj 10 Mg/Ml 4ml Vial IVP 02/11/25 08:59 40 mg QDAY BRYNN Administration Acetazolamide Sodium 500 mg/ 50 mls @ 100 mls/hr 01/13/25 09:00 01/14/25 09:10 Sodium Chloride IV 02/12/25 08:59 100 mls/hr QDAY BRYNN Administration Amiodarone HCl/Dextrose 360 mg in 200 mls @ 16.667 mls/hr 01/13/25 19:00 01/14/25 08:20 Nexterone Ivpb IV 01/14/25 18:59 16.667 mls/hr .Q12H BRYNN Administration Heparin Sodium/Dextrose 25,000 unit in 250 mls @ 10.003 mls/hr 01/13/25 14:30 01/14/25 09:15 Heparin In D5w Ivpb IV 01/27/25 14:29 12.6 units/kg/hr .Q24H BRYNN 11.89 mls/hr Titration Protocol 10.6 UNITS/KG/HR Meclizine HCl 25 mg 01/10/25 09:00 01/14/25 09:11 Meclizine Hcl 25 Mg Tablet PO 02/09/25 08:59 25 mg QDAY BRYNN Administration Venlafaxine HCl 150 mg 01/10/25 09:00 01/14/25 09:11 Venlafaxine Xr 37.5 Mg Capcr PO 02/09/25 08:59 150 mg QDAY BRYNN Administration Plan Assessment and Plan: Summary: Ms. Viera is a 89-year-old female with significant past medical history of COPD on 2 L home oxygen at night, diabetes mellitus type 2, gastric ulcer, depression, valley fever, chronic vertigo and anemia presented to ED with chief complaint of SOB that has been worsening for past several weeks. Cardiology consulted secondary to CHF exacerbation and moderate to severe aortic stenosis. #Acute hypoxic and hypercapnic respiratory failure secondary to #Acute decompensated heart failure #Heart failure with preserved ejection fraction, EF 60 to 65% #Diastolic heart failure #Severe symptomatic anemia #COPD exacerbation Patient presented initially with worsening shortness of breath over the past several weeks, tiredness low energy, bilateral lower extremity edema. Patient had SpO2 77 on 3 L nasal cannula, ABG showed pH 7.19, pCO2 98 and hence patient was started on BiPAP. Patient denies any history of heart disease, has never seen a grappler. Patient was admitted in June 2023 for acute left femoral neck and cardiology was consulted to obtain preop cardiac clearance. Echocardiogram from 2022 showed EKG for this visit shows sinus rhythm, heart rate 89. No acute ST-T changes noted. Chest x-ray shows significant bilateral edema. On physical exam patient does have 4+ bilateral lower extremity edema Patient's hemoglobin on presentation 4.4, hematocrit 19.1, further investigation shows severe iron deficiency, iron 11, TIBC 451, iron saturation 2%, unsaturated iron binding 440, ferritin 11. 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 Patient had colonoscopy done per review of records on 03/06/2024, shows no AV malformations, or diffuse area of mildly erythematous mucosa was seen in descending colon, pathology for those showed normal colonic mucosa Patient denies any history of smoking, did have extensive exposure to secondhand smoke. Patient has been on home oxygen for at least 2 years, use albuterol inhaler. 01/13-Patient is -1 L net negative in the last 24 hours, Total hospitalization net negative -8.8 L Echocardiogram 01/12/25: Normal LV size and function with an EF of 60 to 65%. Mild to moderate LVH. Diastolic dysfunction stage I. Normal RV size and function. RVSP normal at 25 mmHg. Severe aortic stenosis with aortic valve area MAIKOL of 0.8 cm?, V-max 4.1 m/s, mean PG of 50 mmHg, peak PG of 70 mmHg. Mild MAC with mild MR and as well as mild TR. Mildly dilated LA. No pericardial effusion. Recommendations: -Continue Lasix 40 mg daily cautious diuresis considering patient has moderate to severe aortic stenosis. -Continue IV Iron Sucrose, replace IV Iron for 3-5 days due to severe symptomatic anemia has iron deficiency component. 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 daily -Patient has significant symptomatic anemia, has history of gastric ulcers, there is suspicion of heyde syndrome, was transfused 3 units PRBC, posttransfusion H&H stable. -Monitor for GI bleed, bleeding precautions. -Patient has significant iron deficiency, will benefit from iron supplementation. # New onset atrial fibrillation with rapid ventricular response EKG 01/13/2025 shows atrial fibrillation with RVR. [id number] score 5 Recommendations: -Continue amiodarone drip will transition to will transition to Diltiazem 30mg PO TID -Consider Diltiazem 30 mg PO as needed for A Fib RVR. -Continue heparin drip for anticoagulation -Continue telemonitoring #Severe aortic stenosis Patient's echocardiogram 2022 showed moderate AV stenosis, mean PG 26 mmHg, V-max 3.2 m/s. Patient has a significant systolic aortic murmur Patient's hemoglobin on presentation 4.4, hematocrit 19.1, further investigation shows severe iron deficiency, iron 11, TIBC 451, iron saturation 2%, unsaturated iron binding 440, ferritin 11. 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 Patient had colonoscopy done per review of records on 03/06/2024, shows no AV malformations, or diffuse area of mildly erythematous mucosa was seen in descending colon, pathology for those showed normal colonic mucosa Echocardiogram 01/12/25: Normal LV size and function with an EF of 60 to 65%. Mild to moderate LVH. Diastolic dysfunction stage I. Normal RV size and function. RVSP normal at 25 mmHg. Severe aortic stenosis with aortic valve area MAIKOL of 0.8 cm?, V-max 4.1 m/s, mean PG of 50 mmHg, peak PG of 70 mmHg. Mild MAC with mild MR and as well as mild TR. Mildly dilated LA. No pericardial effusion. 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 -Patient would likely outpatient workup once more stable for possible aortic valve replacement. #Electrolyte abnormalities #Hypokalemia Correct and replace electrolytes as needed, aggressively replace potassium and magnesium Keep potassium more than 4 and magnesium more than 2 # Metabolic alkalosis Patient likely has contraction alkalosis due to diuresis with IV Lasix, patient is still fluid overloaded. Was given Diamox 500 mg IV x 2 -01/11 -Start on Diamox 500 mg qday #Depression -Started on venlafaxine 150 Mg ER daily #Chronic vertigo -Started on meclizine 25 Mg daily #Diabetes mellitus type 2 A1c 5.6, patient's blood glucose on BMP in range of 140-180 Thank you for the consult and allowing to participate in the care of the patient. Cardiology will continue to follow. Case discussed with Attending Dr. Aguilar. Lisa Wilkerson PGY1 Disclaimer: This note was dictated by speech recognition. Minor errors in ceramic research engineer may be present due to voice recognition software. Attending Provider Attestation/Addendum I have personally seen and examined the patient separately on the above date of service and discussed the plan of care with the resident. I reviewed the resident Dr. Lisa Wilkerson consultation progress note and agree with the resident findings and plan in the note above and have also edited the documentation to reflect my findings and plan. Wenceslao Aguilar M.D. Interventional Cardiology
--- NOTE | 2025-01-14 13:43 | ESPR_ITS ---
<Statement entered by Mallory Quintanilla MD - 01/15/25 15:06> Patient was seen and examined by me personally. I have directly supervised and reviewed documentation by the team resident and agree with its findings with any exceptions or additional findings as below. Plan of care was discussed with the attending, Dr. Choudhury. Patient appeared somnolent this morning, was falling asleep quickly after waking to voice, therefore ABG was obtained which was stable from prior, pH 7.42, pCO2 62, pO2 70, HCO3 40. Will continue to diurese with 40 mg IV Lasix qday. Continues to have good output with more than 3L output in last 24 hours. Patient on amio and transitioned to diltiazem 30 mg TID. Continue heparin drip for now. Cardiology is considering cath this admission versus outpatient. Mallory Quintanilla, PGY-2 Documentation for date of: 01/14/25 Subjective Subjective Interval history: Patient was seen and examined by the bedside. No acute overnight events. Patient in the AM appeared slightly somnolent, repeat ABG did not show worsening of hypercapnia, consistent with previous level. EKG this AM showed sinus rhythm with premature atrial complexes. Cardiology is following, appreciate recomendations. Continues with amiodaron drip, heparin drip. GI consulted, suspected intermittent bleeding most likely due to AVM in the colon or small intestine recommended at least EGD after the improvement of her condition and recommended aortic stenosis repair. Will continue to try to wean her down the oxygen. Exam Vital Signs Temp Pulse Resp BP Pulse Ox O2 Del Method O2 Flow Rate 97.0 F 71 21 H 127/64 99 Nasal Cannula 4 01/14/25 12:00 01/14/25 13:10 01/14/25 13:10 01/14/25 12:00 01/14/25 13:10 01/14/25 12:00 01/14/25 13:10 FiO2 4 01/14/25 13:10 Narrative Exam Constitutional: Chronically ill-appearing female on BiPAP. Slightly somnolent. CVS: RRR, S1 and S2 present, 4/6 systolic murmur heard best at the right upper sternal border. RESP: CTAB, no SOB, no rales. GI: Normal BS, Nontender/Nondistended. MSK: Full range of motion, No trauma or deformities or masses. Skin: There is mild diffused erythema in the bilateral lower extremities with 1+ pitting edema bilaterally. 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 Open eye to the voice, responsive, able to speak full sentences. Psych: (AAO) x3 . Appropriate mood and affect. Objective Labs 01/15/25 05:30 01/15/25 05:30 Labs: Laboratory Results - last 24 hr 01/13/25 01/14/25 01/14/25 16:17 00:37 07:10 WBC 10.1 RBC 3.74 L Hgb 8.3 L Hct 30.1 L MCV 81 MCH 22.2 L MCHC 27.6 L RDW Std Deviation 72.5 H Plt Count 123 L Neut % (Auto) 73 Lymph % (Auto) 17 [place] % (Auto) 8 Eos % (Auto) 1 Baso % (Auto) 0 Neut # (Auto) 7.4 Lymph # (Auto) 1.7 [place] # (Auto) 0.8 Eos # (Auto) 0.1 Baso # (Auto) 0.0 Immature Gran # (Auto) 0.08 H Absolute Nucleated RBC 0.03 H Immature Gran % 1 H Nucleated RBC % 0 PT 13.4 H INR 1.2 APTT 23.6 54.7 H D 49.5 H Puncture Site ABG pH ABG pCO2 ABG pO2 ABG HCO3 ABG O2 Saturation ABG Base Excess FiO2 Sodium 141 Potassium 3.1 L D Chloride 97 L Carbon Dioxide 38.0 H Anion Gap 6 L BUN 19 Creatinine 0.9 Estim Creat Clear Calc 47.1 L eGFR > 60 BUN/Creatinine Ratio 21 H Glucose 104 Calculated Osmolality 283 Calcium 8.0 L Phosphorus 2.8 Magnesium 2.1 01/14/25 09:12 WBC RBC Hgb Hct MCV MCH MCHC RDW Std Deviation Plt Count Neut % (Auto) Lymph % (Auto) [place] % (Auto) Eos % (Auto) Baso % (Auto) Neut # (Auto) Lymph # (Auto) [place] # (Auto) Eos # (Auto) Baso # (Auto) Immature Gran # (Auto) Absolute Nucleated RBC Immature Gran % Nucleated RBC % PT INR APTT Puncture Site Right Radial ABG pH 7.42 ABG pCO2 62 H ABG pO2 70 L ABG HCO3 40 H ABG O2 Saturation 95 ABG Base Excess 14 H FiO2 35 Sodium Potassium Chloride Carbon Dioxide Anion Gap BUN Creatinine Estim Creat Clear Calc eGFR BUN/Creatinine Ratio Glucose Calculated Osmolality Calcium Phosphorus Magnesium ABG Interpretation ABG results: 01/09/25 01/10/25 01/11/25 23:10 01:05 09:54 ABG pH 7.19 L* 7.29 L D 7.50 H D ABG pCO2 98 H* 83 H* D 68 H D ABG pO2 63 L 70 L 61 L ABG HCO3 37 H 40 H 53 H ABG O2 Saturation 88 L 94 93 ABG Base Excess 7 H 11 H 26 H 01/13/25 01/14/25 09:15 09:12 ABG pH 7.37 D 7.42 ABG pCO2 68 H 62 H ABG pO2 80 L 70 L ABG HCO3 39 H 40 H ABG O2 Saturation 97 95 ABG Base Excess 12 H 14 H Quality Measures Quality Measures VTE prophylaxis Advance care planning discussed with:: other Assessment & Plan Assessment Current Active Medications: Generic Name Dose Route Start Last Admin Trade Name Freq PRN Reason Stop Dose Admin Acetaminophen 650 mg 01/10/25 01:50 01/12/25 10:52 Acetaminophen 325 Mg Tablet PO 02/09/25 01:49 650 mg Q6H PRN Administration PAIN SCALE 1-3 (mild Acetaminophen 650 mg 01/10/25 06:05 Acetaminophen 325 Mg Tablet PO 02/09/25 01:49 Q6H PRN Fever >100.4 Albuterol/Ipratropium 3 ml 01/10/25 07:00 01/14/25 13:08 Albuterol/Ipratropium (Duoneb) Rt Shanelle 3 Ml Nebu INH 02/09/25 06:59 3 ml Q6HRRT BRYNN Administration Furosemide 40 mg 01/12/25 09:00 01/14/25 09:09 Furosemide Inj 10 Mg/Ml 4ml Vial IVP 02/11/25 08:59 40 mg QDAY BRYNN Administration Acetazolamide Sodium 500 mg/ 50 mls @ 100 mls/hr 01/13/25 09:00 01/14/25 09:10 Sodium Chloride IV 02/12/25 08:59 100 mls/hr QDAY BRYNN Administration Amiodarone HCl/Dextrose 360 mg in 200 mls @ 16.667 mls/hr 01/13/25 19:00 01/14/25 08:20 Nexterone Ivpb IV 01/14/25 18:59 16.667 mls/hr .Q12H BRYNN Administration Heparin Sodium/Dextrose 25,000 unit in 250 mls @ 10.003 mls/hr 01/13/25 14:30 01/14/25 09:15 Heparin In D5w Ivpb IV 01/27/25 14:29 12.6 units/kg/hr .Q24H BRYNN 11.89 mls/hr Titration Protocol 10.6 UNITS/KG/HR Meclizine HCl 25 mg 01/10/25 09:00 01/14/25 09:11 Meclizine Hcl 25 Mg Tablet PO 02/09/25 08:59 25 mg QDAY BRYNN Administration Venlafaxine HCl 150 mg 01/10/25 09:00 01/14/25 09:11 Venlafaxine Xr 37.5 Mg Capcr PO 02/09/25 08:59 150 mg QDAY BRYNN Administration Plan The patient is an 89-year-old female with significant past medical history of COPD on 2L home oxygen at night, diabetes mellitus type 2, gastric ulcer, depression, valley fever, chronic vertigo with on and off anemia presented to ED with chief complaint of SOB that has been worsening for past several weeks. She was admitted to telemetry unit for further management of acute hypoxic hypercapnic respiratory failure 2/2 COPD exacerbation and severe symptomatic anemia. #New onset Afib 01/14/24 patient started to have Afib. Before that she did not have a history of Afib. [id number] score is 5. Plan: - amiodaron drip finished - heparin drip - cardiology is following, appreciate recommendations - diltiazem 30 tid #Drowsiness Possibly due to medical condition (severe anemia, hypoxia) and medication side effect. Saturates well on room air, responsive, open eyes to the voice. 01/13/25: ABG did not show worsened hypoxia or hypercapnia. Plan: - held meclizine #Acute hypoxic and hypercapnic respiratory failure, improving #Pulmonary edema #New onset CHF exacerbation #COPD exacerbation The patient complained of SOB that has been worsening for past several weeks, reported having low energy, bilateral lower limb edema, easy fatigability and weakness. Physical examination was significant for bilateral lower limb pitting edema extending up to mid thigh. Chest x-ray was significant for moderate CHF later was found to have pulmonary edema. Initial ABG revealed pH 7.19 and PCO2 98. Last documented echo in 06/2023 showed EF 55-60% and moderate aortic stenosis. TTE 01/12/25: EF of 60 to 65%. Severe aortic stenosis with aortic valve area MAIKOL of 0.8 cm?, V-max 4.1 m/s, mean PG of 50 mmHg, peak PG of 70 mmHg. 01/14/25: Discontinued prednisone 40 mg PO qday. Plan: -Continue Lasix 40 mg IV qday -Continue BiPAP -Strict ins and outs -Duonebs Q6H scheduled -Fluid restriction 1500 ml -Low sodium diet -Discontinued azithromycin 500 Mg IV 01/11-01/13 -Wean down oxygen as tolerated #Moderate aortic stenosis Physical examination reveals a 4 out of 6 systolic murmur best heard in the right upper sternal border Previous echocardiogram was done in June 2023 which revealed an EF of 55 to 60% with moderate AV stenosis with a mean pressure of 26 mmHg and a V-max of 3.2 m/s Likely playing a component in patient's shortness of breath as well as anemia TTE 01/12/25: EF of 60 to 65%. Severe aortic stenosis with aortic valve area MAIKOL of 0.8 cm?, V-max 4.1 m/s, mean PG of 50 mmHg, peak PG Plan: -Cardiology consulted and following, appreciate recommendations #Severe symptomatic microcytic anemia #Iron deficiency anemia Likely secondary to mechanical destruction due to severe aortic stenosis Patient denied any dark bowel movement, or bloody on her stool, occult blood test was negative making GI blood loss less likely Physical examination was significant for severe crescendo-decrescendo midsystolic murmur at right second intercostal space Hemoglobin during presentation was 4.4, hematocrit 19.1, MCV 73, RDW 52.1 Iron panel showed low iron of 11, TIBC 451, 2% iron saturation, ferritin 11 Reticulocyte count high at 3.2% s/p 3 units of PRBC Plan: -Continue to monitor H&H, and transfuse PRBC if hemoglobin less than 7 -Avoid NSAIDs/ASA/chemical prophylaxis - GI consulted for 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 AM glucose has ranged 116-221, patient is currently on steroid as well. -No need for subQ insulin at this time -Monitor daily glucose on chem panel Health maintenance: Dispo: Telemetry unit for further management of acute hypoxic hypercapnic respiratory failures and severe symptomatic microcytic anemia Diet: Cardiac diet with fluid restriction of 1500 cc DVT prophylaxis: heparin drip CODE STATUS: DNR, okay to intubate if needed Plan of care discussed with attending Dr. Choudhury, PGY-[address] Quintanilla and PGY-[address] Grimm. Vero Petersen MD, PGY 1. Attending Provider Attestation/Addendum I, Jane Choudhury DO, attest that I was physically present for the [place] portions of the service and evaluated the patient with the resident and I reviewed and discussed the case with the resident and agree with the resident's findings and plans of care as documented above Patient seen and evaluated this AM. She states she is doing well. She has been on continuous BiPap and reports discomfort of mask. Pt satting 92% on 2L/NC. Will place BiPap only for night time. ABG shows improvement of Co2 retention. H/H remains stable while heparin drip remains active. Switched to diltiazem for rate control by cardiology. Plans for possible cardiac angiogram as well. No interventions planned by GI at this time. FOBT was negative.
[2025-01-14 15:50] LABS: Partial Thromboplastin Time 86.8 Seconds (22.0-36.0)
[2025-01-14] MEDS: Heparin/D5w 25K 250 ML Ivpb 25,000 UNIT/250 ML BAG 10.003 UNIT IV (16:08)
--- NOTE | 2025-01-14 16:43 | PC.SS ---
Rounding Note: Plan is to continue diuresis patient with IV Lasix. Plan to wean oxygen from BI-PAP to nasal cannula. Possible d/c within 2 more days.
--- NOTE | 2025-01-14 20:44 | ESPR_ITS ---
Documentation for date of: 01/14/25 Subjective Subjective Interval history: Patient evaluated Hemoglobin hematocrit 8.3 and 31.1 Exam Vital Signs Temp Pulse Resp BP Pulse Ox O2 Del Method O2 Flow Rate 97.0 F 66 20 132/52 H 98 BiPAP 4 01/14/25 16:00 01/14/25 19:39 01/14/25 19:39 01/14/25 16:00 01/14/25 19:39 01/14/25 16:00 01/14/25 16:00 FiO2 35 01/14/25 19:39 Objective Labs 01/14/25 07:10 01/14/25 07:10 Labs: Laboratory Results - last 24 hr 01/14/25 01/14/25 01/14/25 00:37 07:10 09:12 WBC 10.1 RBC 3.74 L Hgb 8.3 L Hct 30.1 L MCV 81 MCH 22.2 L MCHC 27.6 L RDW Std Deviation 72.5 H Plt Count 123 L Neut % (Auto) 73 Lymph % (Auto) 17 [place] % (Auto) 8 Eos % (Auto) 1 Baso % (Auto) 0 Neut # (Auto) 7.4 Lymph # (Auto) 1.7 [place] # (Auto) 0.8 Eos # (Auto) 0.1 Baso # (Auto) 0.0 Immature Gran # (Auto) 0.08 H Absolute Nucleated RBC 0.03 H Immature Gran % 1 H Nucleated RBC % 0 APTT 54.7 H D 49.5 H Puncture Site Right Radial ABG pH 7.42 ABG pCO2 62 H ABG pO2 70 L ABG HCO3 40 H ABG O2 Saturation 95 ABG Base Excess 14 H FiO2 35 Sodium 141 Potassium 3.1 L D Chloride 97 L Carbon Dioxide 38.0 H Anion Gap 6 L BUN 19 Creatinine 0.9 Estim Creat Clear Calc 47.1 L eGFR > 60 BUN/Creatinine Ratio 21 H Glucose 104 Calculated Osmolality 283 Calcium 8.0 L Phosphorus 2.8 Magnesium 2.1 01/14/25 15:05 WBC RBC Hgb Hct MCV MCH MCHC RDW Std Deviation Plt Count Neut % (Auto) Lymph % (Auto) [place] % (Auto) Eos % (Auto) Baso % (Auto) Neut # (Auto) Lymph # (Auto) [place] # (Auto) Eos # (Auto) Baso # (Auto) Immature Gran # (Auto) Absolute Nucleated RBC Immature Gran % Nucleated RBC % APTT 86.8 H D Puncture Site ABG pH ABG pCO2 ABG pO2 ABG HCO3 ABG O2 Saturation ABG Base Excess FiO2 Sodium Potassium Chloride Carbon Dioxide Anion Gap BUN Creatinine Estim Creat Clear Calc eGFR BUN/Creatinine Ratio Glucose Calculated Osmolality Calcium Phosphorus Magnesium Impressions Impression: Anemia blood loss Acute hypoxic hypercapnic respiratory failure Possible CVA Conservative management of the patient with blood transfusion No invasive GI workup planned at this point ABG Interpretation ABG results: 01/09/25 01/10/25 01/11/25 23:10 01:05 09:54 ABG pH 7.19 L* 7.29 L D 7.50 H D ABG pCO2 98 H* 83 H* D 68 H D ABG pO2 63 L 70 L 61 L ABG HCO3 37 H 40 H 53 H ABG O2 Saturation 88 L 94 93 ABG Base Excess 7 H 11 H 26 H 01/13/25 01/14/25 09:15 09:12 ABG pH 7.37 D 7.42 ABG pCO2 68 H 62 H ABG pO2 80 L 70 L ABG HCO3 39 H 40 H ABG O2 Saturation 97 95 ABG Base Excess 12 H 14 H Assessment & Plan A&P Narrative # Acute anemia blood loss requiring transfusion in the setting of aortic stenosis and unexplained iron deficiency anemia Patient having intermittent bleeding, 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 Her general health at the moment is not conducive to perform any procedure under intravenous moderate sedation because of her respiratory status Recommendation is to transfuse as needed and wait for the opportunity when her respiratory function improves and at least perform an upper endoscopy to quickly fix the problem if there is 1 The best option would be to fix her aortic stenosis Other medical problems include # Acute hypoxic hypercapnic respiratory failure # COPD # Atrial fibrillation with RVR # Diabetes mellitus type 1 depression # Chronic vertigo # Depression Thank you very much for the opportunity to participate in the care of this patient Time Spent With Patient Time: Total time spent is greater than 50% in coordination of care (as documented) at patient's floor/unit and/or counseling patient:
[2025-01-14] MEDS: DILTIAZEM 30 MG TABLET PO (21:47)
[2025-01-14 23:49] LABS: Partial Thromboplastin Time 54.1 Seconds (22.0-36.0)
[2025-01-15] VITALS (67 sets, daily range): BP systolic 113–138; BP diastolic 49–68; PULSE 57–87; RESP 16–43; TEMP 36.1–37.2; O2SAT 89–100; BMI 36.8
[2025-01-15] MEDS: ALBUTEROL/IPRATROPIUM (Duoneb) RT SOL 3 ML NEBU INH ×3 (00:35→14:23)
[2025-01-15 06:19] LABS: Basophils % (Auto) 0 % (0-2.5); Eosinophils # (Auto) 0.2 Thou/mm3 (0.0-0.5); Eosinophils % (Auto) 2 % (0-10); Immature Granulocytes % (Auto) 1 % (0-0); Immature Granulocytes Auto 0.05 Thou/mm3 (0.00-0.00); Lymphocytes # (Auto) 1.3 Thou/mm3 (1.0-4.8); Lymphocytes % (Auto) 13 % (10-50); Mean Corpuscular HGB Conc 28.1 g/dl (31.0-37.0); Mean Corpuscular Hemoglobin 22.4 pg (25.0-35.0); Mean Corpuscular Volume 80 fL (80-100); Monocytes # (Auto) 0.8 Thou/mm3 (0.0-0.8); Monocytes % (Auto) 8 % (0-12); Neutrophils # (Auto) 7.3 Thou/mm3 (1.8-7.7); Neutrophils % (Auto) 76 % (37-80); Nucleated Red Blood Cell # 0.02 Thou/mm3 (0.00-0.00); Nucleated Red Blood Cell % 0 /100 WBC (0); Platelet Count 131 Thou/mm3 (140-440); RDW Standard Deviation 71.2 fL (36.4-46.3); Red Blood Count 4.02 Miln/mm3 (4.00-5.20); White Blood Count 9.5 Thou/mm3 (3.6-11.0)
[2025-01-15 06:44] LABS: INR 1.1 (0.9-1.3); Partial Thromboplastin Time 51.5 Seconds (22.0-36.0); Prothrombin Time 12.4 Seconds (9.0-12.2)
[2025-01-15 06:47] LABS: Anion Gap 7 (7-16); BUN/Creatinine Ratio 23 Ratio (12-20); Blood Urea Nitrogen 21 mg/dL (9-23); Calcium 8.2 mg/dL (8.3-10.6); Chloride 95 mMol/L (98-107); Creatinine (Component) 0.9 mg/dL (0.6-1.3); Estimated Creatinine Clearance 47.1 mL/min (>60); Glucose 136 mg/dL (74-106); Magnesium 2.1 mg/dL (1.6-2.6); Osmolality,Calculated 286 (275-295); Phosphorous 2.9 mg/dL (2.4-5.1); Potassium 2.8 mMol/L (3.4-5.1); Sodium 141 mMol/L (136-145); eGFR > 60 See Note
[2025-01-15] MEDS: POTASSIUM CHLORIDE 20 mEq TABCR 40 MEQ PO (08:22)
[2025-01-15] MEDS: VENLAFAXINE XR 37.5 MG CAPCR 150 MG PO (08:22)
[2025-01-15] MEDS: FUROSEMIDE INJ 10 MG/ML 4ML VIAL 40 MG IVP (08:22)
[2025-01-15] MEDS: ACETAzolaMIDE SOD 500 MG in SODIUM CHLORIDE 0.9% (Popper) 50 ML 100 MG IV (08:24)
[2025-01-15] MEDS: ACETAMINOPHEN 325 MG TABLET 650 MG PO (09:20)
[2025-01-15] MEDS: POTASSIUM CHL 10 mEq IVPB 10 MEQ/100 ML BAG 75 MEQ IV ×4 (09:21→14:10)
--- NOTE | 2025-01-15 10:25 | PD.RESPRO ---
Documentation for date of: 01/15/25 Subjective Subjective Interval history: Patient seen and examined at bedside, patient saturating well on nasal cannula 2 L, patient is short of breath, does have accessory muscle use. Patient was transitioned to diltiazem 30 mg p.o. 3 times daily, transition to diltiazem extended release 120 mg in a.m. Continue heparin drip for anticoagulation, patient has hypokalemia today, potassium replaced by primary team. Renal function is stable bicarb is stable, patient is on Diamox 500 mg and Lasix 40 mg IV. Patient is -2.3 L in the last 24 hours, net -10.885 L Exam Vital Signs Temp Pulse Resp BP Pulse Ox O2 Del Method O2 Flow Rate 96.9 F 71 16 138/68 H 94 L Nasal Cannula 3 01/15/25 08:00 01/15/25 08:22 01/15/25 08:00 01/15/25 08:22 01/15/25 08:00 01/15/25 08:00 01/15/25 08:00 FiO2 35 01/15/25 04:00 Narrative Exam Constitutional: Elderly female sleeping on BiPAP machine HEENT: Normocephalic, atraumatic, mucous membranes moist. CVS: Irregularly irregular, S1 and S2 present, + systolic murmur aortic area, no rubs or gallops . RESP: CTAB, no SOB, no rales. There is bilateral rhonchi with some wheezing GI: Normal BS, Nontender/Nondistended. MSK: Full range of motion, No trauma or deformities or masses. Skin: Resolved erythema, bilateral lower extremities with 1+ pitting edema bilaterally, significant edema-improving noted on dependent body parts. Neuro: AAOx3. 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 Sensation grossly intact. Psych: Appropriate mood and affect. Objective Labs 01/15/25 05:30 01/15/25 05:30 Labs: Laboratory Results - last 24 hr 01/14/25 01/14/25 01/15/25 15:05 22:23 05:30 WBC 9.5 RBC 4.02 Hgb 9.0 L Hct 32.0 L MCV 80 MCH 22.4 L MCHC 28.1 L RDW Std Deviation 71.2 H Plt Count 131 L Neut % (Auto) 76 Lymph % (Auto) 13 [place] % (Auto) 8 Eos % (Auto) 2 Baso % (Auto) 0 Neut # (Auto) 7.3 Lymph # (Auto) 1.3 [place] # (Auto) 0.8 Eos # (Auto) 0.2 Baso # (Auto) 0.0 Immature Gran # (Auto) 0.05 H Absolute Nucleated RBC 0.02 H Immature Gran % 1 H Nucleated RBC % 0 PT 12.4 H INR 1.1 APTT 86.8 H D 54.1 H D 51.5 H Sodium 141 Potassium 2.8 L Chloride 95 L Carbon Dioxide 39.0 H Anion Gap 7 BUN 21 Creatinine 0.9 Estim Creat Clear Calc 47.1 L eGFR > 60 BUN/Creatinine Ratio 23 H Glucose 136 H Calculated Osmolality 286 Calcium 8.2 L Phosphorus 2.9 Magnesium 2.1 ABG Interpretation ABG results: 01/09/25 01/10/25 01/11/25 23:10 01:05 09:54 ABG pH 7.19 L* 7.29 L D 7.50 H D ABG pCO2 98 H* 83 H* D 68 H D ABG pO2 63 L 70 L 61 L ABG HCO3 37 H 40 H 53 H ABG O2 Saturation 88 L 94 93 ABG Base Excess 7 H 11 H 26 H 01/13/25 01/14/25 09:15 09:12 ABG pH 7.37 D 7.42 ABG pCO2 68 H 62 H ABG pO2 80 L 70 L ABG HCO3 39 H 40 H ABG O2 Saturation 97 95 ABG Base Excess 12 H 14 H Quality Measures Quality Measures VTE prophylaxis Advance care planning discussed with:: patient Assessment & Plan Assessment Current Active Medications: Generic Name Dose Route Start Last Admin Trade Name Freq PRN Reason Stop Dose Admin Acetaminophen 650 mg 01/10/25 01:50 01/15/25 09:20 Acetaminophen 325 Mg Tablet PO 02/09/25 01:49 650 mg Q6H PRN Administration PAIN SCALE 1-3 (mild Acetaminophen 650 mg 01/10/25 06:05 Acetaminophen 325 Mg Tablet PO 02/09/25 01:49 Q6H PRN Fever >100.4 Albuterol/Ipratropium 3 ml 01/10/25 07:00 01/15/25 07:29 Albuterol/Ipratropium (Duoneb) Rt Shanelle 3 Ml Nebu INH 02/09/25 06:59 3 ml Q6HRRT BRYNN Administration Diltiazem HCl 30 mg 01/14/25 22:00 01/15/25 06:10 Diltiazem 30 Mg Tablet PO 02/13/25 21:59 Not Given TID BRYNN Furosemide 40 mg 01/12/25 09:00 01/15/25 08:22 Furosemide Inj 10 Mg/Ml 4ml Vial IVP 02/11/25 08:59 40 mg QDAY BRYNN Administration Acetazolamide Sodium 500 mg/ 50 mls @ 100 mls/hr 01/13/25 09:00 01/15/25 08:24 Sodium Chloride IV 02/12/25 08:59 100 mls/hr QDAY BRYNN Administration Heparin Sodium/Dextrose 25,000 unit in 250 mls @ 10.003 mls/hr 01/13/25 14:30 01/15/25 07:27 Heparin In D5w Ivpb IV 01/27/25 14:29 10.6 units/kg/hr .Q24H BRYNN 10.003 mls/hr Titration Protocol 10.6 UNITS/KG/HR Potassium Chloride 10 meq in 100 mls @ 100 mls/hr 01/15/25 07:50 01/15/25 09:21 Kcl Ivpb IV 01/15/25 11:49 75 mls/hr Q1H BRYNN Administration Meclizine HCl 25 mg 01/10/25 09:00 01/14/25 09:11 Meclizine Hcl 25 Mg Tablet PO 02/09/25 08:59 25 mg QDAY BRYNN Administration Venlafaxine HCl 150 mg 01/10/25 09:00 01/15/25 08:22 Venlafaxine Xr 37.5 Mg Capcr PO 02/09/25 08:59 150 mg QDAY BRYNN Administration Plan Assessment and Plan: Summary: Ms. Viera is a 89-year-old female with significant past medical history of COPD on 2 L home oxygen at night, diabetes mellitus type 2, gastric ulcer, depression, valley fever, chronic vertigo and anemia presented to ED with chief complaint of SOB that has been worsening for past several weeks. Cardiology consulted secondary to CHF exacerbation and moderate to severe aortic stenosis. #Acute hypoxic and hypercapnic respiratory failure secondary to #Acute decompensated heart failure #Heart failure with preserved ejection fraction, EF 60 to 65% #Diastolic heart failure #Severe symptomatic anemia #COPD exacerbation Patient presented initially with worsening shortness of breath over the past several weeks, tiredness low energy, bilateral lower extremity edema. Patient had SpO2 77 on 3 L nasal cannula, ABG showed pH 7.19, pCO2 98 and hence patient was started on BiPAP. Patient denies any history of heart disease, has never seen a community liaison. Patient was admitted in June 2023 for acute left femoral neck and cardiology was consulted to obtain preop cardiac clearance. Echocardiogram from 2022 showed EKG for this visit shows sinus rhythm, heart rate 89. No acute ST-T changes noted. Chest x-ray shows significant bilateral edema. On physical exam patient does have 4+ bilateral lower extremity edema Patient's hemoglobin on presentation 4.4, hematocrit 19.1, further investigation shows severe iron deficiency, iron 11, TIBC 451, iron saturation 2%, unsaturated iron binding 440, ferritin 11. 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 Patient had colonoscopy done per review of records on 03/06/2024, shows no AV malformations, or diffuse area of mildly erythematous mucosa was seen in descending colon, pathology for those showed normal colonic mucosa Patient denies any history of smoking, did have extensive exposure to secondhand smoke. Patient has been on home oxygen for at least 2 years, use albuterol inhaler. 01/15-Patient is -2 L net negative in the last 24 hours, Total hospitalization net negative -10.885 L Echocardiogram 01/12/25: Normal LV size and function with an EF of 60 to 65%. Mild to moderate LVH. Diastolic dysfunction stage I. Normal RV size and function. RVSP normal at 25 mmHg. Severe aortic stenosis with aortic valve area MAIKOL of 0.8 cm?, V-max 4.1 m/s, mean PG of 50 mmHg, peak PG of 70 mmHg. Mild MAC with mild MR and as well as mild TR. Mildly dilated LA. No pericardial effusion. Recommendations: -Continue Lasix 40 mg daily cautious diuresis considering patient has moderate to severe aortic stenosis. -Continue IV Iron Sucrose, replace IV Iron for 3-5 days due to severe symptomatic anemia has iron deficiency component. 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 daily -Patient has significant symptomatic anemia, has history of gastric ulcers, there is suspicion of heyde syndrome, was transfused 3 units PRBC, posttransfusion H&H stable. -Monitor for GI bleed, bleeding precautions. -Patient has significant iron deficiency, will benefit from iron supplementation. # New onset atrial fibrillation with rapid ventricular response EKG 01/13/2025 shows atrial fibrillation with RVR. [id number] score 5 Recommendations: -Continue Diltiazem 30mg PO TID today, transition to Diltiazem ER 120mg. -Consider Diltiazem 30 mg PO as needed for A Fib RVR. -Continue heparin drip for anticoagulation -Continue telemonitoring #Severe aortic stenosis Patient's echocardiogram 2022 showed moderate AV stenosis, mean PG 26 mmHg, V-max 3.2 m/s. Patient has a significant systolic aortic murmur Patient's hemoglobin on presentation 4.4, hematocrit 19.1, further investigation shows severe iron deficiency, iron 11, TIBC 451, iron saturation 2%, unsaturated iron binding 440, ferritin 11. 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 Patient had colonoscopy done per review of records on 03/06/2024, shows no AV malformations, or diffuse area of mildly erythematous mucosa was seen in descending colon, pathology for those showed normal colonic mucosa Echocardiogram 01/12/25: Normal LV size and function with an EF of 60 to 65%. Mild to moderate LVH. Diastolic dysfunction stage I. Normal RV size and function. RVSP normal at 25 mmHg. Severe aortic stenosis with aortic valve area MAIKOL of 0.8 cm?, V-max 4.1 m/s, mean PG of 50 mmHg, peak PG of 70 mmHg. Mild MAC with mild MR and as well as mild TR. Mildly dilated LA. No pericardial effusion. 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 -Patient would likely outpatient workup once more stable for possible aortic valve replacement. -Per GI patient is not stable for further workup currently will pursue outpatient workup as needed #Electrolyte abnormalities #Hypokalemia Correct and replace electrolytes as needed, aggressively replace potassium and magnesium Keep potassium more than 4 and magnesium more than 2 # Metabolic alkalosis Patient likely has contraction alkalosis due to diuresis with IV Lasix, patient is still fluid overloaded. Was given Diamox 500 mg IV x 2 -01/11 -Start on Diamox 500 mg qday #Depression -Started on venlafaxine 150 Mg ER daily #Chronic vertigo -Started on meclizine 25 Mg daily #Diabetes mellitus type 2 A1c 5.6, patient's blood glucose on BMP in range of 140-180 Thank you for the consult and allowing to participate in the care of the patient. Cardiology will continue to follow. Case discussed with Attending Dr. Aguilar. Lisa Wilkerson PGY1 Disclaimer: This note was dictated by speech recognition. Minor errors in time stamp assembler may be present due to voice recognition software. Attending Provider Attestation/Addendum I have personally seen and examined the patient separately on the above date of service and discussed the plan of care with the resident. I reviewed the resident Dr. Lisa Wilkerson consultation progress note and agree with the resident findings and plan in the note above and have also edited the documentation to reflect my findings and plan. Wenceslao Aguilar M.D. Interventional Cardiology
[2025-01-15] MEDS: DILTIAZEM 30 MG TABLET PO ×2 (13:14→21:57)
--- NOTE | 2025-01-15 14:52 | ESPR_ITS ---
<Statement entered by Mallory Quintainlla MD - 01/16/25 07:19> Patient was seen and examined by me personally. I have directly supervised and reviewed documentation by the team resident and agree with its findings with any exceptions or additional findings as below. Plan of care was discussed with the attending, Dr. Choudhury. Patient continues on BiPAP at night, weaning oxygen on nasal cannula during the day. She continues to have 2+ pitting edema on bilateral lower extremities, however this has significantly improved since the admission. Potassium continues to be low at 2.8 and was repleted with 40 mEq PO and 40 mE IV for a total of 80. Will continue acetazolamide 500 mg daily, Lasix 40 mg IV daily, fluid restrictions. Otherwise, for the afib patient is currently rate-controlled, and Cardiology recommended to change diltiazem dose from 30 mg TID to diltiazem ER 120 mg qday. Keep heparin drip on, as Cardio is considering diagnostic cath for the aortic stenosis. Mallory Quintanilla, PGY-2 Documentation for date of: 01/15/25 Subjective Subjective Interval history: Patient was seen and examined by the bedside. Overnight patient was on BiPAP, was weaned down to nasal cannula 2 L. She is net -2.3 L. Continues to be diuresed, continues to be on heparin drip. Continuing holding meclizine. Cardiology is following, will decide regarding performing a coronary angiogram. Will start Diltiazem 120 mg ER every day starting tomorrow, will stop diltiazem 30 mg TID today. Exam Vital Signs Temp Pulse Resp BP Pulse Ox O2 Del Method O2 Flow Rate 97.6 F 75 24 H 116/68 99 Nasal Cannula 2 01/15/25 11:38 01/15/25 14:24 01/15/25 14:24 01/15/25 13:14 01/15/25 14:24 01/15/25 11:38 01/15/25 14:24 FiO2 35 01/15/25 04:00 Narrative Exam Constitutional: Chronically ill-appearing female NC. Conversational. Coarse voice. CVS: RRR, S1 and S2 present, 4/6 systolic murmur heard best at the right upper sternal border. RESP: CTAB, no SOB, no rales. GI: Normal BS, Nontender/Nondistended. MSK: Full range of motion, No trauma or deformities or masses. Skin: There is mild diffused erythema in the lower ankle area with 1+ pitting edema bilaterally. 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 Able to speak full sentences. Psych: (AAO) x3 . Appropriate mood and affect. Objective Labs 01/16/25 04:47 01/16/25 04:47 Labs: Laboratory Results - last 24 hr 01/14/25 01/14/25 01/15/25 15:05 22:23 05:30 WBC 9.5 RBC 4.02 Hgb 9.0 L Hct 32.0 L MCV 80 MCH 22.4 L MCHC 28.1 L RDW Std Deviation 71.2 H Plt Count 131 L Neut % (Auto) 76 Lymph % (Auto) 13 [place] % (Auto) 8 Eos % (Auto) 2 Baso % (Auto) 0 Neut # (Auto) 7.3 Lymph # (Auto) 1.3 [place] # (Auto) 0.8 Eos # (Auto) 0.2 Baso # (Auto) 0.0 Immature Gran # (Auto) 0.05 H Absolute Nucleated RBC 0.02 H Immature Gran % 1 H Nucleated RBC % 0 PT 12.4 H INR 1.1 APTT 86.8 H D 54.1 H D 51.5 H Sodium 141 Potassium 2.8 L Chloride 95 L Carbon Dioxide 39.0 H Anion Gap 7 BUN 21 Creatinine 0.9 Estim Creat Clear Calc 47.1 L eGFR > 60 BUN/Creatinine Ratio 23 H Glucose 136 H Calculated Osmolality 286 Calcium 8.2 L Phosphorus 2.9 Magnesium 2.1 ABG Interpretation ABG results: 01/09/25 01/10/25 01/11/25 23:10 01:05 09:54 ABG pH 7.19 L* 7.29 L D 7.50 H D ABG pCO2 98 H* 83 H* D 68 H D ABG pO2 63 L 70 L 61 L ABG HCO3 37 H 40 H 53 H ABG O2 Saturation 88 L 94 93 ABG Base Excess 7 H 11 H 26 H 01/13/25 01/14/25 09:15 09:12 ABG pH 7.37 D 7.42 ABG pCO2 68 H 62 H ABG pO2 80 L 70 L ABG HCO3 39 H 40 H ABG O2 Saturation 97 95 ABG Base Excess 12 H 14 H Quality Measures Quality Measures VTE prophylaxis Advance care planning discussed with:: other Assessment & Plan Assessment Current Active Medications: Generic Name Dose Route Start Last Admin Trade Name Freq PRN Reason Stop Dose Admin Acetaminophen 650 mg 01/10/25 01:50 01/15/25 09:20 Acetaminophen 325 Mg Tablet PO 02/09/25 01:49 650 mg Q6H PRN Administration PAIN SCALE 1-3 (mild Acetaminophen 650 mg 01/10/25 06:05 Acetaminophen 325 Mg Tablet PO 02/09/25 01:49 Q6H PRN Fever >100.4 Albuterol/Ipratropium 3 ml 01/10/25 07:00 01/15/25 14:23 Albuterol/Ipratropium (Duoneb) Rt Shanelle 3 Ml Nebu INH 02/09/25 06:59 3 ml Q6HRRT BRYNN Administration Diltiazem HCl 30 mg 01/14/25 22:00 01/15/25 13:14 Diltiazem 30 Mg Tablet PO 02/13/25 21:59 30 mg TID BRYNN Administration Furosemide 40 mg 01/12/25 09:00 01/15/25 08:22 Furosemide Inj 10 Mg/Ml 4ml Vial IVP 02/11/25 08:59 40 mg QDAY BRYNN Administration Acetazolamide Sodium 500 mg/ 50 mls @ 100 mls/hr 01/13/25 09:00 01/15/25 08:24 Sodium Chloride IV 02/12/25 08:59 100 mls/hr QDAY BRYNN Administration Heparin Sodium/Dextrose 25,000 unit in 250 mls @ 10.003 mls/hr 01/13/25 14:30 01/15/25 07:27 Heparin In D5w Ivpb IV 01/27/25 14:29 10.6 units/kg/hr .Q24H BRYNN 10.003 mls/hr Titration Protocol 10.6 UNITS/KG/HR Meclizine HCl 25 mg 01/10/25 09:00 01/14/25 09:11 Meclizine Hcl 25 Mg Tablet PO 02/09/25 08:59 25 mg QDAY BRYNN Administration Venlafaxine HCl 150 mg 01/10/25 09:00 01/15/25 08:22 Venlafaxine Xr 37.5 Mg Capcr PO 02/09/25 08:59 150 mg QDAY BRYNN Administration Plan The patient is an 89-year-old female with significant past medical history of COPD on 2L home oxygen at night, diabetes mellitus type 2, gastric ulcer, depression, valley fever, chronic vertigo with on and off anemia presented to ED with chief complaint of SOB that has been worsening for past several weeks. She was admitted to telemetry unit for further management of acute hypoxic hypercapnic respiratory failure 2/2 COPD exacerbation and severe symptomatic anemia. #New onset Afib 01/13/25 patient started to have Afib. Before that she did not have a history of Afib. [id number] score is 5. 01/15/25: Patient is in sinus rhythm. Plan: - amiodaron drip finished 01/14/25 - diltiazem 30 mg TID to stop 01/15/2025 - diltiazem 120 mg once starting 01/16/2025 - heparin drip - cardiology is following, appreciate recommendations #Drowsiness Possibly due to medical condition (severe anemia, hypoxia) and medication side effect. Saturates well on room air, responsive, open eyes to the voice. 01/13/25: ABG did not show worsened hypoxia or hypercapnia. Plan: - hold meclizine #Acute hypoxic and hypercapnic respiratory failure, improving #Pulmonary edema #New onset CHF exacerbation #COPD exacerbation The patient complained of SOB that has been worsening for past several weeks, reported having low energy, bilateral lower limb edema, easy fatigability and weakness. Physical examination was significant for bilateral lower limb pitting edema extending up to mid thigh. Chest x-ray was significant for moderate CHF later was found to have pulmonary edema. Initial ABG revealed pH 7.19 and PCO2 98. Last documented echo in 06/2023 showed EF 55-60% and moderate aortic stenosis. TTE 01/12/25: EF of 60 to 65%. Severe aortic stenosis with aortic valve area MAIKOL of 0.8 cm?, V-max 4.1 m/s, mean PG of 50 mmHg, peak PG of 70 mmHg. 01/14/25: Discontinued prednisone 40 mg PO qday. Plan: -Continue Lasix 40 mg IV qday -Continue BiPAP -Strict ins and outs -Duonebs Q6H scheduled -Fluid restriction 1500 ml -Low sodium diet -Discontinued azithromycin 500 Mg IV 01/11-01/13 -Wean down oxygen as tolerated #Moderate aortic stenosis Physical examination reveals a 4 out of 6 systolic murmur best heard in the right upper sternal border Previous echocardiogram was done in June 2023 which revealed an EF of 55 to 60% with moderate AV stenosis with a mean pressure of 26 mmHg and a V-max of 3.2 m/s Likely playing a component in patient's shortness of breath as well as anemia TTE 01/12/25: EF of 60 to 65%. Severe aortic stenosis with aortic valve area MAIKOL of 0.8 cm?, V-max 4.1 m/s, mean PG of 50 mmHg, peak PG Plan: -Cardiology consulted and following, appreciate recommendations #Severe symptomatic microcytic anemia #Iron deficiency anemia Likely secondary to mechanical destruction due to severe aortic stenosis Patient denied any dark bowel movement, or bloody on her stool, occult blood test was negative making GI blood loss less likely Physical examination was significant for severe crescendo-decrescendo midsystolic murmur at right second intercostal space Hemoglobin during presentation was 4.4, hematocrit 19.1, MCV 73, RDW 52.1 Iron panel showed low iron of 11, TIBC 451, 2% iron saturation, ferritin 11 Reticulocyte count high at 3.2% s/p 3 units of PRBC Plan: -Continue to monitor H&H, and transfuse PRBC if hemoglobin less than 7 -Avoid NSAIDs/ASA/chemical prophylaxis - 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 AM glucose has ranged 116-221, patient is currently on steroid as well. -No need for subQ insulin at this time -Monitor daily glucose on chem panel Health maintenance: Dispo: Telemetry unit for further management of acute hypoxic hypercapnic respiratory failures and severe symptomatic microcytic anemia Diet: Cardiac diet with fluid restriction of 1500 cc DVT prophylaxis: heparin drip CODE STATUS: DNR, okay to intubate if needed Plan of care discussed with attending Dr. Choudhury, PGY-[address] Quintanilla and PGY-[address] Grimm. Vero Petersen MD, PGY 1. Attending Provider Attestation/Addendum I, Jane Choudhury DO, attest that I was physically present for the [place] portions of the service and evaluated the patient with the resident and I reviewed and discussed the case with the resident and agree with the resident's findings and plans of care as documented above Patient seen and evaluated this AM. She remains on 2L/NC. She states that she is doing well, but appears anxious. She states that she has to make more effort in pulling air with the nasal cannula than BiPap. Lungs are otherwise CTAB/L. B/l LE is improved and now 1+ pitting edema. Will f/u with cardiology recommendations. H/H stable on heparin drip.
--- NOTE | 2025-01-15 15:12 | PC.SS ---
Rounding Note: Plan is to continue diuresising patient. Cardiology consult pending to determine possible cardiac cath placement. Plan remains to wean oxygen requirements. Continue to replenish electrolytes.
[2025-01-15] MEDS: Heparin/D5w 25K 250 ML Ivpb 25,000 UNIT/250 ML BAG 10.003 UNIT IV (16:44)
--- NOTE | 2025-01-15 19:50 | PC.NURSE ---
REPORT GIVEN TO ICU, ELEANOR DIANE. PT TRANSFERRED TO TELE OVERFLOW TO ROOM 258.
--- NOTE | 2025-01-15 22:24 | ESPR_ITS ---
Documentation for date of: 01/15/25 Subjective Subjective Interval history: Patient evaluated Hemoglobin hematocrit 9.0 and 32.0 Patient's respiratory status remains precarious Exam Vital Signs Temp Pulse Resp BP Pulse Ox O2 Del Method O2 Flow Rate 97.8 F 80 20 132/57 H 95 Nasal Cannula 2 01/15/25 19:56 01/15/25 21:57 01/15/25 19:56 01/15/25 21:57 01/15/25 19:56 01/15/25 19:56 01/15/25 19:56 FiO2 35 01/15/25 04:00 Objective Labs 01/15/25 05:30 01/15/25 05:30 Labs: Laboratory Results - last 24 hr 01/14/25 01/15/25 22:23 05:30 WBC 9.5 RBC 4.02 Hgb 9.0 L Hct 32.0 L MCV 80 MCH 22.4 L MCHC 28.1 L RDW Std Deviation 71.2 H Plt Count 131 L Neut % (Auto) 76 Lymph % (Auto) 13 [place] % (Auto) 8 Eos % (Auto) 2 Baso % (Auto) 0 Neut # (Auto) 7.3 Lymph # (Auto) 1.3 [place] # (Auto) 0.8 Eos # (Auto) 0.2 Baso # (Auto) 0.0 Immature Gran # (Auto) 0.05 H Absolute Nucleated RBC 0.02 H Immature Gran % 1 H Nucleated RBC % 0 PT 12.4 H INR 1.1 APTT 54.1 H D 51.5 H Sodium 141 Potassium 2.8 L Chloride 95 L Carbon Dioxide 39.0 H Anion Gap 7 BUN 21 Creatinine 0.9 Estim Creat Clear Calc 47.1 L eGFR > 60 BUN/Creatinine Ratio 23 H Glucose 136 H Calculated Osmolality 286 Calcium 8.2 L Phosphorus 2.9 Magnesium 2.1 Impressions Impression: Anemia blood loss Acute respiratory hypoxic hypercapnic respiratory failure requiring BiPAP Patient not a candidate for any invasive GI workup ABG Interpretation ABG results: 01/09/25 01/10/25 01/11/25 23:10 01:05 09:54 ABG pH 7.19 L* 7.29 L D 7.50 H D ABG pCO2 98 H* 83 H* D 68 H D ABG pO2 63 L 70 L 61 L ABG HCO3 37 H 40 H 53 H ABG O2 Saturation 88 L 94 93 ABG Base Excess 7 H 11 H 26 H 01/13/25 01/14/25 09:15 09:12 ABG pH 7.37 D 7.42 ABG pCO2 68 H 62 H ABG pO2 80 L 70 L ABG HCO3 39 H 40 H ABG O2 Saturation 97 95 ABG Base Excess 12 H 14 H Assessment & Plan A&P Narrative # Acute anemia blood loss requiring transfusion in the setting of aortic stenosis and unexplained iron deficiency anemia Patient having intermittent bleeding, 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 Her general health at the moment is not conducive to perform any procedure under intravenous moderate sedation because of her respiratory status Recommendation is to transfuse as needed and wait for the opportunity when her respiratory function improves and at least perform an upper endoscopy to quickly fix the problem if there is 1 The best option would be to fix her aortic stenosis Other medical problems include # Acute hypoxic hypercapnic respiratory failure # COPD # Atrial fibrillation with RVR # Diabetes mellitus type 1 depression # Chronic vertigo # Depression Thank you very much for the opportunity to participate in the care of this patient Time Spent With Patient Time: Total time spent is greater than 50% in coordination of care (as documented) at patient's floor/unit and/or counseling patient:
[2025-01-16] VITALS (21 sets, daily range): BP systolic 118–145; BP diastolic 50–75; PULSE 68–86; RESP 16–41; TEMP 36.3–37.3; O2SAT 94–99
[2025-01-16 05:14] LABS: Basophils % (Auto) 0 % (0-2.5); Eosinophils # (Auto) 0.2 Thou/mm3 (0.0-0.5); Eosinophils % (Auto) 2 % (0-10); Hematocrit 33.6 % (36.0-46.0); Hemoglobin 9.3 g/dL (12.0-16.0); Immature Granulocytes % (Auto) 1 % (0-0); Immature Granulocytes Auto 0.13 Thou/mm3 (0.00-0.00); Lymphocytes # (Auto) 0.9 Thou/mm3 (1.0-4.8); Lymphocytes % (Auto) 10 % (10-50); Mean Corpuscular HGB Conc 27.7 g/dl (31.0-37.0); Mean Corpuscular Hemoglobin 22.7 pg (25.0-35.0); Mean Corpuscular Volume 82 fL (80-100); Monocytes # (Auto) 0.7 Thou/mm3 (0.0-0.8); Monocytes % (Auto) 7 % (0-12); Neutrophils # (Auto) 7.6 Thou/mm3 (1.8-7.7); Neutrophils % (Auto) 79 % (37-80); Nucleated Red Blood Cell % 0 /100 WBC (0); Platelet Count 138 Thou/mm3 (140-440); RDW Standard Deviation 73.5 fL (36.4-46.3); White Blood Count 9.6 Thou/mm3 (3.6-11.0)
[2025-01-16 05:39] LABS: Anion Gap 5 (7-16); BUN/Creatinine Ratio 18 Ratio (12-20); Blood Urea Nitrogen 18 mg/dL (9-23); Calcium 8.4 mg/dL (8.3-10.6); Chloride 97 mMol/L (98-107); Estimated Creatinine Clearance 42.1 mL/min (>60); Glucose 115 mg/dL (74-106); Osmolality,Calculated 284 (275-295); Phosphorous 2.7 mg/dL (2.4-5.1); Potassium 3.3 mMol/L (3.4-5.1); Sodium 141 mMol/L (136-145); eGFR 55 See Note
[2025-01-16] MEDS: ALBUTEROL/IPRATROPIUM (Duoneb) RT SOL 3 ML NEBU INH ×2 (06:21→13:49)
--- NOTE | 2025-01-16 09:00 | CHAP ---
Patient expressed gratitude for visit and prayer.
[2025-01-16] MEDS: VENLAFAXINE XR 37.5 MG CAPCR 150 MG PO (09:25)
[2025-01-16] MEDS: DILTIAZEM CD 120 MG CAPCR PO (09:26)
[2025-01-16] MEDS: ACETAMINOPHEN 325 MG TABLET 650 MG PO ×2 (09:26→23:28)
[2025-01-16] MEDS: ACETAzolaMIDE SOD 500 MG in SODIUM CHLORIDE 0.9% (Popper) 50 ML 100 MG IV (09:27)
[2025-01-16] MEDS: FUROSEMIDE INJ 10 MG/ML 4ML VIAL 40 MG IVP (09:28)
[2025-01-16] MEDS: POTASSIUM CHLORIDE 20 mEq TABCR 40 MEQ PO (09:28)
[2025-01-16] MEDS: POLYETHYLENE GLYCOL 17 GM PACKET PO (09:28)
--- NOTE | 2025-01-16 09:40 | ESPR_ITS ---
Documentation for date of: 01/16/25 Subjective Subjective Interval history: Patient seen and examined at bedside, labs and vitals reviewed, patient saturating well on nasal cannula 2 L. Patient was transitioned to diltiazem extended release 120 mg. Transition to Eliquis 5mg PO BID. Patient has hypokalemia today, potassium replaced by primary team. Renal function is stable bicarb is stable, patient is on Diamox 500 mg and Lasix 40 mg IV. Patient is - 500 mL in the last 24 hours, net -10.6 L Exam Vital Signs Temp Pulse Resp BP Pulse Ox O2 Del Method O2 Flow Rate 98.2 F 77 18 139/60 H 95 Nasal Cannula 2 01/16/25 04:00 01/16/25 09:28 01/16/25 06:22 01/16/25 09:28 01/16/25 06:22 01/16/25 04:00 01/16/25 06:22 FiO2 35 01/16/25 00:40 Narrative Exam Constitutional: Elderly female sleeping on NC HEENT: Normocephalic, atraumatic, mucous membranes moist. CVS: Irregularly irregular, S1 and S2 present, + systolic murmur aortic area, no rubs or gallops . RESP: CTAB, no SOB, no rales. There is bilateral rhonchi with some wheezing GI: Normal BS, Nontender/Nondistended. MSK: Full range of motion, No trauma or deformities or masses. Skin: Resolved erythema, bilateral lower extremities with 1+ pitting edema bilaterally, significant edema-improving noted on dependent body parts. Neuro: AAOx3. 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 Sensation grossly intact. Psych: Appropriate mood and affect. Objective Labs 01/16/25 04:47 01/16/25 04:47 Labs: Laboratory Results - last 24 hr 01/16/25 01/16/25 04:47 07:51 WBC 9.6 RBC 4.10 Hgb 9.3 L Hct 33.6 L MCV 82 MCH 22.7 L MCHC 27.7 L RDW Std Deviation 73.5 H Plt Count 138 L Neut % (Auto) 79 Lymph % (Auto) 10 [place] % (Auto) 7 Eos % (Auto) 2 Baso % (Auto) 0 Neut # (Auto) 7.6 Lymph # (Auto) 0.9 L [place] # (Auto) 0.7 Eos # (Auto) 0.2 Baso # (Auto) 0.0 Immature Gran # (Auto) 0.13 H Absolute Nucleated RBC 0.00 Immature Gran % 1 H Nucleated RBC % 0 APTT 49.0 H Sodium 141 Potassium 3.3 L D Chloride 97 L Carbon Dioxide 39.0 H Anion Gap 5 L BUN 18 Creatinine 1.0 Estim Creat Clear Calc 42.1 L eGFR 55 L BUN/Creatinine Ratio 18 Glucose 115 H Calculated Osmolality 284 Calcium 8.4 Phosphorus 2.7 Magnesium 2.0 ABG Interpretation ABG results: 01/09/25 01/10/25 01/11/25 23:10 01:05 09:54 ABG pH 7.19 L* 7.29 L D 7.50 H D ABG pCO2 98 H* 83 H* D 68 H D ABG pO2 63 L 70 L 61 L ABG HCO3 37 H 40 H 53 H ABG O2 Saturation 88 L 94 93 ABG Base Excess 7 H 11 H 26 H 01/13/25 01/14/25 09:15 09:12 ABG pH 7.37 D 7.42 ABG pCO2 68 H 62 H ABG pO2 80 L 70 L ABG HCO3 39 H 40 H ABG O2 Saturation 97 95 ABG Base Excess 12 H 14 H Quality Measures Quality Measures VTE prophylaxis Advance care planning discussed with:: patient Assessment & Plan Assessment Current Active Medications: Generic Name Dose Route Start Last Admin Trade Name Freq PRN Reason Stop Dose Admin Acetaminophen 650 mg 01/10/25 01:50 01/16/25 09:26 Acetaminophen 325 Mg Tablet PO 02/09/25 01:49 650 mg Q6H PRN Administration PAIN SCALE 1-3 (mild Acetaminophen 650 mg 01/10/25 06:05 Acetaminophen 325 Mg Tablet PO 02/09/25 01:49 Q6H PRN Fever >100.4 Albuterol/Ipratropium 3 ml 01/10/25 07:00 01/16/25 06:21 Albuterol/Ipratropium (Duoneb) Rt Shanelle 3 Ml Nebu INH 02/09/25 06:59 3 ml Q6HRRT BRYNN Administration Diltiazem HCl 120 mg 01/16/25 09:00 01/16/25 09:26 Diltiazem Cd 120 Mg Capcr PO 02/15/25 08:59 120 mg QDAY BRYNN Administration Furosemide 40 mg 01/12/25 09:00 01/16/25 09:28 Furosemide Inj 10 Mg/Ml 4ml Vial IVP 02/11/25 08:59 40 mg QDAY BRYNN Administration Acetazolamide Sodium 500 mg/ 50 mls @ 100 mls/hr 01/13/25 09:00 01/16/25 09:27 Sodium Chloride IV 02/12/25 08:59 100 mls/hr QDAY BRYNN Administration Heparin Sodium/Dextrose 25,000 unit in 250 mls @ 10.003 mls/hr 01/13/25 14:30 01/16/25 09:48 Heparin In D5w Ivpb IV 01/27/25 14:29 12.6 units/kg/hr .Q24H BRYNN 11.89 mls/hr Titration Protocol 10.6 UNITS/KG/HR Meclizine HCl 25 mg 01/10/25 09:00 01/14/25 09:11 Meclizine Hcl 25 Mg Tablet PO 02/09/25 08:59 25 mg QDAY BRYNN Administration Polyethylene Glycol 17 gm 01/15/25 15:15 01/16/25 09:28 Polyethylene Glycol 17 Gm Packet PO 02/14/25 15:14 17 gm QDAY BRYNN Administration Venlafaxine HCl 150 mg 01/10/25 09:00 01/16/25 09:25 Venlafaxine Xr 37.5 Mg Capcr PO 02/09/25 08:59 150 mg QDAY BRYNN Administration Plan Assessment and Plan: Summary: Ms. Viera is a 89-year-old female with significant past medical history of COPD on 2 L home oxygen at night, diabetes mellitus type 2, gastric ulcer, depression, valley fever, chronic vertigo and anemia presented to ED with chief complaint of SOB that has been worsening for past several weeks. Cardiology consulted secondary to CHF exacerbation and moderate to severe aortic stenosis. #Acute hypoxic and hypercapnic respiratory failure secondary to #Acute decompensated heart failure #Heart failure with preserved ejection fraction, EF 60 to 65% #Diastolic heart failure #Severe symptomatic anemia #COPD exacerbation Patient presented initially with worsening shortness of breath over the past several weeks, tiredness low energy, bilateral lower extremity edema. Patient had SpO2 77 on 3 L nasal cannula, ABG showed pH 7.19, pCO2 98 and hence patient was started on BiPAP. Patient denies any history of heart disease, has never seen a quantitative analyst. Patient was admitted in June 2023 for acute left femoral neck and cardiology was consulted to obtain preop cardiac clearance. Echocardiogram from 2022 showed EKG for this visit shows sinus rhythm, heart rate 89. No acute ST-T changes noted. Chest x-ray shows significant bilateral edema. On physical exam patient does have 4+ bilateral lower extremity edema Patient's hemoglobin on presentation 4.4, hematocrit 19.1, further investigation shows severe iron deficiency, iron 11, TIBC 451, iron saturation 2%, unsaturated iron binding 440, ferritin 11. 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 Patient had colonoscopy done per review of records on 03/06/2024, shows no AV malformations, or diffuse area of mildly erythematous mucosa was seen in descending colon, pathology for those showed normal colonic mucosa Patient denies any history of smoking, did have extensive exposure to secondhand smoke. Patient has been on home oxygen for at least 2 years, use albuterol inhaler. 01/15-Patient is -2 L net negative in the last 24 hours, Total hospitalization net negative -10.885 L Echocardiogram 01/12/25: Normal LV size and function with an EF of 60 to 65%. Mild to moderate LVH. Diastolic dysfunction stage I. Normal RV size and function. RVSP normal at 25 mmHg. Severe aortic stenosis with aortic valve area MAIKOL of 0.8 cm?, V-max 4.1 m/s, mean PG of 50 mmHg, peak PG of 70 mmHg. Mild MAC with mild MR and as well as mild TR. Mildly dilated LA. No pericardial effusion. Recommendations: -Continue Lasix 40 mg daily cautious diuresis considering patient has moderate to severe aortic stenosis. -Continue IV Iron Sucrose, replace IV Iron for 3-5 days due to severe symptomatic anemia has iron deficiency component. 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 daily -Patient has significant symptomatic anemia, has history of gastric ulcers, there is suspicion of heyde syndrome, was transfused 3 units PRBC, posttransfusion H&H stable. -Monitor for GI bleed, bleeding precautions. -Patient has significant iron deficiency, will benefit from iron supplementation. # New onset atrial fibrillation with rapid ventricular response EKG 01/13/2025 shows atrial fibrillation with RVR. [id number] score 5 Recommendations: -Continue Diltiazem 30mg PO TID today, transition to Diltiazem ER 120mg. -Consider Diltiazem 30 mg PO as needed for A Fib RVR. -Continue heparin drip for anticoagulation -Continue telemonitoring #Severe aortic stenosis Patient's echocardiogram 2022 showed moderate AV stenosis, mean PG 26 mmHg, V- max 3.2 m/s. Patient has a significant systolic aortic murmur Patient's hemoglobin on presentation 4.4, hematocrit 19.1, further investigation shows severe iron deficiency, iron 11, TIBC 451, iron saturation 2%, unsaturated iron binding 440, ferritin 11. 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 Patient had colonoscopy done per review of records on 03/06/2024, shows no AV malformations, or diffuse area of mildly erythematous mucosa was seen in descending colon, pathology for those showed normal colonic mucosa Echocardiogram 01/12/25: Normal LV size and function with an EF of 60 to 65%. Mild to moderate LVH. Diastolic dysfunction stage I. Normal RV size and function. RVSP normal at 25 mmHg. Severe aortic stenosis with aortic valve area MAIKOL of 0.8 cm?, V-max 4.1 m/s, mean PG of 50 mmHg, peak PG of 70 mmHg. Mild MAC with mild MR and as well as mild TR. Mildly dilated LA. No pericardial effusion. 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 -Patient would likely outpatient workup once more stable for possible aortic valve replacement. -Per GI patient is not stable for further workup currently will pursue outpatient workup as needed #Electrolyte abnormalities #Hypokalemia Correct and replace electrolytes as needed, aggressively replace potassium and magnesium Keep potassium more than 4 and magnesium more than 2 # Metabolic alkalosis Patient likely has contraction alkalosis due to diuresis with IV Lasix, patient is still fluid overloaded. Was given Diamox 500 mg IV x 2 -01/11 -Start on Diamox 500 mg qday #Depression -Started on venlafaxine 150 Mg ER daily #Chronic vertigo -Started on meclizine 25 Mg daily #Diabetes mellitus type 2 A1c 5.6, patient's blood glucose on BMP in range of 140-180 Thank you for the consult and allowing to participate in the care of the patient. Cardiology will continue to follow. Case discussed with Attending Dr. Aguilar. Lisa Wilkerson PGY1 Disclaimer: This note was dictated by speech recognition. Minor errors in costing analyst may be present due to voice recognition software. Attending Provider Attestation/Addendum I have personally seen and examined the patient separately on the above date of service and discussed the plan of care with the resident. I reviewed the resident Dr. Lisa Wilkerson consultation progress note and agree with the resident findings and plan in the note above and have also edited the documentation to reflect my findings and plan. Wenceslao Aguilar M.D. Interventional Cardiology
[2025-01-16] MEDS: HEPARIN SOD INJ 5000 UNIT/ML VIAL 2000 UNIT IV (09:46)
[2025-01-16] MEDS: POTASSIUM CHLORIDE 20 mEq TABCR PO (13:02)
--- NOTE | 2025-01-16 14:41 | PC.SS ---
Addendum entered by GILMAR May 01/16/25 15:06: [facility] able to accept the patient. Plan is to d/c the patient to SNF tomorrow. Antoinette at [facility] is aware. Addendum entered by GILMAR May 01/16/25 14:56: SS update: pending [facility] response from DON if able to accept the patient. Addendum entered by GILMAR May 01/16/25 14:54: PASRR completed. Addendum entered by GILMAR May 01/16/25 14:52: SNF inquiry sent via [employer]. Original Note: SS follow up: discusses with patient PT's recommendation for SNF, she was agreeable. Preferred [facility], [facility], or [facility].
[2025-01-16] MEDS: APIXABAN 2.5 MG TABLET 5 MG PO ×2 (15:17→20:32)
--- NOTE | 2025-01-16 15:48 | PD.RESPRO ---
Documentation for date of: 01/16/25 Subjective Subjective Interval history: Patient was seen and examined by the bedside. No acute overnight events. Saturates well on 2 L NC, resting in bed. Reports feeling of bloating in the stomach. Holding stool softeners for now. Discontinued heparin drip, started Eliquis. Pending SNF placement. Anticipate discharge in 24-48 hours. Exam Vital Signs Temp Pulse Resp BP Pulse Ox O2 Del Method O2 Flow Rate 98.8 F 73 18 124/63 99 Nasal Cannula 2 01/16/25 12:00 01/16/25 13:49 01/16/25 13:49 01/16/25 12:00 01/16/25 13:49 01/16/25 12:00 01/16/25 13:49 FiO2 35 01/16/25 00:40 Narrative Exam Constitutional: Chronically ill-appearing female NC. Conversational. Coarse voice. CVS: RRR, S1 and S2 present, 4/6 systolic murmur heard best at the right upper sternal border. RESP: CTAB, no SOB, no rales. GI: Normal BS, Nontender/Nondistended. MSK: Full range of motion, No trauma or deformities or masses. Skin: There is mild diffused erythema in the lower ankle area with 1+ pitting edema bilaterally. 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 Able to speak full sentences. Psych: (AAO) x3 . Appropriate mood and affect. Objective Labs 01/17/25 05:17 01/17/25 05:17 Labs: Laboratory Results - last 24 hr 01/16/25 01/16/25 04:47 07:51 WBC 9.6 RBC 4.10 Hgb 9.3 L Hct 33.6 L MCV 82 MCH 22.7 L MCHC 27.7 L RDW Std Deviation 73.5 H Plt Count 138 L Neut % (Auto) 79 Lymph % (Auto) 10 [place] % (Auto) 7 Eos % (Auto) 2 Baso % (Auto) 0 Neut # (Auto) 7.6 Lymph # (Auto) 0.9 L [place] # (Auto) 0.7 Eos # (Auto) 0.2 Baso # (Auto) 0.0 Immature Gran # (Auto) 0.13 H Absolute Nucleated RBC 0.00 Immature Gran % 1 H Nucleated RBC % 0 APTT 49.0 H Sodium 141 Potassium 3.3 L D Chloride 97 L Carbon Dioxide 39.0 H Anion Gap 5 L BUN 18 Creatinine 1.0 Estim Creat Clear Calc 42.1 L eGFR 55 L BUN/Creatinine Ratio 18 Glucose 115 H Calculated Osmolality 284 Calcium 8.4 Phosphorus 2.7 Magnesium 2.0 ABG Interpretation ABG results: 01/09/25 01/10/25 01/11/25 23:10 01:05 09:54 ABG pH 7.19 L* 7.29 L D 7.50 H D ABG pCO2 98 H* 83 H* D 68 H D ABG pO2 63 L 70 L 61 L ABG HCO3 37 H 40 H 53 H ABG O2 Saturation 88 L 94 93 ABG Base Excess 7 H 11 H 26 H 01/13/25 01/14/25 09:15 09:12 ABG pH 7.37 D 7.42 ABG pCO2 68 H 62 H ABG pO2 80 L 70 L ABG HCO3 39 H 40 H ABG O2 Saturation 97 95 ABG Base Excess 12 H 14 H Quality Measures Quality Measures VTE prophylaxis Advance care planning discussed with:: other Assessment & Plan Assessment Current Active Medications: Generic Name Dose Route Start Last Admin Trade Name Freq PRN Reason Stop Dose Admin Acetaminophen 650 mg 01/10/25 01:50 01/16/25 09:26 Acetaminophen 325 Mg Tablet PO 02/09/25 01:49 650 mg Q6H PRN Administration PAIN SCALE 1-3 (mild Acetaminophen 650 mg 01/10/25 06:05 Acetaminophen 325 Mg Tablet PO 02/09/25 01:49 Q6H PRN Fever >100.4 Albuterol/Ipratropium 3 ml 01/10/25 07:00 01/16/25 13:49 Albuterol/Ipratropium (Duoneb) Rt Shanelle 3 Ml Nebu INH 02/09/25 06:59 3 ml Q6HRRT BRYNN Administration Apixaban 5 mg 01/16/25 15:00 01/16/25 15:17 Apixaban 2.5 Mg Tablet PO 02/15/25 14:59 5 mg BID BRYNN Administration Diltiazem HCl 120 mg 01/16/25 09:00 01/16/25 09:26 Diltiazem Cd 120 Mg Capcr PO 02/15/25 08:59 120 mg QDAY BRYNN Administration Furosemide 40 mg 01/12/25 09:00 01/16/25 09:28 Furosemide Inj 10 Mg/Ml 4ml Vial IVP 02/11/25 08:59 40 mg QDAY BRYNN Administration Acetazolamide Sodium 500 mg/ 50 mls @ 100 mls/hr 01/13/25 09:00 01/16/25 09:27 Sodium Chloride IV 02/12/25 08:59 100 mls/hr QDAY BRYNN Administration Meclizine HCl 25 mg 01/10/25 09:00 01/14/25 09:11 Meclizine Hcl 25 Mg Tablet PO 02/09/25 08:59 25 mg QDAY BRYNN Administration Polyethylene Glycol 17 gm 01/15/25 15:15 01/16/25 09:28 Polyethylene Glycol 17 Gm Packet PO 02/14/25 15:14 17 gm QDAY BRYNN Administration Venlafaxine HCl 150 mg 01/10/25 09:00 01/16/25 09:25 Venlafaxine Xr 37.5 Mg Capcr PO 02/09/25 08:59 150 mg QDAY BRYNN Administration Plan The patient is an 89-year-old female with significant past medical history of COPD on 2L home oxygen at night, diabetes mellitus type 2, gastric ulcer, depression, valley fever, chronic vertigo with on and off anemia presented to ED with chief complaint of SOB that has been worsening for past several weeks. She was admitted to telemetry unit for further management of acute hypoxic hypercapnic respiratory failure 2/2 COPD exacerbation and severe symptomatic anemia. #New onset Afib, rate controlled 01/13/25 patient started to have Afib. Before that she did not have a history of Afib. [id number] score is 5. 01/15/25: Patient is in sinus rhythm. Plan: - amiodaron drip finished 01/14/25 - diltiazem 30 mg TID to stop 01/15/2025 - diltiazem 120 mg once starting 01/16/2025 - heparin drip discontinues 01/16/25 - eliquis 5 mg BID - cardiology is following, appreciate recommendations #Drowsiness Possibly due to medical condition (severe anemia, hypoxia) and medication side effect. Saturates well on room air, responsive, open eyes to the voice. 01/13/25: ABG did not show worsened hypoxia or hypercapnia. Plan: - hold meclizine #Acute hypoxic and hypercapnic respiratory failure, improving #Pulmonary edema #New onset CHF exacerbation #COPD exacerbation The patient complained of SOB that has been worsening for past several weeks, reported having low energy, bilateral lower limb edema, easy fatigability and weakness. Physical examination was significant for bilateral lower limb pitting edema extending up to mid thigh. Chest x-ray was significant for moderate CHF later was found to have pulmonary edema. Initial ABG revealed pH 7.19 and PCO2 98. Last documented echo in 06/2023 showed EF 55-60% and moderate aortic stenosis. TTE 01/12/25: EF of 60 to 65%. Severe aortic stenosis with aortic valve area MAIKOL of 0.8 cm?, V-max 4.1 m/s, mean PG of 50 mmHg, peak PG of 70 mmHg. 01/14/25: Discontinued prednisone 40 mg PO qday. Plan: -Continue Lasix 40 mg IV qday -Continue BiPAP -Strict ins and outs -Duonebs Q6H scheduled -Fluid restriction 1500 ml -Low sodium diet -Discontinued azithromycin 500 Mg IV 01/11-01/13 -Wean down oxygen as tolerated #Moderate aortic stenosis Physical examination reveals a 4 out of 6 systolic murmur best heard in the right upper sternal border Previous echocardiogram was done in June 2023 which revealed an EF of 55 to 60% with moderate AV stenosis with a mean pressure of 26 mmHg and a V-max of 3.2 m/s Likely playing a component in patient's shortness of breath as well as anemia TTE 01/12/25: EF of 60 to 65%. Severe aortic stenosis with aortic valve area MAIKOL of 0.8 cm?, V-max 4.1 m/s, mean PG of 50 mmHg, peak PG Plan: -Cardiology consulted and following, appreciate recommendations #Severe symptomatic microcytic anemia #Iron deficiency anemia Likely secondary to mechanical destruction due to severe aortic stenosis Patient denied any dark bowel movement, or bloody on her stool, occult blood test was negative making GI blood loss less likely Physical examination was significant for severe crescendo-decrescendo midsystolic murmur at right second intercostal space Hemoglobin during presentation was 4.4, hematocrit 19.1, MCV 73, RDW 52.1 Iron panel showed low iron of 11, TIBC 451, 2% iron saturation, ferritin 11 Reticulocyte count high at 3.2% s/p 3 units of PRBC Plan: -Continue to monitor H&H, and transfuse PRBC if hemoglobin less than 7 -Avoid NSAIDs/ASA/chemical prophylaxis - 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 AM glucose has ranged 116-221, patient is currently on steroid as well. -No need for subQ insulin at this time -Monitor daily glucose on chem panel Health maintenance: Dispo: Telemetry unit for further management of acute hypoxic hypercapnic respiratory failures and severe symptomatic microcytic anemia Diet: Cardiac diet with fluid restriction of 1500 cc DVT prophylaxis: Eliquis 5 mg BID CODE STATUS: DNR, okay to intubate if needed Plan of care discussed with attending Dr. Choudhury, PGY-[address] Quintanilla and PGY-[address] Grimm. Vero Petersen MD, PGY 1. -- ATTESTATION: I saw and examined the patient this morning, and I agree with current management stated by the resident. Will continue to monitor patient during their stay. Patient 79-year-old female that was admitted due to acute hypoxic respiratory failure secondary to CHF exacerbation. Patient presented with severe bilateral pitting edema as well as shortness of breath. Patient required BiPAP support earlier during the hospital stay and now only requires the BiPAP at night. Patient is back to baseline oxygen support at 2 L. Patient however developed A-fib with RVR for which we are treating with p.o. diltiazem and will transition him to Eliquis twice daily. Patient will likely be discharged in the next 24 to 48 hours. Disclaimer: Despite multiple revisions, due to the dictation software being used, the document bellow may not be free of grammatical errors including phonetic/typographic errors. However, this does not deter from our commitment to providing health care in the patient's best interest in mind. Dr. Delon Grimm, PGY-3 Attending Provider Attestation/Addendum IJane, , attest that I was physically present for the [place] portions of the service and evaluated the patient with the resident and I reviewed and discussed the case with the resident and agree with the resident's findings and plans of care as documented above Patient seen and evaluated this AM. No acute events overnight. Patient has been having BMs today. She denies any worsening dyspnea. She remains on 2L/NC. B/L pitting edema appears to have improved. Will continue with current management. Patient agreeable to SNF placement, anticipate DC within next 24hrs to SNF.
[2025-01-16 16:32] LABS: Partial Thromboplastin Time 34.4 Seconds (22.0-36.0)
--- NOTE | 2025-01-16 18:19 | ESPR_ITS ---
Documentation for date of: 01/16/25 Subjective Subjective Interval history: Hemoglobin hematocrit 9.3 and 33.6 Patient's respiratory status remains critical Not a candidate for any invasive GI workup Exam Vital Signs Temp Pulse Resp BP Pulse Ox O2 Del Method O2 Flow Rate 98.8 F 73 18 124/63 99 Nasal Cannula 2 01/16/25 12:00 01/16/25 13:49 01/16/25 13:49 01/16/25 12:00 01/16/25 13:49 01/16/25 12:00 01/16/25 13:49 FiO2 35 01/16/25 00:40 Objective Labs 01/16/25 04:47 01/16/25 04:47 Labs: Laboratory Results - last 24 hr 01/16/25 01/16/25 01/16/25 04:47 07:51 16:02 WBC 9.6 RBC 4.10 Hgb 9.3 L Hct 33.6 L MCV 82 MCH 22.7 L MCHC 27.7 L RDW Std Deviation 73.5 H Plt Count 138 L Neut % (Auto) 79 Lymph % (Auto) 10 [place] % (Auto) 7 Eos % (Auto) 2 Baso % (Auto) 0 Neut # (Auto) 7.6 Lymph # (Auto) 0.9 L [place] # (Auto) 0.7 Eos # (Auto) 0.2 Baso # (Auto) 0.0 Immature Gran # (Auto) 0.13 H Absolute Nucleated RBC 0.00 Immature Gran % 1 H Nucleated RBC % 0 APTT 49.0 H 34.4 D Sodium 141 Potassium 3.3 L D Chloride 97 L Carbon Dioxide 39.0 H Anion Gap 5 L BUN 18 Creatinine 1.0 Estim Creat Clear Calc 42.1 L eGFR 55 L BUN/Creatinine Ratio 18 Glucose 115 H Calculated Osmolality 284 Calcium 8.4 Phosphorus 2.7 Magnesium 2.0 Impressions Impression: # Anemia blood loss # Hypercapnic hypoxic respiratory failure Patient not a candidate for invasive GI workup ABG Interpretation ABG results: 01/09/25 01/10/25 01/11/25 23:10 01:05 09:54 ABG pH 7.19 L* 7.29 L D 7.50 H D ABG pCO2 98 H* 83 H* D 68 H D ABG pO2 63 L 70 L 61 L ABG HCO3 37 H 40 H 53 H ABG O2 Saturation 88 L 94 93 ABG Base Excess 7 H 11 H 26 H 01/13/25 01/14/25 09:15 09:12 ABG pH 7.37 D 7.42 ABG pCO2 68 H 62 H ABG pO2 80 L 70 L ABG HCO3 39 H 40 H ABG O2 Saturation 97 95 ABG Base Excess 12 H 14 H Assessment & Plan A&P Narrative # Acute anemia blood loss requiring transfusion in the setting of aortic stenosis and unexplained iron deficiency anemia Patient having intermittent bleeding, 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 Her general health at the moment is not conducive to perform any procedure under intravenous moderate sedation because of her respiratory status Recommendation is to transfuse as needed and wait for the opportunity when her respiratory function improves and at least perform an upper endoscopy to quickly fix the problem if there is 1 The best option would be to fix her aortic stenosis Other medical problems include # Acute hypoxic hypercapnic respiratory failure # COPD # Atrial fibrillation with RVR # Diabetes mellitus type 1 depression # Chronic vertigo # Depression Thank you very much for the opportunity to participate in the care of this patient Time Spent With Patient Time: Total time spent is greater than 50% in coordination of care (as documented) at patient's floor/unit and/or counseling patient:
[2025-01-17] VITALS (14 sets, daily range): BP systolic 122–153; BP diastolic 56–76; PULSE 66–88; RESP 15–28; TEMP 36.3–36.9; O2SAT 95–99; BMI 35.9
[2025-01-17 05:51] LABS: Basophils % (Auto) 0 % (0-2.5); Eosinophils # (Auto) 0.2 Thou/mm3 (0.0-0.5); Eosinophils % (Auto) 2 % (0-10); Hematocrit 32.1 % (36.0-46.0); Hemoglobin 8.9 g/dL (12.0-16.0); Immature Granulocytes % (Auto) 0 % (0-0); Immature Granulocytes Auto 0.04 Thou/mm3 (0.00-0.00); Lymphocytes # (Auto) 0.8 Thou/mm3 (1.0-4.8); Lymphocytes % (Auto) 8 % (10-50); Mean Corpuscular HGB Conc 27.7 g/dl (31.0-37.0); Mean Corpuscular Hemoglobin 23.5 pg (25.0-35.0); Mean Corpuscular Volume 85 fL (80-100); Monocytes # (Auto) 0.7 Thou/mm3 (0.0-0.8); Monocytes % (Auto) 8 % (0-12); Neutrophils % (Auto) 82 % (37-80); Nucleated Red Blood Cell % 0 /100 WBC (0); Platelet Count 157 Thou/mm3 (140-440); RDW Standard Deviation 85.5 fL (36.4-46.3); Red Blood Count 3.79 Miln/mm3 (4.00-5.20); White Blood Count 9.8 Thou/mm3 (3.6-11.0)
[2025-01-17 06:17] LABS: Alanine Aminotransferase 19 U/L (10-49); Albumin, Serum 3.4 gm/dL (3.4-4.8); Albumin/Globulin Ratio 1.3 (1.2-2.2); Alkaline Phosphatase 66 U/L (46-116); Anion Gap 5 (7-16); Aspartate Amino Transferase 25 U/L (0-34); BUN/Creatinine Ratio 19 Ratio (12-20); Bilirubin,Total 0.7 mg/dL (0.3-1.2); Blood Urea Nitrogen 15 mg/dL (9-23); Calcium 8.4 mg/dL (8.3-10.6); Calcium (Corrected) 8.9 mg/dL (8.5-10.1); Carbon Dioxide 36.1 mMol/L (20.0-31.0); Chloride 100 mMol/L (98-107); Creatinine (Component) 0.8 mg/dL (0.6-1.3); Globulin 2.7 gm/dL (2.3-3.5); Glucose 112 mg/dL (74-106); Osmolality,Calculated 283 (275-295); Phosphorous 2.7 mg/dL (2.4-5.1); Potassium 3.6 mMol/L (3.4-5.1); Sodium 141 mMol/L (136-145); Total Protein 6.1 gm/dL (5.7-8.2); eGFR > 60 See Note
[2025-01-17] MEDS: ALBUTEROL/IPRATROPIUM (Duoneb) RT SOL 3 ML NEBU INH ×3 (07:01→19:15)
[2025-01-17] MEDS: FUROSEMIDE INJ 10 MG/ML 4ML VIAL 40 MG IVP (09:04)
[2025-01-17] MEDS: ACETAzolaMIDE SOD 500 MG in SODIUM CHLORIDE 0.9% (Popper) 50 ML 100 MG IV (09:04)
[2025-01-17] MEDS: VENLAFAXINE XR 37.5 MG CAPCR 150 MG PO (09:05)
[2025-01-17] MEDS: APIXABAN 2.5 MG TABLET 5 MG PO ×2 (09:05→20:56)
[2025-01-17] MEDS: DILTIAZEM CD 120 MG CAPCR PO (09:05)
--- NOTE | 2025-01-17 15:16 | PC.SS ---
Addendum entered by Sahra Simons 01/17/25 16:44: SS received call from [facility]. [facility] is requesting BiPAP settings be sent 01/18/25. BiPAP will be ready at [facility] 01/18/25, per Carin. Addendum entered by Sahra Simons 01/17/25 16:38: SS informed by [facility] Carin she has not obtained BiPaP confirmation in the SNF, SS informed Carin it would not be a safe discharge and discharge to be cancelled. SS informed ELEANOR Baum, Dr. Choudhury, , and [facility] of cancellation. BiPAP measurements placed in patient's chart. Addendum entered by Sahrakirt Simons 01/17/25 16:18: SS informed by Dr. Choudhury patient is currently on BiPAP and needing to know if [facility] can accept patient with BiPAP. SS to submit BiPAP settings to [facility]. Carin-[facility] to confirm with staff if they have BiPaP available for the night. Otherwise, patient cannot return today to [facility]. SS awaiting response from [facility]. Original Note: SS informed during 1400 rounding patient will be discharging today. SS contacted ELEANOR Baum to determine if patient is appropriate for gurney transport or wheelchair. ELEANOR Baum stated patient would need gurney and is currently on 2L of oxygen. Carin-[facility] contacted and confirmed patient can return today. ABIGAIL obtained, transportation ETA pending.
--- NOTE | 2025-01-17 15:39 | ESDS_ITS ---
<Statement entered by Jane Choudhury DO - 01/18/25 09:06> I, Jane Choudhury DO, attest that I was physically present for the cabrera portions of the service and evaluated the patient with the resident and I reviewed and discussed the case with the resident and agree with the resident's findings and plans of care as documented above <Statement entered by Mallory Quintanilla MD - 01/18/25 07:53> Patient was seen and examined by me personally. I have reviewed the below documentation by the team resident and agree with its findings with any exceptions as below. Discharge plan was discussed with the attending, Dr. Choudhury. Discharge on 01/17 failed due to requiring BiPAP at facility which was not confirmed to be available. 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 Provider: Abel Geiger 01/14/25 08:28 Referral Physical Therapy Routine Comment: Physician Instructions: Attending Provider on DC: Vero Petersen MD Discharging Provider: Vero Petersen MD DS: Diagnosis Problem List Completed Was Problem List Reviewed/Reconciled?: Yes Hospital Course Hospital Course Hospital course: The patient is a 89-year-old female with a previous medical history of COPD on 2 L home oxygen, type 2 diabetes, peptic ulcer disease, depression, history of valley fever, chronic vertigo, anemia was brought to the ED on 01/09/2025 due to shortness of breath that has been worsening over the last several weeks. She also reported general weakness, easy fatigability, bilateral lower limb edema, lightheadedness. She denied bloody stools, chest pain, nausea, vomiting. In the ED blood pressure was elevated up to 190s/90s, in significant respiratory distress, initially was on 3 L nasal cannula, was switched to the BiPAP. Labs showed hemoglobin 4.4, hematocrit 9.1, MCV 73, PT 13, INR 1.2, PTT 20.3. ABGs showed pH of 7.19, pCO2 of 98, pO2 of 63. After BiPAP ABG showed pH of 7.29, pCO2 83, pO2 70. Chest x-ray showed moderate heart failure, repeat chest x-ray showed worsening of pulmonary edema with bilateral pleural effusions. She was given IV furosemide, was started on antibiotics, nitroglycerin patch was administered and was started on nitroglycerin drip. She also received 3 units of PRBC. She was admitted to telemetry for acute hypoxic hypercapnic respiratory failure secondary to COPD exacerbation, severe anemia and heart failure. Cardiology and gastroenterology specialists were consulted, workup revealed severe aortic stenosis, patient was continued to be intensively diuresed. On 01/13/2025 was noted the patient has A-fib with RVR, heart rate was in the 130s, hemodynamically stable. She was started on amiodarone drip and heparin drip, [id number] 5. The next day patient converted to sinus rhythm. Due to successful diuresis, patient continued to be negative balance. Patient's oxygen requirements have gone down. Patient started to wear BiPAP only at night. Per gastroenterology, patient may have intermittent bleeding due to possible AVM in the GI tract, but further workup is recommended after the aortic stenosis repair. Patient was switched from heparin drip to Eliquis for clot prevention, and was switched from amiodarone drip to diltiazem. Patient has also received IV iron infusions. Patient was seen and examined by the bedside and was medically cleared for discharge to SNF with discharge recommendations. Hospital diagnoses: #New onset Afib, rate controlled #Acute hypoxic and hypercapnic respiratory failure, improving #Anasarca #Pulmonary edema #New onset CHF exacerbation #COPD exacerbation #Moderate aortic stenosis #Severe symptomatic microcytic anemia #Iron deficiency anemia #Depression #Chronic vertigo #Diabetes mellitus type 2 Discharge recommendations: - Follow-up with your PCP in 1-2 weeks - Follow-up with Dr. Aguilar in 1-2 weeks - Repeat CMP in 1 week For the A-fib: - Take Diltiazem 120 mg ER per mouth once a day - Take Eliquis 5 mg per mouth twice a day For the COPD: - Wear BiPAP/CPAP at night 8pm-6am - Use supplemental oxygen as needed For the heart failure: - Take Lasix 40 mg per mouth daily - Take Diamox 250 mg per mouth every day - Stop taking Lasix 20mg every day For your anemia: - Take ferrous sulfate per mouth once every other day -Take the rest of your medications as planned CHF Instructions: - Please ensure you have a weighing scale, 2 gram sodium restriction, 2L fluid restriction - Please note your weight on the discharge paperwork prior to leaving - Every morning after you wake up and urinate, please weigh yourself, and document the date and the weight. - If your weight increases by 2 pounds in 1 day or by 5 pounds in a week, call your Forensic Economist. - If you notice shortness of breath, having to use more pillows to prop your head up when you sleep, waking up short of breath, clothes fitting tighter, swelling your legs, decreased urination, please call. If any symptoms are severe, go to the Emergency Department. - Avoid using medications called NSAIDs (also known as nonsteroidal anti- inflammatory drugs), such as ibuprofen, Motrin, Aleve, Advil, naproxen. - Avoid using canned vegetables, canned soups, frozen dinners as these tend to have a lot of salt. Plan of care discussed with attending Dr. Choudhury, PGY-[address] Quintanilla. Vero Petersen MD, PGY 1. Time Spent with Patient Time attestation: Total time spent providing and/or coordinating discharge services: Time spent: Greater than 30 minutes Exam Vital Signs Temp Pulse Resp BP Pulse Ox O2 Del Method O2 Flow Rate 97.6 F 73 19 153/76 H 95 Nasal Cannula 2 01/17/25 11:54 01/17/25 13:22 01/17/25 13:22 01/17/25 11:54 01/17/25 13:22 01/17/25 11:54 01/17/25 13:10 FiO2 35 01/17/25 13:22 Narrative Exam Constitutional: Chronically ill-appearing female NC. Conversational. Coarse voice. CVS: RRR, S1 and S2 present, 4/6 systolic murmur heard best at the right upper sternal border. RESP: CTAB, no SOB, no rales. GI: Normal BS, Nontender/Nondistended. MSK: Full range of motion, No trauma or deformities or masses. Skin: Erythema in the lower ankle area almost resolved, ankle skin wrinkled, trace ankle edema bilaterally. Neuro: rn hematology II-XII grossly intact. Able to speak full sentences. Psych: (AAO) x3 . Appropriate mood and affect. Discharge Plan Plan Patient Disposition: Xfer Skilled Nsg Fac (SNF) Patient condition on transfer: Stable Care Plan Goals: Discharge recommendations: - Follow-up with your PCP in 1-2 weeks - Follow-up with Dr. Aguilar in 1 week - Repeat CMP in 1 week For the A-fib: - Take Diltiazem 120 mg ER per mouth once a day - Take Eliquis 5 mg per mouth twice a day For the COPD: - Wear BiPAP/CPAP at night 8pm-6am - Use supplemental oxygen as needed For the heart failure: - Take Lasix 40 mg per mouth daily - Take Diamox 250 mg per mouth every day for 30 days - Stop taking Lasix 20mg every day For your anemia: - Take ferrous sulfate per mouth once every other day -Take the rest of your medications as planned CHF Instructions: - Please ensure you have a weighing scale, 2 gram sodium restriction, 2L fluid restriction - Please note your weight on the discharge paperwork prior to leaving - Every morning after you wake up and urinate, please weigh yourself, and document the date and the weight. - If your weight increases by 2 pounds in 1 day or by 5 pounds in a week, call your Forensic Economist. - If you notice shortness of breath, having to use more pillows to prop your head up when you sleep, waking up short of breath, clothes fitting tighter, swelling your legs, decreased urination, please call. If any symptoms are severe, go to the Emergency Department. - Avoid using medications called NSAIDs (also known as nonsteroidal anti-inflammatory drugs), such as ibuprofen, Motrin, Aleve, Advil, naproxen. - Avoid using canned vegetables, canned soups, frozen dinners as these tend to have a lot of salt. Prescriptions/Referrals Prescriptions/Med Rec: New diltiazem HCl 120 mg capsule,extended release 12 hr 120 mg PO QDAY 30 Days Qty: 30 0RF Eliquis 5 mg tablet 5 mg PO BID 30 Days Qty: 60 0RF ferrous sulfate 324 mg (65 mg iron) tablet,delayed release (DR/EC) 324 mg PO Q OTHER DAY 30 Days Qty: 15 0RF acetazolamide 250 mg tablet 250 mg PO QDAY 30 Days Qty: 30 0RF Continued meclizine 25 mg tablet 25 mg PO QDAY PRN (Reason: Dizziness) Patient Comments: Take 1 tablet oral once a day as needed famotidine 10 mg Tablet 10 mg PO QDAY venlafaxine 150 mg capsule,extended release 24hr 150 mg PO BID Patient Comments: TAKE 1 CAPSULE (150 MG TOTAL) TWO TIMES DAILY BY MOUTH losartan 25 mg Tablet 25 mg PO QDAY buspirone 15 mg Tablet 15 mg PO QDAY albuterol sulfate 90 mcg/actuation HFA aerosol inhaler 2 inh inhalation QID PRN (Reason: shortness of breath or wheezing) Qty: 8.5 0RF Changed furosemide [Lasix] 20 mg tablet 40 mg PO QDAY Qty: 30 0RF Referrals: Wenceslao Aguilar MD [Physician] - Varun Diaz MD [Primary Care Provider] - Patient/Caregiver Discharge Instructions Education Materials: Aortic Stenosis, Aortic Valve Stenosis Dc, ED Heart Disease Education Print Language: Serbian Stand Alone Forms: Joycelyn Award Info., Patient Portal Info Letter Discharge Order Discharge Orders: Discharge (Routine); Ordered 01/17/25 Ordered By: Mallory Quintanilla Quality Discharge Quality Measures VTE prophylaxis
--- NOTE | 2025-01-17 16:49 | ESPR_ITS ---
<Statement entered by Mallory Quintanilla MD - 01/18/25 07:59> Patient was seen and examined by me personally. I have directly supervised and reviewed documentation by the team resident and agree with its findings with any exceptions or additional findings as below. Plan of care was discussed with the attending, Dr. Choudhury. Patient seen on nasal cannula, leg swelling is significantly reduced and improved since the admission, and patient is stable for discharge. However will need to confirm BiPAP is available at the SNF for patient to wear at night. Reduced acetazolamide dose from 500 to 250 mg daily. Mallory Quintanilla, PGY-2 Documentation for date of: 01/17/25 Subjective Subjective Interval history: Patient was seen and examined by the bedside. No acute overnight events. Patient reports feeling burning pain in the anal area due to irritation after bowel movements. Ordered lidocaine cream for pain relief. Saturates adequately on 2L NC. Diamox dose was decreased to 250 mg qday. Pending SNF placement. Exam Vital Signs Temp Pulse Resp BP Pulse Ox O2 Del Method O2 Flow Rate 98.0 F 71 15 131/59 H 96 BiPAP 2 01/17/25 16:00 01/17/25 16:00 01/17/25 16:00 01/17/25 16:00 01/17/25 16:00 01/17/25 16:00 01/17/25 16:00 FiO2 35 01/17/25 16:00 Narrative Exam Constitutional: Chronically ill-appearing female NC. Conversational. Coarse voice. CVS: RRR, S1 and S2 present, 4/6 systolic murmur heard best at the right upper sternal border. RESP: CTAB, no SOB, no rales. GI: Normal BS, Nontender/Nondistended. MSK: Full range of motion, No trauma or deformities or masses. Skin: Erythema in the lower ankle area almost resolved, ankle skin wrinkled, trace ankle edema bilaterally. Neuro: high tension tester II-XII grossly intact. Able to speak full sentences. Psych: (AAO) x3 . Appropriate mood and affect. Objective Labs 01/18/25 04:45 01/18/25 04:45 Labs: Laboratory Results - last 24 hr 01/16/25 01/17/25 16:02 05:17 WBC 9.8 RBC 3.79 L Hgb 8.9 L Hct 32.1 L MCV 85 MCH 23.5 L MCHC 27.7 L RDW Std Deviation 85.5 H Plt Count 157 Neut % (Auto) 82 H Lymph % (Auto) 8 L Crane % (Auto) 8 Eos % (Auto) 2 Baso % (Auto) 0 Neut # (Auto) 8.0 H Lymph # (Auto) 0.8 L Crane # (Auto) 0.7 Eos # (Auto) 0.2 Baso # (Auto) 0.0 Immature Gran # (Auto) 0.04 H Absolute Nucleated RBC 0.00 Immature Gran % 0 Nucleated RBC % 0 APTT 34.4 D Sodium 141 Potassium 3.6 Chloride 100 Carbon Dioxide 36.1 H Anion Gap 5 L BUN 15 Creatinine 0.8 Estim Creat Clear Calc 53.0 L eGFR > 60 BUN/Creatinine Ratio 19 Glucose 112 H Calculated Osmolality 283 Calcium 8.4 Corrected Calcium 8.9 Phosphorus 2.7 Magnesium 2.0 Total Bilirubin 0.7 AST 25 ALT 19 Alkaline Phosphatase 66 Total Protein 6.1 Albumin 3.4 Globulin 2.7 Albumin/Globulin Ratio 1.3 ABG Interpretation ABG results: 01/09/25 01/10/25 01/11/25 23:10 01:05 09:54 ABG pH 7.19 L* 7.29 L D 7.50 H D ABG pCO2 98 H* 83 H* D 68 H D ABG pO2 63 L 70 L 61 L ABG HCO3 37 H 40 H 53 H ABG O2 Saturation 88 L 94 93 ABG Base Excess 7 H 11 H 26 H 01/13/25 01/14/25 09:15 09:12 ABG pH 7.37 D 7.42 ABG pCO2 68 H 62 H ABG pO2 80 L 70 L ABG HCO3 39 H 40 H ABG O2 Saturation 97 95 ABG Base Excess 12 H 14 H Quality Measures Quality Measures VTE prophylaxis Advance care planning discussed with:: other Assessment & Plan Assessment Current Active Medications: Generic Name Dose Route Start Last Admin Trade Name Freq PRN Reason Stop Dose Admin Acetaminophen 650 mg 01/10/25 01:50 01/16/25 23:28 Acetaminophen 325 Mg Tablet PO 02/09/25 01:49 650 mg Q6H PRN Administration PAIN SCALE 1-3 (mild Acetaminophen 650 mg 01/10/25 06:05 Acetaminophen 325 Mg Tablet PO 02/09/25 01:49 Q6H PRN Fever >100.4 Albuterol/Ipratropium 3 ml 01/10/25 07:00 01/17/25 13:10 Albuterol/Ipratropium (Duoneb) Rt Shanelle 3 Ml Nebu INH 02/09/25 06:59 3 ml Q6HRRT BRYNN Administration Apixaban 5 mg 01/16/25 15:00 01/17/25 09:05 Apixaban 2.5 Mg Tablet PO 02/15/25 14:59 5 mg BID BRYNN Administration Diltiazem HCl 120 mg 01/16/25 09:00 01/17/25 09:05 Diltiazem Cd 120 Mg Capcr PO 02/15/25 08:59 120 mg QDAY BRYNN Administration Furosemide 40 mg 01/12/25 09:00 01/17/25 09:04 Furosemide Inj 10 Mg/Ml 4ml Vial IVP 02/11/25 08:59 40 mg QDAY BRYNN Administration Acetazolamide Sodium 250 mg/ 52.5 mls @ 105 mls/hr 01/18/25 09:00 Sterile Water 2.5 ml/ Sodium IV 02/17/25 08:59 Chloride QDAY BRYNN Meclizine HCl 25 mg 01/10/25 09:00 01/14/25 09:11 Meclizine Hcl 25 Mg Tablet PO 02/09/25 08:59 25 mg QDAY BRYNN Administration Polyethylene Glycol 17 gm 01/15/25 15:15 01/16/25 09:28 Polyethylene Glycol 17 Gm Packet PO 02/14/25 15:14 17 gm QDAY BRYNN Administration Venlafaxine HCl 150 mg 01/10/25 09:00 01/17/25 09:05 Venlafaxine Xr 37.5 Mg Capcr PO 02/09/25 08:59 150 mg QDAY BRYNN Administration Plan The patient is an 89-year-old female with significant past medical history of COPD on 2L home oxygen at night, diabetes mellitus type 2, gastric ulcer, depression, valley fever, chronic vertigo with on and off anemia presented to ED with chief complaint of SOB that has been worsening for past several weeks. She was admitted to telemetry unit for further management of acute hypoxic hypercapnic respiratory failure 2/2 COPD exacerbation and severe symptomatic anemia. #New onset Afib, rate controlled 01/13/25 patient started to have Afib. Before that she did not have a history of Afib. [id number] score is 5. 01/15/25: Patient is in sinus rhythm. Plan: - amiodaron drip finished 01/14/25 - diltiazem 30 mg TID to stop 01/15/2025 - diltiazem 120 mg once starting 01/16/2025 - heparin drip discontinued 01/16/25 - eliquis 5 mg BID - cardiology is following, appreciate recommendations #Drowsiness, improved Possibly due to medical condition (severe anemia, hypoxia) and medication side effect. Saturates well on room air, responsive, open eyes to the voice. 01/13/25: ABG did not show worsened hypoxia or hypercapnia. Plan: - hold meclizine #Acute hypoxic and hypercapnic respiratory failure, resolving #Pulmonary edema #New onset CHF exacerbation #COPD exacerbation, resolved The patient complained of SOB that has been worsening for past several weeks, reported having low energy, bilateral lower limb edema, easy fatigability and weakness. Physical examination was significant for bilateral lower limb pitting edema extending up to mid thigh. Chest x-ray was significant for moderate CHF later was found to have pulmonary edema. Initial ABG revealed pH 7.19 and PCO2 98. Last documented echo in 06/2023 showed EF 55-60% and moderate aortic stenosis. TTE 01/12/25: EF of 60 to 65%. Severe aortic stenosis with aortic valve area MAIKOL of 0.8 cm?, V-max 4.1 m/s, mean PG of 50 mmHg, peak PG of 70 mmHg. Discontinued azithromycin 500 Mg IV 01/11-01/1301/14/25: Discontinued prednisone 40 mg PO qday. Plan: -Continue Lasix 40 mg IV qday - Diamox 250 mg qday -Continue BiPAP -Strict ins and outs -Duonebs Q6H scheduled -Fluid restriction 1500 ml -Low sodium diet -Wean down oxygen as tolerated #Moderate aortic stenosis Physical examination reveals a 4 out of 6 systolic murmur best heard in the right upper sternal border Previous echocardiogram was done in June 2023 which revealed an EF of 55 to 60% with moderate AV stenosis with a mean pressure of 26 mmHg and a V-max of 3.2 m/s Likely playing a component in patient's shortness of breath as well as anemia TTE 01/12/25: EF of 60 to 65%. Severe aortic stenosis with aortic valve area MAIKOL of 0.8 cm?, V-max 4.1 m/s, mean PG of 50 mmHg, peak PG Plan: -Cardiology consulted and following, appreciate recommendations #Severe symptomatic microcytic anemia #Iron deficiency anemia Likely secondary to mechanical destruction due to severe aortic stenosis Patient denied any dark bowel movement, or bloody on her stool, occult blood test was negative making GI blood loss less likely Physical examination was significant for severe crescendo-decrescendo midsystolic murmur at right second intercostal space Hemoglobin during presentation was 4.4, hematocrit 19.1, MCV 73, RDW 52.1 Iron panel showed low iron of 11, TIBC 451, 2% iron saturation, ferritin 11 Reticulocyte count high at 3.2% s/p 3 units of PRBC Plan: -Continue to monitor H&H, and transfuse PRBC if hemoglobin less than 7 -Avoid NSAIDs/ASA/chemical prophylaxis - 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 AM glucose has ranged 116-221, patient is currently on steroid as well. -No need for subQ insulin at this time -Monitor daily glucose on chem panel Health maintenance: Dispo: Telemetry unit for further management of acute hypoxic hypercapnic respiratory failures and severe symptomatic microcytic anemia Diet: Cardiac diet with fluid restriction of 1500 cc DVT prophylaxis: Eliquis 5 mg BID CODE STATUS: DNR, okay to intubate if needed Plan of care discussed with attending Dr. Choudhury, PGY-[address] Quintanilla. Vero Petersen MD, PGY 1. Attending Provider Attestation/Addendum Murali, Jane Choudhury, DO, attest that I was physically present for the cabrera portions of the service and evaluated the patient with the resident and I reviewed and discussed the case with the resident and agree with the resident's findings and plans of care as documented above Patient seen and evaluated this a.m. She remains on 2 L nasal cannula and has no active complaints at this time. Case discussed with cardiology, [facility] with Lasix 40 mg p.o. daily and Diamox to 250 mg daily. However, due to need for BiPAP to be ordered prior to discharge at the SNF, settings have been sent and will discharge patient once this is arranged. Will continue with current management. Rest of cardiac workup can be done outpatient. Emphasized that patient needs to be on BiPAP at night when sleeping. Bilateral lower extremity edema has completely resolved at this time. Lungs are clear to auscultation bilaterally.
--- NOTE | 2025-01-17 19:32 | PD.IMPROG ---
Documentation for date of: 01/17/25 Subjective Subjective Interval history: Patient evaluated much more lucid hemoglobin hematocrit 8.9 and 32.1 Patient is waiting for SNF bed still not a candidate although respiratory status has improved for any invasive GI workup Exam Vital Signs Temp Pulse Resp BP Pulse Ox O2 Del Method O2 Flow Rate 98.0 F 77 22 H 131/59 H 98 BiPAP 2 01/17/25 16:00 01/17/25 19:16 01/17/25 19:16 01/17/25 16:00 01/17/25 19:16 01/17/25 16:00 01/17/25 19:16 FiO2 35 01/17/25 16:00 Objective Labs 01/17/25 05:17 01/17/25 05:17 Labs: Laboratory Results - last 24 hr 01/17/25 05:17 WBC 9.8 RBC 3.79 L Hgb 8.9 L Hct 32.1 L MCV 85 MCH 23.5 L MCHC 27.7 L RDW Std Deviation 85.5 H Plt Count 157 Neut % (Auto) 82 H Lymph % (Auto) 8 L Webb % (Auto) 8 Eos % (Auto) 2 Baso % (Auto) 0 Neut # (Auto) 8.0 H Lymph # (Auto) 0.8 L Webb # (Auto) 0.7 Eos # (Auto) 0.2 Baso # (Auto) 0.0 Immature Gran # (Auto) 0.04 H Absolute Nucleated RBC 0.00 Immature Gran % 0 Nucleated RBC % 0 Sodium 141 Potassium 3.6 Chloride 100 Carbon Dioxide 36.1 H Anion Gap 5 L BUN 15 Creatinine 0.8 Estim Creat Clear Calc 53.0 L eGFR > 60 BUN/Creatinine Ratio 19 Glucose 112 H Calculated Osmolality 283 Calcium 8.4 Corrected Calcium 8.9 Phosphorus 2.7 Magnesium 2.0 Total Bilirubin 0.7 AST 25 ALT 19 Alkaline Phosphatase 66 Total Protein 6.1 Albumin 3.4 Globulin 2.7 Albumin/Globulin Ratio 1.3 Impressions Impression: Anemia blood loss Improved hypoxic respiratory failure Continue supportive care ABG Interpretation ABG results: 01/09/25 01/10/25 01/11/25 23:10 01:05 09:54 ABG pH 7.19 L* 7.29 L D 7.50 H D ABG pCO2 98 H* 83 H* D 68 H D ABG pO2 63 L 70 L 61 L ABG HCO3 37 H 40 H 53 H ABG O2 Saturation 88 L 94 93 ABG Base Excess 7 H 11 H 26 H 01/13/25 01/14/25 09:15 09:12 ABG pH 7.37 D 7.42 ABG pCO2 68 H 62 H ABG pO2 80 L 70 L ABG HCO3 39 H 40 H ABG O2 Saturation 97 95 ABG Base Excess 12 H 14 H Assessment & Plan A&P Narrative # Acute anemia blood loss requiring transfusion in the setting of aortic stenosis and unexplained iron deficiency anemia Patient having intermittent bleeding, 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 Her general health at the moment is not conducive to perform any procedure under intravenous moderate sedation because of her respiratory status Recommendation is to transfuse as needed and wait for the opportunity when her respiratory function improves and at least perform an upper endoscopy to quickly fix the problem if there is 1 The best option would be to fix her aortic stenosis Other medical problems include # Acute hypoxic hypercapnic respiratory failure # COPD # Atrial fibrillation with RVR # Diabetes mellitus type 1 depression # Chronic vertigo # Depression Thank you very much for the opportunity to participate in the care of this patient Time Spent With Patient Time: Total time spent is greater than 50% in coordination of care (as documented) at patient's floor/unit and/or counseling patient:
--- NOTE | 2025-01-17 23:49 | PD.IMPROG ---
Documentation for date of: 01/17/25 Subjective Subjective Interval history: Patient to be discharged today as per the primary team. Patient should be discharged on BiPAP every night at least from 8 PM to 6 AM and she has severe COPD Patient has diuresed well with Lasix 40 mg IV during the hospitalization along with Diamox 500 mg daily. She has been net negative around 11 to 12 L since admission and is doing well. Recommend discharge dose of Lasix 40 mg once daily and Diamox 250 mg once daily.. Patient should follow-up in 1 week with me in office even if she goes to her rehab to check the BMP and magnesium and readjust her diuretics. Patient does have severe aortic stenosis we will have to start her workup once patient is better. She will need complete ischemic workup along with a left and right heart cardiac catheterizations and the cardiothoracic surgery consult prior to the evaluation of valve placement for TAVR. Patient heart rate is well-controlled and he is on diltiazem extended release 120 mg once daily which would recommend to continue and no beta-rebecca for now given that the patient has severe COPD. Keep potassium greater than 4 and magnesium greater than 2.0 at all times. Exam Vital Signs Temp Pulse Resp BP Pulse Ox O2 Del Method O2 Flow Rate 7.3 F L 74 16 122/56 L 95 Nasal Cannula 3 01/17/25 20:00 01/17/25 20:00 01/17/25 20:00 01/17/25 20:00 01/17/25 20:00 01/17/25 20:00 01/17/25 20:00 FiO2 35 01/17/25 16:00 Narrative Exam Constitutional: Elderly female sleeping on NC HEENT: Normocephalic, atraumatic, mucous membranes moist. CVS: Irregularly irregular, S1 and S2 present, + systolic murmur aortic area, no rubs or gallops . RESP: CTAB, no SOB, no rales. There is bilateral rhonchi with some wheezing GI: Normal BS, Nontender/Nondistended. MSK: Full range of motion, No trauma or deformities or masses. Skin: Resolved erythema, bilateral lower extremities with 1+ pitting edema bilaterally, significant edema-improving noted on dependent body parts. Neuro: AAOx3. manager business information II-XII grossly intact. Sensation grossly intact. Psych: Appropriate mood and affect. Objective Labs 01/17/25 05:17 01/17/25 05:17 Labs: Laboratory Results - last 24 hr 01/17/25 05:17 WBC 9.8 RBC 3.79 L Hgb 8.9 L Hct 32.1 L MCV 85 MCH 23.5 L MCHC 27.7 L RDW Std Deviation 85.5 H Plt Count 157 Neut % (Auto) 82 H Lymph % (Auto) 8 L Millard % (Auto) 8 Eos % (Auto) 2 Baso % (Auto) 0 Neut # (Auto) 8.0 H Lymph # (Auto) 0.8 L Millard # (Auto) 0.7 Eos # (Auto) 0.2 Baso # (Auto) 0.0 Immature Gran # (Auto) 0.04 H Absolute Nucleated RBC 0.00 Immature Gran % 0 Nucleated RBC % 0 Sodium 141 Potassium 3.6 Chloride 100 Carbon Dioxide 36.1 H Anion Gap 5 L BUN 15 Creatinine 0.8 Estim Creat Clear Calc 53.0 L eGFR > 60 BUN/Creatinine Ratio 19 Glucose 112 H Calculated Osmolality 283 Calcium 8.4 Corrected Calcium 8.9 Phosphorus 2.7 Magnesium 2.0 Total Bilirubin 0.7 AST 25 ALT 19 Alkaline Phosphatase 66 Total Protein 6.1 Albumin 3.4 Globulin 2.7 Albumin/Globulin Ratio 1.3 ABG Interpretation ABG results: 01/09/25 01/10/25 01/11/25 23:10 01:05 09:54 ABG pH 7.19 L* 7.29 L D 7.50 H D ABG pCO2 98 H* 83 H* D 68 H D ABG pO2 63 L 70 L 61 L ABG HCO3 37 H 40 H 53 H ABG O2 Saturation 88 L 94 93 ABG Base Excess 7 H 11 H 26 H 01/13/25 01/14/25 09:15 09:12 ABG pH 7.37 D 7.42 ABG pCO2 68 H 62 H ABG pO2 80 L 70 L ABG HCO3 39 H 40 H ABG O2 Saturation 97 95 ABG Base Excess 12 H 14 H Assessment & Plan A&P Narrative Ms. Viera is a 89-year-old female with significant past medical history of COPD on 2 L home oxygen at night, diabetes mellitus type 2, gastric ulcer, depression, valley fever, chronic vertigo and anemia presented to ED with chief complaint of SOB that has been worsening for past several weeks. Cardiology consulted secondary to CHF exacerbation and moderate to severe aortic stenosis. #Acute hypoxic and hypercapnic respiratory failure secondary to #Acute decompensated heart failure #Heart failure with preserved ejection fraction, EF 60 to 65% #Diastolic heart failure #Severe symptomatic anemia #COPD exacerbation Patient presented initially with worsening shortness of breath over the past several weeks, tiredness low energy, bilateral lower extremity edema. Patient had SpO2 77 on 3 L nasal cannula, ABG showed pH 7.19, pCO2 98 and hence patient was started on BiPAP. Patient denies any history of heart disease, has never seen a mlt. Patient was admitted in June 2023 for acute left femoral neck and cardiology was consulted to obtain preop cardiac clearance. Echocardiogram from 2022 showed EKG for this visit shows sinus rhythm, heart rate 89. No acute ST-T changes noted. Chest x-ray shows significant bilateral edema. On physical exam patient does have 4+ bilateral lower extremity edema Patient's hemoglobin on presentation 4.4, hematocrit 19.1, further investigation shows severe iron deficiency, iron 11, TIBC 451, iron saturation 2%, unsaturated iron binding 440, ferritin 11. 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 Patient had colonoscopy done per review of records on 03/06/2024, shows no AV malformations, or diffuse area of mildly erythematous mucosa was seen in descending colon, pathology for those showed normal colonic mucosa Patient denies any history of smoking, did have extensive exposure to secondhand smoke. Patient has been on home oxygen for at least 2 years, use albuterol inhaler. 01/15-Patient is -2 L net negative in the last 24 hours, Total hospitalization net negative -10.885 L Echocardiogram 01/12/25: Normal LV size and function with an EF of 60 to 65%. Mild to moderate LVH. Diastolic dysfunction stage I. Normal RV size and function. RVSP normal at 25 mmHg. Severe aortic stenosis with aortic valve area MAIKOL of 0.8 cm?, V-max 4.1 m/s, mean PG of 50 mmHg, peak PG of 70 mmHg. Mild MAC with mild MR and as well as mild TR. Mildly dilated LA. No pericardial effusion. Recommendations: -Continue Lasix 40 mg daily cautious diuresis considering patient has moderate to severe aortic stenosis. -Continue IV Iron Sucrose, replace IV Iron for 3-5 days due to severe symptomatic anemia has iron deficiency component. 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 -Continue BiPAP at night -Strict intake and output -Fluid restriction 1500 cc, daily weight -Cardiac low-sodium diet -Management of COPD exacerbation per primary team, patient is on DuoNeb every 6 hour MANAGER DEMAND, ceftriaxone and azithromycin was given x 1 in ED and is on prednisone 40 mg p.o. daily -Patient has significant symptomatic anemia, has history of gastric ulcers, there is suspicion of heyde syndrome, was transfused 3 units PRBC, posttransfusion H&H stable. -Monitor for GI bleed, bleeding precautions. -Patient has significant iron deficiency, will benefit from iron supplementation. Patient should be discharged on BiPAP every night at least from 8 PM to 6 AM and she has severe COPD Patient has diuresed well with Lasix 40 mg IV during the hospitalization along with Diamox 500 mg daily. She has been net negative around 11 to 12 L since admission and is doing well. Recommend discharge dose of Lasix 40 mg once daily and Diamox 250 mg once daily.. Patient should follow-up in 1 week with me in office even if she goes to her rehab to check the BMP and magnesium and readjust her diuretics. # New onset atrial fibrillation with rapid ventricular response EKG 01/13/2025 shows atrial fibrillation with RVR. [id number] score 5 Recommendations: -Continue Diltiazem 30mg PO TID today, transition to Diltiazem ER 120mg. Patient heart rate is well-controlled and he is on diltiazem extended release 120 mg once daily which would recommend to continue and no beta-rebecca for now given that the patient has severe COPD. Keep potassium greater than 4 and magnesium greater than 2.0 at all times. -Continue eliquis for anticoagulation -Continue telemonitoring #Severe aortic stenosis Patient's echocardiogram 2022 showed moderate AV stenosis, mean PG 26 mmHg, V-max 3.2 m/s. Patient has a significant systolic aortic murmur Patient's hemoglobin on presentation 4.4, hematocrit 19.1, further investigation shows severe iron deficiency, iron 11, TIBC 451, iron saturation 2%, unsaturated iron binding 440, ferritin 11. 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 Patient had colonoscopy done per review of records on 03/06/2024, shows no AV malformations, or diffuse area of mildly erythematous mucosa was seen in descending colon, pathology for those showed normal colonic mucosa Echocardiogram 01/12/25: Normal LV size and function with an EF of 60 to 65%. Mild to moderate LVH. Diastolic dysfunction stage I. Normal RV size and function. RVSP normal at 25 mmHg. Severe aortic stenosis with aortic valve area MAIKOL of 0.8 cm?, V-max 4.1 m/s, mean PG of 50 mmHg, peak PG of 70 mmHg. Mild MAC with mild MR and as well as mild TR. Mildly dilated LA. No pericardial effusion. 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 -Patient would likely outpatient workup once more stable for possible aortic valve replacement. -Per GI patient is not stable for further workup currently will pursue outpatient workup as needed Patient does have severe aortic stenosis we will have to start her workup once patient is better. She will need complete ischemic workup along with a left and right heart cardiac catheterizations and the cardiothoracic surgery consult prior to the evaluation of valve placement for TAVR. #Electrolyte abnormalities #Hypokalemia Correct and replace electrolytes as needed, aggressively replace potassium and magnesium Keep potassium more than 4 and magnesium more than 2 # Metabolic alkalosis Patient likely has contraction alkalosis due to diuresis with IV Lasix, patient is still fluid overloaded. Was given Diamox 500 mg IV x 2 -01/11 -Start on Diamox 500 mg qday #Depression -Started on venlafaxine 150 Mg ER daily #Chronic vertigo -Started on meclizine 25 Mg daily #Diabetes mellitus type 2 A1c 5.6, patient's blood glucose on BMP in range of 140-180 Management of rest of the medical conditions as per primary team and other consultants. Thank you for the consult and allowing me to participate in the care of the patient. Cardiology will continue to follow. Wenceslao Aguilar M.D. Interventional Cardiology Time Spent With Patient Time: Total time spent is greater than 50% in coordination of care (as documented) at patient's floor/unit and/or counseling patient:
[2025-01-18] VITALS (9 sets, daily range): BP systolic 121–137; BP diastolic 51–70; PULSE 68–80; RESP 16–25; TEMP 36.2–36.8; O2SAT 95–989; BMI 35.6
[2025-01-18] MEDS: ALBUTEROL/IPRATROPIUM (Duoneb) RT SOL 3 ML NEBU INH ×2 (01:08→06:47)
[2025-01-18 06:24] LABS: Basophils % (Auto) 0 % (0-2.5); Eosinophils # (Auto) 0.2 Thou/mm3 (0.0-0.5); Eosinophils % (Auto) 2 % (0-10); Hemoglobin 8.9 g/dL (12.0-16.0); Immature Granulocytes % (Auto) 0 % (0-0); Immature Granulocytes Auto 0.04 Thou/mm3 (0.00-0.00); Lymphocytes # (Auto) 0.9 Thou/mm3 (1.0-4.8); Lymphocytes % (Auto) 9 % (10-50); Mean Corpuscular HGB Conc 27.8 g/dl (31.0-37.0); Mean Corpuscular Hemoglobin 23.6 pg (25.0-35.0); Mean Corpuscular Volume 85 fL (80-100); Monocytes # (Auto) 0.8 Thou/mm3 (0.0-0.8); Monocytes % (Auto) 8 % (0-12); Neutrophils # (Auto) 7.7 Thou/mm3 (1.8-7.7); Neutrophils % (Auto) 79 % (37-80); Nucleated Red Blood Cell % 0 /100 WBC (0); Platelet Count 162 Thou/mm3 (140-440); Red Blood Count 3.77 Miln/mm3 (4.00-5.20); White Blood Count 9.8 Thou/mm3 (3.6-11.0)
[2025-01-18 07:03] LABS: Alanine Aminotransferase 14 U/L (10-49); Albumin, Serum 3.4 gm/dL (3.4-4.8); Albumin/Globulin Ratio 1.3 (1.2-2.2); Alkaline Phosphatase 65 U/L (46-116); Anion Gap 8 (7-16); Aspartate Amino Transferase 21 U/L (0-34); BUN/Creatinine Ratio 23 Ratio (12-20); Bilirubin,Total 0.6 mg/dL (0.3-1.2); Blood Urea Nitrogen 16 mg/dL (9-23); Calcium 8.5 mg/dL (8.3-10.6); Carbon Dioxide 33.5 mMol/L (20.0-31.0); Chloride 99 mMol/L (98-107); Creatinine (Component) 0.7 mg/dL (0.6-1.3); Estimated Creatinine Clearance 59.5 mL/min (>60); Globulin 2.7 gm/dL (2.3-3.5); Glucose 94 mg/dL (74-106); Magnesium 1.8 mg/dL (1.6-2.6); Osmolality,Calculated 280 (275-295); Phosphorous 2.8 mg/dL (2.4-5.1); Potassium 3.4 mMol/L (3.4-5.1); Sodium 140 mMol/L (136-145); Total Protein 6.1 gm/dL (5.7-8.2); eGFR > 60 See Note
[2025-01-18] MEDS: APIXABAN 2.5 MG TABLET 5 MG PO (08:33)
[2025-01-18] MEDS: FUROSEMIDE INJ 10 MG/ML 4ML VIAL 40 MG IVP (08:33)
[2025-01-18] MEDS: POTASSIUM CHLORIDE 20 mEq TABCR 40 MEQ PO (08:34)
[2025-01-18] MEDS: VENLAFAXINE XR 37.5 MG CAPCR 150 MG PO (08:34)
[2025-01-18] MEDS: Magnesium Sulfate 2 GM Ivpb 2 GM/50 ML BAG IV (08:35)
[2025-01-18] MEDS: DILTIAZEM CD 120 MG CAPCR PO (08:35)
[2025-01-18] MEDS: [UNRECOGNIZED DRUG - OTHER] IV (08:40)
[2025-01-18] MEDS: SODIUM CHLORIDE IV (08:40)
[2025-01-18] MEDS: STERILE WATER IV (08:40)
--- NOTE | 2025-01-18 09:29 | PC.SS ---
Addendum entered by Sahra Simons 01/18/25 10:02: SS contacted [employer] [facility] for transportation setup, ETA for pickup 1300. ELEANOR Garcia, BURTON Lehman, and patient's friend Andrew Edwards [phone] informed of transport for today at 1300. [facility] unable to locate BiPAP settings on submitted documents. SS confirmed with ELEANOR Nelson BiPAP settings are the following: IPAP 10, EPAP 5, RR 16, FIO2 35. Original Note: Current BiPAP settings submitted via [facility] to [facility]. ETA for transportation pending.
--- NOTE | 2025-01-18 12:50 | PC.NURSE ---
ELEANOR Mancilla from [facility] was called to give D/C report.
--- NOTE | 2025-01-18 12:54 | PC.NURSE ---
When report was called to SNF nurse Charo, she stated that the facility has not yet received the BiPAP machine. Sahra from social work nurse contacted and she stated that she will follow up and schedule olive picker time for later.
--- NOTE | 2025-01-18 13:22 | PC.NURSE ---
Per Sahra from manager social work, BiPAP machine will be delivered by the end of today to ST. Patient ok to be discharged to SNF.
--- NOTE | 2025-01-18 15:40 | ESDS_ITS ---
<Statement entered by Jane Choudhury DO - 01/19/25 08:35> I, Jane Choudhury DO, attest that I was physically present for the cabrera portions of the service and evaluated the patient with the resident and I reviewed and discussed the case with the resident and agree with the resident's findings and plans of care as documented above Planned Discharge Date 01/18/25 DS: Providers Provider Date of admission: 01/10/25 01:50 Primary care physician: Varun Diaz MD Admitting Provider: Tray Becerril MD Attending Provider on Admission: Jane Choudhury DO Consults: 01/10/25 08:35 Consult to Cardiology Routine Comment: Hx of Consulting Provider: Wenceslao Aguilar 01/13/25 08:47 Consult to Gastroenterology Routine Comment: Heyde syndrome susp Consulting Provider: Abel Geiger 01/14/25 08:28 Referral Physical Therapy Routine Comment: Physician Instructions: Attending Provider on DC: Jane Choudhury DO Discharging Provider: Mallory Quintanilla MD DS: Diagnosis Problem List Completed Was Problem List Reviewed/Reconciled?: Yes Hospital Course Hospital Course Hospital course: The patient is a 89-year-old female with a previous medical history of COPD on 2 L home oxygen, type 2 diabetes, peptic ulcer disease, depression, history of valley fever, chronic vertigo, anemia was brought to the ED on 01/09/2025 due to shortness of breath that has been worsening over the last several weeks. She also reported general weakness, easy fatigability, bilateral lower limb edema, lightheadedness. She denied bloody stools, chest pain, nausea, vomiting. In the ED blood pressure was elevated up to 190s/90s, in significant respiratory distress, initially was on 3 L nasal cannula, was switched to the BiPAP. Labs showed hemoglobin 4.4, hematocrit 9.1, MCV 73, PT 13, INR 1.2, PTT 20.3. ABGs showed pH of 7.19, pCO2 of 98, pO2 of 63. After BiPAP ABG showed pH of 7.29, pCO2 83, pO2 70. Chest x-ray showed moderate heart failure, repeat chest x-ray showed worsening of pulmonary edema with bilateral pleural effusions. She was given IV furosemide, was started on antibiotics, nitroglycerin patch was administered and was started on nitroglycerin drip. She also received 3 units of PRBC. She was admitted to telemetry for acute hypoxic hypercapnic respiratory failure secondary to COPD exacerbation, severe anemia and heart failure. Cardiology and gastroenterology specialists were consulted, workup revealed severe aortic stenosis, patient was continued to be intensively diuresed. On 01/13/2025 was noted the patient has A-fib with RVR, heart rate was in the 130s, hemodynamically stable. She was started on amiodarone drip and heparin drip, [id number] 5. The next day patient converted to sinus rhythm. She was transitioned to oral Eliquis. Due to successful diuresis, patient continued to be negative balance. Patient's oxygen requirements have gone down. Patient started to wear BiPAP only at night. Per gastroenterology, patient may have intermittent bleeding due to possible AVM in the GI tract, but further workup is recommended after the aortic stenosis repair. Patient was switched from heparin drip to Eliquis for clot prevention, and was switched from amiodarone drip to diltiazem. Patient has also received IV iron infusions. Patient was seen and examined by the bedside and was medically cleared for discharge to SNF with discharge recommendations. Hospital diagnoses: #New onset Afib, rate controlled #Acute hypoxic and hypercapnic respiratory failure, improving #Anasarca #Pulmonary edema #New onset CHF exacerbation #COPD exacerbation #Moderate aortic stenosis #Severe symptomatic microcytic anemia #Iron deficiency anemia #Depression #Chronic vertigo #Diabetes mellitus type 2 Discharge recommendations: - Follow-up with your PCP in 1-2 weeks - Follow-up with Dr. Aguilar in 1-2 weeks - Repeat CMP in 1 week For the A-fib: - Take Diltiazem 120 mg ER per mouth once a day - Take Eliquis 5 mg per mouth twice a day For the COPD: - Wear BiPAP/CPAP at night 8pm-6am - Use supplemental oxygen as needed For the heart failure: - Take Lasix 40 mg per mouth daily - Take Diamox 250 mg per mouth every day - Stop taking Lasix 20mg every day For your anemia: - Take ferrous sulfate per mouth once every other day - Take the rest of your medications as planned CHF Instructions: - Please ensure you have a weighing scale, 2 gram sodium restriction, 2L fluid restriction - Please note your weight on the discharge paperwork prior to leaving - Every morning after you wake up and urinate, please weigh yourself, and document the date and the weight. - If your weight increases by 2 pounds in 1 day or by 5 pounds in a week, call your Healthcare Technician. - If you notice shortness of breath, having to use more pillows to prop your head up when you sleep, waking up short of breath, clothes fitting tighter, swelling your legs, decreased urination, please call. If any symptoms are severe, go to the Emergency Department. - Avoid using medications called NSAIDs (also known as nonsteroidal anti- inflammatory drugs), such as ibuprofen, Motrin, Aleve, Advil, naproxen. - Avoid using canned vegetables, canned soups, frozen dinners as these tend to have a lot of salt. Patient plan of care was discussed with the attending physician, Dr. Choudhury. Mallory Quintanilla, PGY-2 Time Spent with Patient Time attestation: Total time spent providing and/or coordinating discharge services: Exam Vital Signs Temp Pulse Resp BP Pulse Ox O2 Del Method O2 Flow Rate 97.8 F 71 19 137/70 H 98 Nasal Cannula 2 01/18/25 12:00 01/18/25 12:00 01/18/25 12:00 01/18/25 12:00 01/18/25 12:00 01/18/25 12:00 01/18/25 12:00 FiO2 35 01/17/25 16:00 Narrative Exam Constitutional: Chronically ill-appearing female NC. Conversational. Coarse voice. CVS: RRR, S1 and S2 present, 4/6 systolic murmur heard best at the right upper sternal border. RESP: CTAB, no SOB, no rales. GI: Normal BS, Nontender/Nondistended. MSK: Full range of motion, No trauma or deformities or masses. Skin: Erythema in the lower ankle area almost resolved, ankle skin wrinkled, trace ankle edema bilaterally. Neuro: stock layer II-XII grossly intact. Able to speak full sentences. Psych: (AAO) x3 . Appropriate mood and affect. Discharge Plan Plan Patient Disposition: Xfer Skilled Nsg Fac (SNF) Patient condition on transfer: Stable Care Plan Goals: Discharge recommendations: - Follow-up with your PCP in 1-2 weeks - Follow-up with Dr. Aguilar in 1 week - Repeat CMP in 1 week For the A-fib: - Take Diltiazem 120 mg ER per mouth once a day - Take Eliquis 5 mg per mouth twice a day For the COPD: - Wear BiPAP/CPAP at night 8pm-6am - Use supplemental oxygen as needed For the heart failure: - Take Lasix 40 mg per mouth daily - Take Diamox 250 mg per mouth every day for 30 days - Stop taking Lasix 20mg every day For your anemia: - Take ferrous sulfate per mouth once every other day -Take the rest of your medications as planned CHF Instructions: - Please ensure you have a weighing scale, 2 gram sodium restriction, 2L fluid restriction - Please note your weight on the discharge paperwork prior to leaving - Every morning after you wake up and urinate, please weigh yourself, and document the date and the weight. - If your weight increases by 2 pounds in 1 day or by 5 pounds in a week, call your Healthcare Technician. - If you notice shortness of breath, having to use more pillows to prop your head up when you sleep, waking up short of breath, clothes fitting tighter, swelling your legs, decreased urination, please call. If any symptoms are sever e, go to the Emergency Department. - Avoid using medications called NSAIDs (also known as nonsteroidal anti- inflammatory drugs), such as ibuprofen, Motrin, Aleve, Advil, naproxen. - Avoid using canned vegetables, canned soups, frozen dinners as these tend to have a lot of salt. Prescriptions/Referrals Prescriptions/Med Rec: New diltiazem HCl 120 mg capsule,extended release 12 hr 120 mg PO QDAY 30 Days Qty: 30 0RF Eliquis 5 mg tablet 5 mg PO BID 30 Days Qty: 60 0RF ferrous sulfate 324 mg (65 mg iron) tablet,delayed release (DR/EC) 324 mg PO Q OTHER DAY 30 Days Qty: 15 0RF acetazolamide 250 mg tablet 250 mg PO QDAY 30 Days Qty: 30 0RF Continued meclizine 25 mg tablet 25 mg PO QDAY PRN (Reason: Dizziness) Patient Comments: Take 1 tablet oral once a day as needed famotidine 10 mg Tablet 10 mg PO QDAY venlafaxine 150 mg capsule,extended release 24hr 150 mg PO BID Patient Comments: TAKE 1 CAPSULE (150 MG TOTAL) TWO TIMES DAILY BY MOUTH losartan 25 mg Tablet 25 mg PO QDAY buspirone 15 mg Tablet 15 mg PO QDAY albuterol sulfate 90 mcg/actuation HFA aerosol inhaler 2 inh inhalation QID PRN (Reason: shortness of breath or wheezing) Qty: 8.5 0RF Changed furosemide [Lasix] 20 mg tablet 40 mg PO QDAY Qty: 30 0RF Referrals: Wenceslao Aguilar MD [Physician] - Varun Diaz MD [Primary Care Provider] - Patient/Caregiver Discharge Instructions Education Materials: Aortic Stenosis, Aortic Valve Stenosis Dc, ED Heart Disease Education Print Language: Japanese Stand Alone Forms: Joycelyn Award Info., Patient Portal Info Letter Discharge Order Discharge Orders: Discharge (Routine); Ordered 01/17/25 Ordered By: Mallory Quintanilla Quality Discharge Quality Measures VTE therapy
== END 2025-01-18 13:13 | disposition skilled nursing facility (03) | DRG 189 ==
LOC: SERX 23:44 → SERHOLD 01-10 02:11 → S2NX 01-10 08:31 → S2SX 01-20 08:53
PROVIDERS: Nurse Practitioner Family; Student in an Organized Health Care Education/Training Program; Admitting Provider Internal Medicine; Emergency Provider Emergency Medicine; PCP Family Medicine; Visit Provider Internal Medicine
DX: J96.21 Acute and chronic respiratory failure with hypoxia (principal); J44.1 Chronic obstructive pulmonary disease with (acute) exacerbation; D62 Acute posthemorrhagic anemia; I50.32 Chronic diastolic (congestive) heart failure; N39.0 Urinary tract infection, site not specified; E87.4 Mixed disorder of acid-base balance; J96.22 Acute and chronic respiratory failure with hypercapnia; I11.0 Hypertensive heart disease with heart failure; F32.A Depression, unspecified; I35.0 Nonrheumatic aortic (valve) stenosis; I16.0 Hypertensive urgency; I45.10 Unspecified right bundle-branch block; D50.9 Iron deficiency anemia, unspecified; I49.1 Atrial premature depolarization; D69.6 Thrombocytopenia, unspecified; I48.0 Paroxysmal atrial fibrillation; E87.6 Hypokalemia; E10.9 Type 1 diabetes mellitus without complications; Z79.899 Other long term (current) drug therapy; Z87.11 Personal history of peptic ulcer disease; Z96.653 Presence of artificial knee joint, bilateral; Z79.01 Long term (current) use of anticoagulants; Z99.81 Dependence on supplemental oxygen
CPT/HCPCS: 36415; 36430; 36600; 71045; 80048; 80053; 80061; 80069; 81001; 82728; 82803; 83010; 83036; 83540; 83550; 83605; 83615; 83735; 84100; 84132; 84145; 84443; 85025; 85046; 85240; 85245; 85246; 85247; 85610; 85730; 86850; 86900; 86901; 86923; 87040; 87811; 93005; 93225; 93306; 94640; 94660; 94664; 96365; 96367; 96374; 97162; 99291; 99292; A4216; A9270; J0283; J0456; J0696; J1120; J1643; J1644; J1756; J1940; J3475; J3480; J3490; J7050; J7512; J7999; P9016; J2305

== ENCOUNTER → 2025-01-09 | Outpatient (CLI) | payer MEDICARE, BC, SELFPAY ==
--- NOTE | 2025-01-09 | XR_ITS ---
Examination: PA lateral chest 2 views Technique: Upright PA lateral chest 2 views Exam date and time: 2024, 1215 hrs. Comparison November 24, 2024 Indications: Shortness of breath beginning 2 weeks ago. Findings: Moderate chronic heart failure Moderate enlargement cardiac contour Prominent vascular congestion with bibasilar pulmonary edema Mild right large left pleural effusion Bilateral shoulder arthroplasties Impression: Moderate chronic heart failure
[2025-01-09 13:42] LABS: Basophils % (Auto) 0 % (0-2.5); Eosinophils % (Auto) 0 % (0-10); Immature Granulocytes % (Auto) 1 % (0-0); Immature Granulocytes Auto 0.07 Thou/mm3 (0.00-0.00); Lymphocytes # (Auto) 0.6 Thou/mm3 (1.0-4.8); Lymphocytes % (Auto) 10 % (10-50); Mean Corpuscular Hemoglobin 16.8 pg (25.0-35.0); Mean Corpuscular Volume 73 fL (80-100); Monocytes # (Auto) 0.5 Thou/mm3 (0.0-0.8); Monocytes % (Auto) 9 % (0-12); Neutrophils # (Auto) 4.9 Thou/mm3 (1.8-7.7); Neutrophils % (Auto) 80 % (37-80); Nucleated Red Blood Cell # 0.04 Thou/mm3 (0.00-0.00); Nucleated Red Blood Cell % 1 /100 WBC (0); Platelet Count 165 Thou/mm3 (140-440); RDW Standard Deviation 52.1 fL (36.4-46.3); Red Blood Count 2.62 Miln/mm3 (4.00-5.20); White Blood Count 6.1 Thou/mm3 (3.6-11.0)
[2025-01-09 13:43] LABS: Hematocrit 19.1 % (36.0-46.0); Hemoglobin 4.4 g/dL (12.0-16.0)
[2025-01-09 13:59] LABS: Folate 9.42 ng/mL (>5.38); Vitamin B12 557 pg/mL (211-911)
[2025-01-09 14:08] LABS: Alanine Aminotransferase 10 U/L (10-49); Albumin, Serum 3.4 gm/dL (3.4-4.8); Albumin/Globulin Ratio 1.3 (1.2-2.2); Alkaline Phosphatase 70 U/L (46-116); Anion Gap 8 (7-16); Aspartate Amino Transferase 11 U/L (0-34); BUN/Creatinine Ratio 14 Ratio (12-20); Bilirubin,Total 0.6 mg/dL (0.3-1.2); Blood Urea Nitrogen 11 mg/dL (9-23); Calcium 8.2 mg/dL (8.3-10.6); Calcium (Corrected) 8.7 mg/dL (8.5-10.1); Carbon Dioxide 37.5 mMol/L (20.0-31.0); Cardiac Risk Estimate 2.2 RATIO (3.7-5.6); Chloride 101 mMol/L (98-107); Cholesterol 69 mg/dL (132-200); Creatinine (Component) 0.8 mg/dL (0.6-1.3); Globulin 2.7 gm/dL (2.3-3.5); Glucose 152 mg/dL (74-106); HDL Cholesterol 31 mg/dL (40-60); LDL Cholesterol,Calculated 20 mg/dL (0-130); Osmolality,Calculated 292 (275-295); Potassium 4.4 mMol/L (3.4-5.1); Sodium 146 mMol/L (136-145); Thyroid Stimulating Hormone 0.78 uIU/mL (0.55-4.78); Total Protein 6.1 gm/dL (5.7-8.2); Triglycerides 92 mg/dL (30-150); eGFR > 60 See Note
[2025-01-09 14:44] LABS: Path Review Blood Smear Sent to Pathologist
[2025-01-09 16:53] LABS: OBS Developer Expiration Date 123126; OBS Performed By AA; OBS QC OK? Yes; Occult Blood, Stool Negative (Negative)
== END | disposition home or self-care (01) ==
LOC: CDIM 12:06 → COPL 12:24
PROVIDERS: PCP Family Medicine; Referring Provider Family Medicine; Visit Provider Radiology Diagnostic Radiology
DX: I50.9 Heart failure, unspecified (principal); E11.9 Type 2 diabetes mellitus without complications
CPT/HCPCS: 36415; 71046; 80053; 80061; 82043; 82270; 82306; 82570; 82607; 82746; 84443; 85025

== ENCOUNTER → 2025-04-23 | Outpatient (CLI) | payer MEDICARE, BC, SELFPAY ==
[2025-04-23 10:00] LABS: Basophils % (Auto) 0 % (0-2.5); Eosinophils # (Auto) 0.2 Thou/mm3 (0.0-0.5); Eosinophils % (Auto) 4 % (0-10); Hematocrit 35.3 % (36.0-46.0); Hemoglobin 11.1 g/dL (12.0-16.0); Immature Granulocytes % (Auto) 0 % (0-0); Immature Granulocytes Auto 0.01 Thou/mm3 (0.00-0.00); Lymphocytes # (Auto) 0.8 Thou/mm3 (1.0-4.8); Lymphocytes % (Auto) 14 % (10-50); Mean Corpuscular HGB Conc 31.4 g/dl (31.0-37.0); Mean Corpuscular Hemoglobin 26.7 pg (25.0-35.0); Mean Corpuscular Volume 85 fL (80-100); Monocytes # (Auto) 0.5 Thou/mm3 (0.0-0.8); Monocytes % (Auto) 8 % (0-12); Neutrophils # (Auto) 4.3 Thou/mm3 (1.8-7.7); Neutrophils % (Auto) 74 % (37-80); Nucleated Red Blood Cell % 0 /100 WBC (0); Platelet Count 216 Thou/mm3 (140-440); RDW Standard Deviation 45.5 fL (36.4-46.3); Red Blood Count 4.16 Miln/mm3 (4.00-5.20); White Blood Count 5.8 Thou/mm3 (3.6-11.0)
[2025-04-23 10:09] LABS: Glucose Estimated Average 128 mg/dL (80-131); Hemoglobin A1C 6.1 % Hgb (4.8-6.0)
[2025-04-23 10:18] LABS: Alanine Aminotransferase 24 U/L (10-49); Albumin, Serum 3.9 gm/dL (3.4-4.8); Albumin/Globulin Ratio 1.6 (1.2-2.2); Alkaline Phosphatase 100 U/L (46-116); Anion Gap 8 (7-16); Aspartate Amino Transferase 28 U/L (0-34); BUN/Creatinine Ratio 17 Ratio (12-20); Bilirubin,Total 0.4 mg/dL (0.3-1.2); Blood Urea Nitrogen 12 mg/dL (9-23); Calcium 8.9 mg/dL (8.3-10.6); Carbon Dioxide 27.1 mMol/L (20.0-31.0); Chloride 105 mMol/L (98-107); Creatinine (Component) 0.7 mg/dL (0.6-1.3); Globulin 2.5 gm/dL (2.3-3.5); Glucose 97 mg/dL (74-106); Osmolality,Calculated 279 (275-295); Potassium 3.7 mMol/L (3.4-5.1); Sodium 140 mMol/L (136-145); Total Protein 6.4 gm/dL (5.7-8.2); eGFR > 60 See Note
== END | disposition home or self-care (01) ==
LOC: SLDO 09:32
PROVIDERS: PCP Family Medicine; Referring Provider Family Medicine; Visit Provider Family Medicine
DX: E78.2 Mixed hyperlipidemia (principal); I48.11 Longstanding persistent atrial fibrillation
CPT/HCPCS: 36415; 80053; 83036; 85025

== ENCOUNTER 2025-06-23 07:08 | Day surgery (SDC) | payer MEDICARE, BC, SELFPAY ==
--- NOTE | 2025-06-22 07:00 | EKG_ITS ---
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 : 1935 Requested By: Wenceslao Aguilar Order Number: [id number] Reading MD: Wenceslao Aguilar Measurements Intervals [place] Rate: 85 P: 56 OH: 141 QRS: 60 QRSD: 88 T: 58 QT: 386 QTc: 462 Interpretive Statements SINUS RHYTHM WITH OCCASIONAL VENTRICULAR PREMATURE COMPLEXES MODERATE ST DEPRESSION [0.05+ mV ST DEPRESSION] Compared to ECG 01/14/2025 10:46:11 Ventricular premature complex(es) now present ST (T wave) deviation now present Short [place] interval no longer present Atrial abnormality no longer present Intraventricular conduction delay no longer present Myocardial infarct finding no longer present /store/S0/[id number]/ecg/[id number].pdf
[2025-06-22 13:27] LABS: Anion Gap 11 (7-16); BUN/Creatinine Ratio 13 Ratio (12-20); Blood Urea Nitrogen 10 mg/dL (9-23); Calcium 9.4 mg/dL (8.3-10.6); Carbon Dioxide 32.1 mMol/L (20.0-31.0); Chloride 100 mMol/L (98-107); Creatinine (Component) 0.8 mg/dL (0.6-1.3); Glucose 244 mg/dL (74-106); Osmolality,Calculated 291 (275-295); Potassium 3.7 mMol/L (3.4-5.1); Sodium 143 mMol/L (136-145); eGFR > 60 See Note
[2025-06-22 13:35] LABS: Basophils # (Auto) 0.0 Thou/mm3 (0.0-0.2); Basophils % (Auto) 0 % (0-2.5); Eosinophils # (Auto) 0.1 Thou/mm3 (0.0-0.5); Eosinophils % (Auto) 2 % (0-10); Hematocrit 35.9 % (36.0-46.0); Hemoglobin 10.4 g/dL (12.0-16.0); Immature Granulocytes Auto 0.02 Thou/mm3 (0.00-0.00); Lymphocytes # (Auto) 0.6 Thou/mm3 (1.0-4.8); Lymphocytes % (Auto) 9 % (10-50); Mean Corpuscular HGB Conc 29.0 g/dl (31.0-37.0); Mean Corpuscular Hemoglobin 23.9 pg (25.0-35.0); Mean Corpuscular Volume 83 fL (80-100); Monocytes # (Auto) 0.5 Thou/mm3 (0.0-0.8); Monocytes % (Auto) 7 % (0-12); Neutrophils # (Auto) 5.5 Thou/mm3 (1.8-7.7); Neutrophils % (Auto) 81 % (37-80); Nucleated Red Blood Cell # 0.00 Thou/mm3 (0.00-0.00); Nucleated Red Blood Cell % 0 /100 WBC (0); Platelet Count 228 Thou/mm3 (140-440); RDW Standard Deviation 51.9 fL (36.4-46.3); Red Blood Count 4.35 Miln/mm3 (4.00-5.20); White Blood Count 6.7 Thou/mm3 (3.6-11.0)
[2025-06-22 13:45] LABS: INR 1.1 (0.9-1.3); Partial Thromboplastin Time 25.1 Seconds (22.0-36.0); Prothrombin Time 11.8 Seconds (9.0-12.2)
[2025-06-23] VITALS (19 sets, daily range): BP systolic 124–157; BP diastolic 60–97; PULSE 74–90; RESP 17–26; TEMP 36.3–36.7; O2SAT 91–97
--- NOTE | 2025-06-23 12:42 | PC.NURSE ---
1039: Pt received for recovery,. Report from Doug WEBSTER. Pt awake, alert. Resp even, unlabored. VS stable, Right groin with femoral and venous sheaths in place. No swelling, hematoma. TRBand right wrist dry, clean, intact with no swelling, hematoma. Purewick external catheter connected to suction. Pt voiding clear, yellow urine. No c/o pain. 1110: Femoral and venous sheaths removed by Jakob WEBSTER. No bleeding, hematoma. Gauze secured with tegaderm applied to sites. No c/o pain. 1130: TR Band air release started 1230: TR Band air release complete. No swelling, hematoma. Tegaderm and coban applied to right wrist. 1240: Lunch meal received. Pt tolerating po fluids and food with no difficulty swallowing and no n/v.
--- NOTE | 2025-06-23 15:29 | PC.NURSE ---
1400: Friend transporting pt home will not be available until 1510 hr. This information shared with pt. 1520: Pt fully awake, oriented x3. VS stable. Dressings to right wrist and right groin dry, clean, intact. Both areas without swelling, discoloration. Pt denies pain. Pt dressed and assisted to transport chair. Ambulation steady. Pt and friend stated understanding of discharge instructions. Pt discharged from [facility] Room Attendant in stable condition.
--- NOTE | 2025-06-23 16:04 | PD.CARDCATH ---
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 Left heart and right heart cardiac catheterization including right, left coronary angiograms and left ventriculogram - CPT 16549 2. Ultrasound-guided access of the right radial artery and right femoral vein - CPT 03408 3. Conscious sedation for 30 minutes - CPT 40043 4. Abdominal aortogram. - CPT 64879. 5. Bilateral lower extremity run off. - CPT 96035. Procedure Narrative HISTORY AND INDICATIONS: 89-year-old female with a past medical history of severe aortic stenosis with a valve area of 0.8 sq cm, V-max of 4.1 m/s, diastolic congestive heart failure and paroxysmal atrial fibrillation diagnosed in December 2024, COPD on 2 L home oxygen from secondhand smoke since 2019, essential hypertension, history of GI bleed in December 2024 not on anticoagulation for A-fib secondary to lower GI bleed, GERD, depression, nephrolithiasis, osteoarthritis status post knee replacements. Patient was recommended a cardiac catheterizarion as preparation for aortic valve replacement. Patient was brought in for an elective cardiac catheterization. Patient is a candidate for left and right coronary angiograms hence schedule for cardiac catheterization today. Discussed with patient risks, benefits and alternatives of performing left with coronary angiogram including the risks of bleeding, heart rate, stroke and with the procedure. Patient understands the risks and is willing to undergo the procedure. Consent provided for the same. H&P updated and consent was signed prior to the procedure DESCRIPTION OF PROCEDURE: The patient was brought to the cardiac catheterization lab and all asceptic precautions were followed. Patient was given 1 Mg of Versed and 50 mcg of fentanyl for moderate conscious sedation. 2 mL of lidocaine was given in the right wrist. The right radial artery was accessed via the ultrasound guidance as well as micropuncture technique. A 6 Vincentian glide sheath was introduced. Patient already had right antecubital vein access placed. Right antecubital vein access was cleaned appropriately and all aseptic precautions was followed and exchanged into a micropuncture catheter with the help of a micropuncture wire and then introduced and a 7 Vincentian sheath into the antecubital vein access with the help of a J-wire. A 7 Vincentian qawalangin catheter was used to direct catheter into the right atrium with inflated balloon. A 10 ml of lidocaine was then injected in the right femoral area and right femoral vein vein was accessed with ultrasound guidance and micropuncture technique. A 7 sami femoral sheath was used. A 7 Vincentian [place] catheter was used with a [place] wire to direct into the right atrium with inflated balloon. Serial measurements of right atrium, right ventricle, pulmonary artery and pulmonary capillary wedge were taken severely with normal respiration as well as at end expiration as noted below. We then used a 6 Vincentian TIG 4 catheter to perform the left and right coronary angiogram as well as a left ventriculogram which showed the following findings. LHC findings: 1. Left ventricular ejection fraction was 55-60% without any regional wall motion abnormalities. LVEDP was normal at 18 mmHg. There was significant transvalvular aortic gradient. 2. Right dominant circulation left main artery is a large-caliber vessel with 20% stenosis of distal segment. Ramus branch with 10-20% stenosis in the proximal segment. 3. LAD is a large sized artery with 20% stenosis of ostial segment. Medium size diagonal and does not show any significant disease. 4. LCx is a small sized artery with medium OM1 and small OM2 without any significant disease. 5. RCA is a large artery with nedium RPDA and RPL without any significant disease. RHC findings: Mean right atrial pressure was 6 mmHg. Right atrial pressure was 13/7 mmHg. Pulmonary artery pressure was 31/16 mmHg with a mean of 22 mmHg. Mean pulmonary capillary wedge pressure was 14 mmHg. TPG was 8 mmHg Pulmonary artery PA saturation was 63.0%.? Arterial saturation was 90.5% on room air. Cardiac output was 4.19 L/min and cardiac index was normal at 2.26 L/min/m? A radial band was used to achieve the hemostasis of the right radial artery access and manual hemostasis for the right antecubital vein. Patient will be monitored in the cardiac deli manager for the next 2 to 3 hours and will be sent to the telemetry floor. Patient recommended to follow-up with me in the office within 7 days after discharge. Complications: None Specimens: None Blood loss: Estimated 5 ml Summary/findings: 1. Severe aortic stenosis: LHC showed mild CAD with 20% stenosis of distal left main, ostial LAD and 10-20% stenosis of proximal ramus. Rest of coronaries without any angiographically significant obstruction and few luminal irregularities. 2. LVEF was 55-60% 3. LVEDP was 18 mm hg. There is significant transvalvular aortic gradient. 4. Normal right heart pressures with mean RA of 6 mm hg, mean PA of 22 mmhg and mean PCWP at 14 mm hg. Recommendations: 1. Recommend aggressive medical management and aggressive risk factor modification. 2. Patient recommended not to lift more than 5 lbs for the next 7-10 days and follow up with me in my office in 7 days. Wenceslao Aguilar MD Interventional Cardiology.
[2025-06-30 09:07] LABS: O2 Saturation (Cath Lab) 91 % (91-98); Puncture Site Aortic
== END 2025-06-23 15:20 | disposition home or self-care (01) ==
PROVIDERS: PCP Family Medicine; Referring Provider Internal Medicine Cardiovascular Disease; Visit Provider Internal Medicine Cardiovascular Disease
PROC: (CPT 93460; principal; 2025-06-23 09:00)
DX: I35.0 Nonrheumatic aortic (valve) stenosis (principal); I25.10 Atherosclerotic heart disease of native coronary artery without angina pectoris; J44.9 Chronic obstructive pulmonary disease, unspecified; I50.32 Chronic diastolic (congestive) heart failure; Z87.19 Personal history of other diseases of the digestive system; I48.0 Paroxysmal atrial fibrillation; I11.0 Hypertensive heart disease with heart failure; K21.9 Gastro-esophageal reflux disease without esophagitis; Z01.810 Encounter for preprocedural cardiovascular examination; Z87.442 Personal history of urinary calculi; Z96.653 Presence of artificial knee joint, bilateral; Z99.81 Dependence on supplemental oxygen; F32.A Depression, unspecified
CPT/HCPCS: 93460; 36415; 75625; 75710; 80048; 82810; 85025; 85347; 85610; 85730; 93005; 99152; 99153; A4649; C1751; C1769; C1887; C1894; J0168; J0461; J1643; J2250; J2312; J2371; J3010; J3490; Q9967; C1725

== ENCOUNTER → 2025-07-16 | Outpatient (CLI) | payer MEDICARE, BC, SELFPAY ==
--- NOTE | 2025-07-16 | XR_ITS ---
Examination: PA lateral chest 2 views TECHNIQUE: Upright PA lateral chest 2 views Date and time: July 16, 2025 1240 hours INDICATIONS: COPD diagnosis, history CHF FINDINGS: Large retrocardiac gastric hernia Mild enlargement cardiac contour Moderate vascular congestion Subtle septal edema at the lung bases Prominent osteopenia IMPRESSION: Mild heart failure, significantly improved compared with January 09, 2025
[2025-07-16 13:24] LABS: Basophils # (Auto) 0.0 Thou/mm3 (0.0-0.2); Basophils % (Auto) 0 % (0-2.5); Eosinophils # (Auto) 0.1 Thou/mm3 (0.0-0.5); Eosinophils % (Auto) 2 % (0-10); Hematocrit 30.3 % (36.0-46.0); Hemoglobin 9.0 g/dL (12.0-16.0); Immature Granulocytes Auto 0.02 Thou/mm3 (0.00-0.00); Lymphocytes # (Auto) 1.1 Thou/mm3 (1.0-4.8); Lymphocytes % (Auto) 16 % (10-50); Mean Corpuscular HGB Conc 29.7 g/dl (31.0-37.0); Mean Corpuscular Hemoglobin 22.9 pg (25.0-35.0); Mean Corpuscular Volume 77 fL (80-100); Monocytes # (Auto) 0.7 Thou/mm3 (0.0-0.8); Monocytes % (Auto) 10 % (0-12); Neutrophils # (Auto) 5.1 Thou/mm3 (1.8-7.7); Neutrophils % (Auto) 73 % (37-80); Nucleated Red Blood Cell # 0.00 Thou/mm3 (0.00-0.00); Nucleated Red Blood Cell % 0 /100 WBC (0); Platelet Count 222 Thou/mm3 (140-440); RDW Standard Deviation 49.1 fL (36.4-46.3); Red Blood Count 3.93 Miln/mm3 (4.00-5.20); White Blood Count 7.0 Thou/mm3 (3.6-11.0)
[2025-07-16 13:41] LABS: B-Type Natriuretic Peptide 173 pg/mL (0-100)
[2025-07-16 13:43] LABS: Albumin, Serum 4.0 gm/dL (3.4-4.8); Anion Gap 7 (7-16); BUN/Creatinine Ratio 13 Ratio (12-20); Blood Urea Nitrogen 9 mg/dL (9-23); Calcium 9.0 mg/dL (8.3-10.6); Calcium (Corrected) 9.0 mg/dL (8.5-10.1); Carbon Dioxide 35.1 mMol/L (20.0-31.0); Chloride 100 mMol/L (98-107); Creatinine (Component) 0.7 mg/dL (0.6-1.3); Glucose 94 mg/dL (74-106); Osmolality,Calculated 281 (275-295); Phosphorous 3.6 mg/dL (2.4-5.1); Potassium 4.1 mMol/L (3.4-5.1); Sodium 142 mMol/L (136-145); eGFR > 60 See Note
== END | disposition home or self-care (01) ==
LOC: CDIM 11:18 → COPL 12:47
PROVIDERS: PCP Family Medicine; Referring Provider Family Medicine; Visit Provider Radiology Diagnostic Radiology
DX: I50.22 Chronic systolic (congestive) heart failure (principal)
CPT/HCPCS: 36415; 71046; 80069; 83880; 85025